=== PATIENT | female | born 1940 | race Caucasian/White ===

== ENCOUNTER → 2018-12-30 13:47 | Outpatient (CLI) | payer MEDICARE, OTHER, SELFPAY ==
--- NOTE | 2018-12-30 | DI.RAD.S_ITS ---
PROCEDURE: XR CHEST 2V INDICATIONS: COUGH TECHNIQUE: 2 views of the chest were acquired. COMPARISON: None. FINDINGS: Surgical changes and devices: None. Lungs and pleura: No acute consolidation. Scattered subsegmental atelectasis and/or scarring ill-defined subcentimeter nodule projecting in the right upper lobe. No pleural effusions or pneumothorax. Mediastinum: Mediastinal contours are normal. Heart size is normal. Bones and chest wall: No suspicious bony abnormalities. Soft tissues appear unremarkable. IMPRESSION: No acute consolidation. Scattered scarring/atelectasis. Ill-defined right upper lobe pulmonary nodule, indeterminate in the absence of prior studies. Cannot exclude metastatic or malignant possibilities at this time. Recommend further assessment with noncontrast chest CT, or alternatively at clinical discretion followup PA and lateral chest radiographs in 3 months could be performed. Findings and recommendations were personally telephoned and discussed with Dr. Chang (covering for Dr. Jolly) on 12/31/18 Dictated by: Juan Carlos Clement M.D. on 12/31/2018 at 9:14 Approved by: Juan Carlos Clement M.D. on 12/31/2018 at 9:39
== END ==
PROVIDERS: PCP Internal Medicine; Visit Provider Internal Medicine
DX: R05 Cough (principal); R91.1 Solitary pulmonary nodule
CPT/HCPCS: 71046

== ENCOUNTER → 2019-01-23 16:55 | Outpatient (CLI) | payer MEDICARE, OTHER, SELFPAY ==
--- NOTE | 2019-01-30 17:15 | PM.PFT.1 ---
Pulmonary Function Test Referral & Results Date Patient Seen: 01/23/19 Requesting provider: Frances Jolly Results: The spirometry demonstrates an FVC of 2.60 L which is 88% of predicted. The FEV1 was measured at 1.72 L which is 70% of predicted. The FEV1/FVC ratio was 66 which is 89% of predicted. Following the administration of bronchodilator there was a 47% improvement in FEF 25-75%. Lung volumes show an SVC of 2.58 L which is 88% of predicted. The diffusing capacity was measured at 16.51 which is 59% of predicted. No hemoglobin value was provided, so no correction for potential anemia could be made, if appropriate. The maximum voluntary ventilation was reduced Interpretation: This study demonstrates mild obstructive lung disease with limited evidence of benefit following bronchodilator particularly small airway flows based on improvement in FEF 25-75% There is more significant reduction in diffusing capacity suggesting more significant disease of the capillary alveolar level
== END ==
PROVIDERS: PCP Internal Medicine; Visit Provider Internal Medicine
DX: R05 Cough (principal)
CPT/HCPCS: 94060; 94726; 94729

== ENCOUNTER → 2019-02-16 11:21 | Outpatient (CLI) | payer MEDICARE, OTHER, SELFPAY ==
[2019-02-16 12:01] LABS: Add Manual Diff / Slide Review NO; Basophils Absolute Auto 0 /uL (0-100); Basophils Percent Auto 0.4 % (0-2); Eosinophils Absolute Auto 400 /uL (0-450); Eosinophils Percent Auto 6.2 % (2-4); Hematocrit 42.3 % (36-46); Hemoglobin 14.4 g/dL (12.0-16.0); Lymphocytes Absolute Auto 2100 /uL (1100-4500); Lymphocytes Percent Auto 30.4 % (25-40); Mean Corpuscular HGB Conc 33.9 % (30-36); Mean Corpuscular Hemoglobin 31.6 PG (26-34); Mean Corpuscular Volume 93.2 fL (80-100); Monocytes Absolute Auto 700 /uL (0-900); Monocytes Percent Auto 9.5 % (3-14); Neutrophils Absolute Auto 3700 /uL (1500-7000); Neutrophils Percent Auto 53.5 % (50-75); Platelet Count 277 X10^3/uL (150-400); Red Blood Cell Count 4.54 X10^6/uL (4.0-5.2); Red Cell Distribution Width 12.6 % (11.6-14.8); White Blood Cell Count 6.9 X10^3/uL (4.5-11.0)
[2019-02-16 12:31] LABS: Alanine Aminotransferase 27 IU/L (9-52); Albumin 4.4 g/dL (3.5-5.0); Albumin Globulin Ratio 1.4 (1.0-2.8); Alkaline Phosphatase 87 U/L (38-126); Aspartate Aminotransferase 42 IU/L (14-36); BUN Creatinine Ratio 23.3 (6-22); Bilirubin Total 0.5 mg/dL (0.2-1.3); Blood Urea Nitrogen 14 mg/dL (7-17); Calcium 10.2 mg/dL (8.4-10.2); Carbon Dioxide 30 mmol/L (22-32); Chloride 99 mmol/L (98-107); Estimated Glomerular Filt Rate > 60.0 mL/min (>60); Globulin 3.1 g/dL (1.7-4.1); Glucose 70 mg/dL (80-110); HEMOLYSIS < 15 (0-50); Potassium 4.7 mmol/L (3.4-5.1); Sodium 137 mmol/L (137-145); Total Protein 7.5 g/dL (6.3-8.2)
[2019-02-16 12:38] LABS: B Type Natriuretic Peptide < 100 (<100)
== END ==
PROVIDERS: PCP Internal Medicine; Visit Provider Internal Medicine
DX: R06.00 Dyspnea, unspecified (principal)
CPT/HCPCS: 36415; 80053; 83880; 85025

== ENCOUNTER → 2019-02-20 11:46 | Outpatient (CLI) | payer MEDICARE, OTHER, SELFPAY ==
--- NOTE | 2019-02-20 | DI.CT.S_ITS ---
PROCEDURE: CT CHEST WO CON INDICATIONS: LUNG NODULE TECHNIQUE: Noncontrast 2.0-2.5 mm thick sections acquired from the pulmonary apices to the posterior costophrenic angles. 7 mm thick coronal and sagittal MIP reformats were then acquired. A low radiation dose technique was utilized. COMPARISON: [facility], CR, XR CHEST 2V, 12/30/2018, 14:15. FINDINGS: Image quality: Diagnostic, given the low radiation dose technique. Lungs and pleura: At the apex of the superior segment right lower lobe seen on series 3 image 94 there is a 1.6 x 0.8 cm mildly spiculated radiodensity that extends into the major fissure superiorly, which on the lateral reformatt and projection has an appearance of tracking slightly into the major fissure and abutting the posterior pleural surface. This has a craniocaudad dimension of 1.3 cm at the pleural surface. Incidental nose made of a small calcified granuloma posterior costophrenic sulcus at the left lower lobe. Mediastinum: Heart size is normal. No pericardial effusion. No mediastinal adenopathy by size criteria. Thoracic aorta and central pulmonary arteries are normal in size. Esophagus is normal in caliber. No hiatal hernia. Bones and chest wall: No suspicious bony lesions. No vertebral body compression fractures. No axillary or supraclavicular adenopathy by size criteria. Thyroid gland appears normal where well visualized. Abdomen: Visualized upper abdomen solid organs and bowel loops appear normal in the absence of contrast. IMPRESSION: 1.6 x 0.8 x 1.3 cm mildly spiculated radiodensity centered within the apex of the superior segment of the right lower lobe, extending into the major fissure pleural surface and tracking slightly along the adjacent posterior pleural surface. Given this position and its apposition to the posterior pleural surface if this represents a pulmonary malignancy chest wall invasion at an early stage of progression would be of concern at this time. Therefore it is recommended that the patient proceeded to nuclear medicine PET CT scanning for solitary pulmonary nodule workup now to assist in differentiating between inflammatory versus malignant etiology of this finding. Old small calcified granuloma the costophrenic sulcus left lower lobe region. Dictated by: Luis Meza M.D. on 02/20/2019 at 13:53 Approved by: Luis Meza M.D. on 02/20/2019 at 14:00
== END ==
PROVIDERS: PCP Internal Medicine; Visit Provider Internal Medicine
DX: R91.1 Solitary pulmonary nodule (principal)
CPT/HCPCS: 71250

== ENCOUNTER 2019-06-16 11:00 | Day surgery (SDC) | payer MEDICARE, OTHER, SELFPAY ==
[2019-06-16 11:48] VITALS: BP 161/75; PULSE 64; RESP 16; TEMP 36.6; O2SAT 99; BMI 20.9
[2019-06-16] MEDS: CATARACT EYE COMPOUND (10 DROPS/SYRINGE) 3 DROPS EYE-OP (12:05)
[2019-06-16] MEDS: PROPARACAINE 0.5% OPHTH SOL 2 DROPS EYE-OP (12:05)
--- NOTE | 2019-06-16 12:36 | PM.PREOP ---
Pre-operative Note Interval Note History & Physical reviewed/Exam performed by Physician: No Changes to H&P: No
--- NOTE | 2019-06-16 12:36 | PM.OP.1 ---
Operative Date/Time/Diagnoses Pre-op diagnosis: Nuclear cataract right eye Procedure & Clinicians Procedure: Cataract Surgery Same procedure as scheduled: Yes Surgeon: Cornell Barrios Anesthesia Type: MAC +/- and Sedation Operative Notes Procedure in detail: Patient brought to the operating suite. Tetracaine drops placed in the right eye. Patient was prepped and draped in sterile manner. Wire lid speculum was placed in the eye. Betadine drops were placed on the eye. This was irrigated. Lidocaine jelly was placed on the eye. A paracentesis port was created with a side-port blade. 0.1 mL 1% preservative free lidocaine was injected into the anterior chamber. The anterior chamber was deepened with viscoelastic. 2.6 mm keratome was used to create a temporal clear corneal incision. Cystotome and Utrata forceps were used to create continuous tear capsulorrhexis. Balanced salt solution was used to hydro dissect the nucleus. The phacoemulsification handpiece was inserted and the nucleus was removed using the stop and chop technique. The irrigation aspiration handpiece was inserted and the remaining cortex was removed. Anterior chamber was deepened with viscoelastic. An Hinton ZCB00 intraocular lens with a power of 19.0 was injected into the capsular bag. Irrigation aspiration handpiece was inserted and the remaining viscoelastic was removed. Incision was hydrated with balanced salt solution and found to be leak free with pressure with Weck-Jenny sponges. 0.1 mL Vigamox injected anterior chamber. 0.3 mL Kenalog 10 mg was injected subconjunctivally. Lid speculum was removed. The patient left the operating room in excellent condition. Complications: none Post-operative Condition: stable Disposition: same day surgery
[2019-06-16] MEDS: CHONDROIDTIN/SOD HYALURONATE 1.05 ML SYRINGE INTRAOCULA (13:01)
[2019-06-16] MEDS: PHENYLEPHRINE/LIDOCAINE VIAL (OR) 0.2 ML EYE-OP (13:01)
[2019-06-16] MEDS: TRIAMCINOLONE 50 MG/5 ML VIAL INJ (13:01)
[2019-06-16] MEDS: LIDOCAINE JELLY 2% 5 ML 1 APPLIC TOP (13:02)
[2019-06-16] MEDS: BALANCED SALT IRRIG SOLN NO.2 500 ML, EPINEPHrine 1 MG IRR (13:02)
[2019-06-16] MEDS: MOXIFLOXACIN 0.5% OPHTH 60 DROPS/BOTTLE DROPS EYE-BOTH (13:02)
[2019-06-16] MEDS: TETRACAINE 0.5% OPHTH DROPS 4 ML 2 DROPS EYE-OP (13:02)
[2019-06-16 13:15] VITALS: BP 132/82; PULSE 63; RESP 16; TEMP 36.4; O2SAT 96
== END 2019-06-16 13:41 | disposition home or self-care (01) ==
PROVIDERS: Family Provider Internal Medicine; PCP Internal Medicine; Visit Provider Ophthalmology
PROC: (CPT 66984; principal; 2019-06-16 12:45)
DX: H25.11 Age-related nuclear cataract, right eye (principal); J44.9 Chronic obstructive pulmonary disease, unspecified
CPT/HCPCS: 66984; J0171; J2250; J3301

== ENCOUNTER 2019-07-14 08:02 | Day surgery (SDC) | payer MEDICARE, OTHER, SELFPAY ==
[2019-07-14 09:02] VITALS: BP 136/76; PULSE 74; RESP 16; TEMP 36.2; O2SAT 99; BMI 20.9
--- NOTE | 2019-07-14 09:27 | PM.PREOP ---
Pre-operative Note Interval Note History & Physical reviewed/Exam performed by Physician: No Changes to H&P: No
--- NOTE | 2019-07-14 09:27 | PM.OP.1 ---
Operative Date/Time/Diagnoses Pre-op diagnosis: Nuclear Cataract Left eye Post-op diagnosis: same Procedure & Clinicians Surgeon: Cornell Barrios Anesthesia Type: MAC +/- and Sedation Operative Notes Procedure in detail: Patient brought to the operating suite. Tetracaine drops placed in the left eye. Patient was prepped and draped in sterile manner. Wire lid speculum was placed in the eye. Betadine drops were placed on the eye. This was irrigated. Lidocaine jelly was placed on the eye. A paracentesis port was created with a side-port blade. 0.1 mL 1% preservative free lidocaine was injected into the anterior chamber. The anterior chamber was deepened with viscoelastic. 2.6 mm keratome was used to create a temporal clear corneal incision. Cystotome and Utrata forceps were used to create continuous tear capsulorrhexis. Balanced salt solution was used to hydro dissect the nucleus. The phacoemulsification handpiece was inserted and the nucleus was removed using the stop and chop technique. The irrigation aspiration handpiece was inserted and the remaining cortex was removed. Anterior chamber was deepened with viscoelastic. An Hinton ZCB00 intraocular lens with a power of 18.5 was injected into the capsular bag. Irrigation aspiration handpiece was inserted and the remaining viscoelastic was removed. Incision was hydrated with balanced salt solution and found to be leak free with pressure with Weck-Jenny sponges. 0.1 mL Vigamox injected anterior chamber. 0.3 mL Kenalog 10 mg was injected subconjunctivally. Lid speculum was removed. The patient left the operating room in excellent condition. Complications: none Post-operative Condition: stable Disposition: same day surgery
[2019-07-14] MEDS: PROPARACAINE 0.5% OPHTH SOL 2 DROPS EYE-OP (09:33)
[2019-07-14] MEDS: CATARACT EYE COMPOUND (10 DROPS/SYRINGE) 3 DROPS EYE-OP (09:34)
[2019-07-14] MEDS: LIDOCAINE JELLY 2% 5 ML 1 APPLIC TOP (09:42)
[2019-07-14] MEDS: MOXIFLOXACIN INJ 5 MG/ML VIAL EYE-OP (09:42)
[2019-07-14] MEDS: CHONDROIDTIN/SOD HYALURONATE 1.05 ML SYRINGE INTRAOCULA (09:42)
[2019-07-14] MEDS: PHENYLEPHRINE/LIDOCAINE VIAL (OR) 0.2 ML EYE-OP (09:42)
[2019-07-14] MEDS: TETRACAINE 0.5% OPHTH DROPS 4 ML 2 DROPS EYE-OP (09:42)
[2019-07-14] MEDS: TRIAMCINOLONE 50 MG/5 ML VIAL INJ (09:43)
[2019-07-14] MEDS: BALANCED SALT IRRIG SOLN NO.2 500 ML, EPINEPHrine 1 MG IRR (09:43)
[2019-07-14 10:05] VITALS: BP 126/70; PULSE 66; RESP 16; TEMP 36.9; O2SAT 99
== END 2019-07-14 10:24 | disposition home or self-care (01) ==
PROVIDERS: Family Provider Internal Medicine; PCP Internal Medicine; Visit Provider Ophthalmology
PROC: (CPT 66984; principal; 2019-07-14 09:45)
DX: H25.12 Age-related nuclear cataract, left eye (principal); J44.9 Chronic obstructive pulmonary disease, unspecified
CPT/HCPCS: 66984; J0171; J2250; J3301

== ENCOUNTER → 2020-02-03 18:40 | Outpatient (CLI) | payer MEDICARE, OTHER, SELFPAY ==
--- NOTE | 2020-02-03 | DI.MRI.S_ITS ---
PROCEDURE: MR LUMBAR SPINE WO CON INDICATIONS: Low back pain TECHNIQUE: Noncontrast sagittal T1 spin echo and T2 fast echo, sagittal STIR, axial T1 and T2 fast spin echo through the lumbar spine. In cases with scoliosis, additional coronal T2 fast spin echo may be performed. COMPARISON: None. FINDINGS: Image quality: Excellent. Alignment and Curvature: Partially visualized scoliosis. Trace retrolisthesis of L3 on L4. Bone Marrow: Multilevel degenerative endplate sclerosis and spurring. Diffuse facet arthropathy. No fracture. Spinal Cord: Conus medullaris terminates at the L1 level. Visualized cord demonstrates normal signal and size. Paraspinous Soft Tissues: No paravertebral masses. L1-L2: Normal appearance. L2-L3: No canal stenosis. Partial effacement of both lateral recesses with bilaterally symmetric appearance. Mild left foraminal stenosis. No right foraminal narrowing. L3-L4: Central disc protrusion with mild canal narrowing. Partial effacement of both lateral recesses with bilaterally symmetric appearance. Mild left foraminal narrowing. Mild/moderate right foraminal stenosis with borderline nerve root compression. L4-L5: Mild canal narrowing. Partial effacement of both lateral recesses with bilaterally symmetric appearance. Mild left foraminal narrowing with slight nerve root compression. Severe right foraminal stenosis with nerve root compression L5-S1: Mild central canal narrowing. Near complete effacement of both lateral recesses with bilaterally symmetric appearance. Severe bilateral foraminal stenoses, right greater left with nerve root compression on both sides IMPRESSION: Multilevel spondylosis and facet arthropathy. Diffuse bilateral foraminal stenoses as detailed above by spinal level Trace retrolisthesis of L3 on L4 Scoliosis Dictated by: Juan Carlos Clement M.D. on 02/04/2020 at 9:12 Approved by: Juan Carlos Clement M.D. on 02/04/2020 at 9:22
== END ==
PROVIDERS: Family Provider Internal Medicine; PCP Internal Medicine; Referring Provider Orthopaedic Surgery; Visit Provider Orthopaedic Surgery
DX: M54.5 Low back pain (principal); M47.816 Spondylosis without myelopathy or radiculopathy, lumbar region; M48.061 Spinal stenosis, lumbar region without neurogenic claudication; M48.07 Spinal stenosis, lumbosacral region; M41.9 Scoliosis, unspecified
CPT/HCPCS: 72148

== ENCOUNTER 2020-03-03 10:45 | Observation (INO) | payer MEDICARE, OTHER, SELFPAY ==
[2020-03-03 10:40] VITALS: BP 127/63; PULSE 67; RESP 14; TEMP 36.4; O2SAT 99; BMI 21.4
--- NOTE | 2020-03-03 10:45 | DI.RAD.S_ITS ---
PROCEDURE: XR HIP W PEL IF DONE LT 2V INDICATIONS: fall with left hip pain TECHNIQUE: AP pelvis with lateral view(s) of the left hip(s). COMPARISON: None. FINDINGS: Bones: No definite fractures or dislocations but there is left greater than right degenerative hip joint osteoarthritis that is moderate in overall severity. Additionally, a diagonal lucency may represent a fracture margin there is involving the upper and middle thirds of the medial border of the left symphysis pubis. Pelvic ring appears intact. No suspicious bony lesions. Soft tissues: The visualized bowel gas pattern is normal. No suspicious soft tissue calcifications. IMPRESSION: Left greater than right hip joint osteoarthritis, no definite fracture found. Incidental note is made of a possible diagonal fracture through the medial border of the upper left symphysis pubis. CT scanning is scheduled. Dictated by: Luis Meza M.D. on 03/03/2020 at 11:48 Approved by: Luis Meza M.D. on 03/03/2020 at 11:51
[2020-03-03 11:18] VITALS: BP 127/63; PULSE 66; O2SAT 93
[2020-03-03] MEDS: SODIUM CHLORIDE 0.9% 1,000 ML 150 ML IV (11:19)
[2020-03-03] MEDS: ONDANSETRON 4 MG/2 ML INJ IV (11:20)
--- NOTE | 2020-03-03 11:30 | DI.CT.S_ITS ---
PROCEDURE: CT PEL WO CON INDICATIONS: fall with severe hip and pelvis pain TECHNIQUE: Noncontrast 3 mm axial sections acquired through the bony pelvis, with coronal and sagittal reformatting. COMPARISON: [facility], CR, XR HIP W PEL IF DONE LT 2V, 03/03/2020, 10:40. FINDINGS: Image quality: Excellent. Bones: Acute fracture involving lateral portion of the left sacral ala is seen near left sacroiliac joint with up to 2.6 mm diastases at fracture site. There is also acute fracture of the medial portion of left superior pubic ramus extending to involve anteromedial aspect of left acetabulum. No significant displacement is noted. Slightly displaced fracture is noted involving medial portion of left superior pubic ramus near symphysis pubis with up to 2.7 mm displacement at fracture site. Minimally displaced fracture is also noted involving the proximal to midportion of left inferior pubic ramus. No fracture is noted in right hemipelvis. Moderate bilateral hip joint osteoarthritic changes are seen worse on the left side. Degenerative disc disease in visualized lower lumbar spine is seen. No evidence of avascular necrosis of femoral head. No suspicious intraosseous lesion. Soft tissues: There is mild soft tissue swelling adjacent to left pubic rami fracture sites. Asymmetrically enlarged left abductor muscles are seen with suggestion of ill-defined intramuscular hematoma. No significant joint effusion. No pelvic free fluid or free air. Bladder wall thickness is normal. No bowel wall thickening. IMPRESSION: 1. Acute minimally displaced fracture involving lateral portion of left sacral ala near sacroiliac joint. 2. Acute minimally displaced fractures involving medial aspect of left superior pubic ramus near symphysis pubis. Nondisplaced fracture involving lateral portion of left superior pubic ramus extending to involve anterior medial aspect of left acetabulum. Minimally displaced proximal to midshaft of left inferior pubic ramus fracture. 3. Left worse than right bilateral hip joint osteoarthritis. No evidence of avascular necrosis. 4. Asymmetrically enlarged left pelvic floor muscles with suggestion of intramuscular hematoma. No significant joint effusion. No pelvic free fluid or free air. Dictated by: Jalen Ruano M.D. on 03/03/2020 at 12:01 Approved by: Jalen Ruano M.D. on 03/03/2020 at 12:07
[2020-03-03 12:05] LABS: Add Manual Diff / Slide Review NO; Basophils Absolute Auto 0 /uL (0-100); Basophils Percent Auto 0.1 % (0-2); Eosinophils Absolute Auto 100 /uL (0-450); Hematocrit 37.7 % (36-46); Hemoglobin 12.6 g/dL (12.0-16.0); Lymphocytes Absolute Auto 700 /uL (1100-4500); Lymphocytes Percent Auto 6.7 % (25-40); Mean Corpuscular HGB Conc 33.4 % (30-36); Mean Corpuscular Hemoglobin 31.4 PG (26-34); Monocytes Absolute Auto 600 /uL (0-900); Monocytes Percent Auto 5.3 % (3-14); Neutrophils Absolute Auto 9500 /uL (1500-7000); Neutrophils Percent Auto 86.9 % (50-75); Platelet Count 191 X10^3/uL (150-400); Red Blood Cell Count 4.01 X10^6/uL (4.0-5.2); Red Cell Distribution Width 12.9 % (11.6-14.8); White Blood Cell Count 10.9 X10^3/uL (4.5-11.0)
[2020-03-03 12:19] LABS: BUN Creatinine Ratio 27.3 (6-22); Blood Urea Nitrogen 15 mg/dL (7-17); Calcium 8.9 mg/dL (8.4-10.2); Carbon Dioxide 23 mmol/L (22-32); Chloride 103 mmol/L (98-107); Estimated Glomerular Filt Rate > 60.0 mL/min (>60); Glucose 120 mg/dL (80-110); HEMOLYSIS < 15 (0-50); Potassium 4.1 mmol/L (3.4-5.1); Sodium 132 mmol/L (137-145)
--- NOTE | 2020-03-03 12:25 | ED_ITS ---
HPI - Fall General Chief Complaint: Fall Stated Complaint: GLF - L hip pain Time Seen by Provider: 03/03/20 10:45 Source: patient and EMS Mode of arrival: EMS Limitations: no limitations History of Present Illness HPI Narrative: 79-year-old female nonsmoker with history of asthma and a prior episode of lumbar radiculopathy presents with a chief complaint of severe left hip pain after an accidental fall just prior to arrival. She was walking her dog which changed another animal in pulled her onto her left side. She has significant pain with any ambulation or weight-bearing. She contacted EMS and they transported her here. In an effort to help control her pain she was given 1st a small dose of ketamine and then some fentanyl which has helped tremendously. She denies any head neck or back pain. She denies any chest pain or shortness of breath. She denies any numbness, tingling or weakness. She is otherwise well and free of complaint MD complaint: fall Onset (ago): minute(s) Fall from: standing Fall witnessed: no Place fall occurred: home Loss of consciousness: none Prolonged down time: no Symptoms prior to fall: none Context: tripped/slipped Location of injury: pelvis Quality: aching Associated symptoms (after fall): denies Related Data Home Medications Medication Instructions Recorded Confirmed Spiriva with HandiHaler 1 puff INH QDAY #0 01/21/17 ascorbic acid (vitamin C) 500 mg PO QDAY #0 01/21/17 calcium acetate(phosphat bind) 667 mg PO QDAY #0 01/21/17 cholecalciferol (vitamin D3) 1 tab PO QDAY #0 01/21/17 [Vitamin D3] glucosamine sulfate-msm 1 ea PO #0 01/21/17 olopatadine [Patanol] 1 drp OPHTH #0 01/21/17 propranolol 10 mg PO QDAY #0 01/21/17 albuterol sulfate 1 inh INHALATION QID 06/16/19 06/16/19 Previous Rx's Medication Instructions Recorded cyclobenzaprine 10 mg PO QHS #10 tab 01/21/17 Allergies Allergy/AdvReac Type Severity Reaction Status Date / Time No Known Drug Allergies Allergy Verified 03/03/20 11:24 Review of Systems Constitutional Constitutional: Denies chills, Denies fatigue, Denies fever(s), Denies frequent falls, Denies lethargy and Denies weakness Eyes Eyes: Denies change in vision, Denies eye discharge, Denies irritation and Denies loss of vision ENT Ears, Nose, Mouth, and Throat: Denies change in voice, Denies dizziness, Denies neck pain, Denies sore throat and Denies throat swelling Cardiovascular Cardiovascular: Denies chest pain, Denies irregular heart rhythm, Denies lightheadedness, Denies palpitations, Denies dyspnea, Denies dyspnea on exertion and Denies orthopnea Respiratory Respiratory: Denies cough, Denies dyspnea, Denies dyspnea on exertion and Denies wheezing Gastrointestinal Gastrointestinal: Denies abdominal pain, Denies change in bowel habits, Denies diarrhea, Denies nausea and Denies vomiting Musculoskeletal Musculoskeletal: Reports arthralgias, Denies neck pain and Denies numbness Integumentary/Breasts Skin/Breast: Denies pruritus, Denies erythema, Denies rash and Denies wounds Neurologic Neurologic: Denies behavioral changes, Denies confusion, Denies dizziness, Denies frequent falls, Denies loss of vision, Denies numbness and Denies weakness Psychiatric Psychiatric: Denies anxiety, Denies behavioral changes, Denies confusion, Denies depression, Denies homicidal ideation and Denies suicidal ideation Endocrine Endocrine: Denies fatigue, Denies flushing and Denies palpitations Hematologic/Lymphatic Hematologic/Lymphatic: Denies easy bruising Allergic/Immunologic Allergic/Immunologic: Denies urticaria, Denies throat swelling and Denies wheezing Patient History Social History household members: none Smoking Status: Unknown if ever smoked Smoking Status: Unknown if ever smoked alcohol intake frequency: 0-2 drinks per day Substance Use Type: does not use Exam Narrative Exam Narrative: GENERAL: [79] year old patient appears stated age. Well- nourished, well-developed patient, in mild distress. HEAD: Atraumatic. Normocephalic. EYES: Pupils equal round and reactive. Extraocular motions intact. No scleral icterus. No injection or drainage. ENT: Nose without bleeding, purulent drainage. Throat without erythema, tonsillar hypertrophy or exudate. Airway patent. NECK: Trachea midline. Non tender CARDIOVASCULAR: Regular rate and rhythm without murmurs, gallops, or rubs. RESPIRATORY: Clear to auscultation. Breath sounds equal bilaterally. No wheezes, rales, or rhonchi. GASTROINTESTINAL: Abdomen soft, non-tender, nondistended. EXTREMITIES: Tenderness to palpation of pubic symphysis, palpation of left lateral hip and sacrum. Closed, isolated neurovascularly intact No edema or joint tenderness. BACK: Nontender without deformity or crepitance. No flank tenderness. NEURO: AOx3. SKIN: No rash or erythema of visible areas Initial Vital Signs Initial Vital Signs: Vital Signs Temperature 97.6 F 03/03/20 10:40 Pulse Rate 67 03/03/20 10:40 Respiratory Rate 14 03/03/20 10:40 Blood Pressure 127/63 03/03/20 10:40 Pulse Oximetry 99 03/03/20 10:40 Course Orders Ordered: ED Orders 03/03/20 10:45 XR hip w pel if done LT 2V Stat 03/03/20 11:30 CT pelvis wo con Stat 03/03/20 11:55 Basic Metabolic Panel Stat Complete Blood Count AUTO DIFF Stat Prothrombin Time INR Stat Sodium Chloride (Normal Saline 0.9%) 1,000 mls @ 150 mls/hr IV CONT MOSHE Last Infusion: 03/03/20 17:26 Dose: 0 mls/hr Documented by: Admin: 03/03/20 11:19 Dose: 150 mls/hr Documented by: TINA Discontinued Medications Morphine Sulfate (Morphine) 2 mg IV NOW ONE Stop: 03/03/20 15:48 Last Admin: 03/03/20 15:53 Dose: 2 mg Documented by: TINA Ondansetron HCl (Zofran) 4 mg IV NOW ONE Stop: 03/03/20 10:46 Last Admin: 03/03/20 11:20 Dose: 4 mg Documented by: TINA Consultations Consultation #1: initial call to on site orthopedics, after reviewing CT feels that there is no acetabular involvement but suggests that images be pushed to [facility] for consultation with their pelvic specialists given the involvement of the left SI joint Consultation #2[place] [facility] [place]. Patient does not need immediate surgical intervention. He recommends up to 3 days of pain control and work with PT. If no progression at that time then re-contact. They will keep chart open and Dr. Darby will remain telecommunications line mechanic. He does recommend a Pelvic AP [place] set of plain films in the event that he is recontacted Vital Signs Vital signs: Vital Signs - 8 hr 03/03/20 10:40 03/03/20 11:18 Temperature 97.6 F Pulse Rate 67 66 Respiratory Rate 14 Blood Pressure 127/63 127/63 Pulse Oximetry 99 93 - Fall Lab Data Result diagrams: 03/03/20 11:55 03/03/20 11:55 Labs: Lab Results 03/03/20 03/03/20 03/03/20 Range/Units 11:55 11:55 11:55 WBC 10.9 (4.5-11.0) X10^3/uL RBC 4.01 (4.0-5.2) X10^6/uL Hgb 12.6 (12.0-16.0) g/dL Hct 37.7 (36-46) % MCV 94.0 (80-100) fL MCH 31.4 (26-34) PG MCHC 33.4 (30-36) % RDW 12.9 (11.6-14.8) % Plt Count 191 (150-400) X10^3/uL Neut % (Auto) 86.9 H (50-75) % Lymph % (Auto) 6.7 L (25-40) % [place] % (Auto) 5.3 (3-14) % Eos % (Auto) 1.0 L (2-4) % Baso % (Auto) 0.1 (0-2) % Neut # (Auto) 9500 H (0888-0717) /uL Lymph # (Auto) 700 L (0244-5687) /uL [place] # (Auto) 600 (0-900) /uL Eos # (Auto) 100 (0-450) /uL Baso # (Auto) 0 (0-100) /uL PT 12.0 (10.1-12.7) SECONDS INR 1.0 (0.9-1.3) Sodium 132 L (137-145) mmol/L Potassium 4.1 (3.4-5.1) mmol/L Chloride 103 (98-107) mmol/L Carbon Dioxide 23 (22-32) mmol/L BUN 15 (7-17) mg/dL Creatinine 0.55 (0.52-1.04) mg/dL Estimated GFR > 60.0 (>60) mL/min BUN/Creatinine Ratio 27.3 H (6-22) Glucose 120 H (80-110) mg/dL Calcium 8.9 (8.4-10.2) mg/dL Imaging Data CT scan - abdomen/pelvis: Radiologist's Impression: Yudith Chowdhury 79 F [address] [address] [address] Scan Report Signed Patient: Yudith Chowdhury CMR#: [id number] : [id number]:[id number] Age/Sex: 79 / FDate of Service: 03/03/20 Loc: ED Accession Number: [id number] Procedure: CT pelvis wo con Ordering Provider: Jesus Collier D.O. PROCEDURE: CT PEL WO CON INDICATIONS: fall with severe hip and pelvis pain TECHNIQUE: Noncontrast 3 mm axial sections acquired through the bony pelvis, with coronal and sagittal reformatting. COMPARISON: [facility], CR, XR HIP W PEL IF DONE LT 2V, 03/03/2020, 10:40. FINDINGS: Image quality: Excellent. Bones: Acute fracture involving lateral portion of the left sacral ala is seen near left sacroiliac joint with up to 2.6 mm diastases at fracture site. There is also acute fracture of the medial portion of left superior pubic ramus extending to involve anteromedial aspect of left acetabulum. No significant displacement is noted. Slightly displaced fracture is noted involving medial portion of left superior pubic ramus near symphysis pubis with up to 2.7 mm displacement at fracture site. Minimally displaced fracture is also noted involving the proximal to midportion of left inferior p ubic ramus. No fracture is noted in right hemipelvis. Moderate bilateral hip joint osteoarthritic changes are seen worse on the left side. Degenerative disc disease in visualized lower lumbar spine is seen. No evidence of avascular necrosis of femoral head. No suspicious intraosseous lesion. Soft tissues: There is mild soft tissue swelling adjacent to left pubic rami fracture sites. Asymmetrically enlarged left abductor muscles are seen with suggestion of ill-defined intramuscular hematoma. No significant joint effusion. No pelvic free fluid or free air. Bladder wall thickness is normal. No bowel wall thickening. IMPRESSION: 1. Acute minimally displaced fracture involving lateral portion of left sacral ala near sacroiliac joint. 2. Acute minimally displaced fractures involving medial aspect of left superior pubic ramus near symphysis pubis. Nondisplaced fracture involving lateral portion of left superior pubic ramus extending to involve anterior medial aspect of left acetabulum. Minimally displaced proximal to midshaft of left inferior pubic ramus fracture. 3. Left worse than right bilateral hip joint osteoarthritis. No evidence of avascular necrosis. 4. Asymmetrically enlarged left pelvic floor muscles with suggestion of intramuscular hematoma. No significant joint effusion. No pelvic free fluid or free air. Dictated by: Jalen Ruano M.D. on 03/03/2020 at 12:01 Approved by: Jalen Ruano M.D. on 03/03/2020 at 12:07 Discharge Plan Departure Patient Disposition: Admitted As Inpatient Clinical Impression: Closed pelvic fracture Qualifiers: Encounter type: initial encounter Pelvic bone location: unspecified part of pelvis Fracture alignment: nondisplaced Qualified Code(s): S32.9XXA - Fracture of unspecified parts of lumbosacral spine and pelvis, initial encounter for closed fracture Discharge Date/Time: 03/03/20 17:40 Admit Date/Time: 03/03/20 17:19 Admit Provider: Cheryl Merino
[2020-03-03] MEDS: MORPHINE 2 MG/ML INJ IV ×2 (15:53→19:54)
[2020-03-03 17:35] VITALS: BP 137/67; RESP 16
[2020-03-03 17:55] VITALS: BP 150/72; PULSE 76; RESP 17; TEMP 37; O2SAT 99
[2020-03-03] MEDS: SODIUM CHLORIDE 0.9% 1,000 ML 125 ML IV (18:12)
[2020-03-03 18:15] VITALS: BMI 21.3
[2020-03-03 21:25] VITALS: BP 136/69; PULSE 77; RESP 17; TEMP 36.9; O2SAT 98
[2020-03-04] VITALS (8 sets, daily range): BP systolic 107–132; BP diastolic 59–79; PULSE 67–666; RESP 14–18; TEMP 36.3–36.9; O2SAT 96–97
[2020-03-04] MEDS: ACETAMINOPHEN 325 MG TABLET PO ×5 (00:12→23:57)
[2020-03-04] MEDS: MORPHINE 2 MG/ML INJ IV ×2 (00:13→04:38)
--- NOTE | 2020-03-04 00:29 | PC.NURSE ---
Patient is alert and oriented. Breath sounds CTA with RA sat of 96%. HRR. Denies nausea. BT present and abdomen is soft. Indwelling catheter is patent; urine is clear yellow. Not willing to turn in bed due to pain although states she is shifting self slightly. Did turn onto right side using Nina tilt function to change pressure. Complains of 5/10 pain in pelvis, back and ribs; medicated with Morphine. Wearing bilateral calf SCD's. Fall risk score is high and bed alarm is activated.
[2020-03-04] MEDS: SODIUM CHLORIDE 0.9% 1,000 ML 125 ML IV ×2 (02:21→14:00)
--- NOTE | 2020-03-04 02:43 | P.HP_ITS ---
History of Present Illness History of Present Illness Date Patient Seen: 03/03/20 Time Patient Seen: 22:00 Chief complaint: GLF - L hip pain Narrative: Yudith Chowdhury is a very delightful 79-year-old female who was in her usual state of health which includes COPD, when she was walking her Greyhound dog outside. Apparently the dog saw another animal and started to take off and pulled her off her feet. She fell and was then able to move after having fallen. In the emergency department she was found to have had a nondisplaced pelvic fracture extending to the sacral ala. She has a very limited medical history only having had COPD and takes supplements for medications. She is taking any prescription oral medications. She denies hitting her head, ?black ing out?, having shortness of breath, chest pain, nausea or vomiting, dysuria, diarrhea or constipation, upper or lower extremity neuropathy. In the emergency department they did an x-ray of her hip as well as a pelvis CT and noted the closed fractures. They consulted with Dr. Darby at [facility] and he recommended conservative management and mobilization/pain control for 3 days. If she is unable to improve for the next 3 days they may be able to do a surgical pinning and would want to have her transferred at that point. CT report indicated the following findings: ?1. Acute minimally displaced fracture involving lateral portion of left sacral ala near sacroiliac joint. 2. Acute minimally displaced fractures involving medial aspect of left superior pubic ramus near symphysis pubis. Nondisplaced fracture involving lateral portion of left superior pubic ramus extending to involve anterior medial aspect of left acetabulum. Minimally displaced proximal to midshaft of left inferior pubic ramus fracture. Temperature 97.6?, blood pressure 130/65, heart rate 80, respiratory rate 16, o xygen saturation 96% on room air, weight 60 kilos, BMI 21.3. WBC was 10.9, RBC 4.01, hemoglobin 12.6, hematocrit 37.7, platelet count 191, sodium 132, potassium 4.1, chloride 103, CO2 23, creatinine 0.55, BUN 15, GFR greater than 60, glucose 120, calcium 8.9. Patient History Family & Social History Family History Father COPD (chronic obstructive pulmonary disease) Congestive heart failure Old age Mother Breast cancer Social History: household members spouse,none Prior Living Arrangements House Safety & Behavioral: Feels Safe in Current Yes Environment Been Physically Hurt or No Threatened By a Person Suicidal Ideation Description None Suicide Plan Description No Plan Tobacco & Substance use: Smoking Status quit smoking 35 years ago alcohol intake frequency 4-5 drinks per week Substance Use Type does not use Meds Home Medications and Allergies Home Medications Medication Instructions Recorded Confirmed Type Spiriva with HandiHaler 1 puff INH QDAY #0 01/21/17 03/03/20 History ascorbic acid (vitamin C) 500 mg PO BID #0 01/21/17 03/03/20 History calcium acetate(phosphat bind) 1,200 mg PO QDAY #0 01/21/17 03/03/20 History cholecalciferol (vitamin D3) 1 tab PO QDAY #0 01/21/17 03/03/20 History [Vitamin D3] glucosamine sulfate-msm 1 ea PO BID #0 01/21/17 03/03/20 History olopatadine [Patanol] 1 drp OPHTH DAILY #0 01/21/17 03/03/20 History propranolol 10 mg PO QDAY PRN #0 01/21/17 03/03/20 History albuterol sulfate 1 inh INHALATION DAILY 06/16/19 03/03/20 History Allergies Allergy/AdvReac Type Severity Reaction Status Date / Time No Known Drug Allergies Allergy Verified 03/03/20 11:24 Review of Systems Review of Systems ROS: Yes All systems reviewed with the patient and are negative except as otherwise documented Exam Vital Signs (past 8 hours): - 03/03/20 21:25 03/04/20 00:10 Temperature 98.4 F 97.6 F Pulse Rate 77 80 Respiratory Rate 17 16 Blood Pressure 136/69 130/65 Pulse Oximetry 98 96 Oxygen Delivery Method Room Air Oxygen Flow Rate 0 Narrative Exam Narrative: Gen: Alert, oriented, thin 79 y.o. female, mildly flushed HEENT: normocephalic, atraumatic, conjunctiva clear, sclera non-icteric, oral mucosa pink and moist Neck: supple, full ROM, no JVD, trachea is midline Resp: Lungs CTA, non-labored breathing CV: RRR, no murmur or rubs Abd: soft, non-tender, normoactive BTs Skin: no lesions or rashes, dry and intact Neuro: Alert and oriented X 4 w/no focal deficits. Speech clear and coherent. Extremities: Upper extremities, normally is ambulatory, negative Allen?s sign Psyche: normal mood and affect. Objective Labs Result Diagrams: 03/03/20 11:55 03/03/20 11:55 Labs: Laboratory Results - last 24 hr 03/03/20 03/03/20 03/03/20 11:55 11:55 11:55 WBC 10.9 RBC 4.01 Hgb 12.6 Hct 37.7 MCV 94.0 MCH 31.4 MCHC 33.4 RDW 12.9 Plt Count 191 Neut % (Auto) 86.9 H Lymph % (Auto) 6.7 L [place] % (Auto) 5.3 Eos % (Auto) 1.0 L Baso % (Auto) 0.1 Neut # (Auto) 9500 H Lymph # (Auto) 700 L [place] # (Auto) 600 Eos # (Auto) 100 Baso # (Auto) 0 PT 12.0 INR 1.0 Sodium 132 L Potassium 4.1 Chloride 103 Carbon Dioxide 23 BUN 15 Creatinine 0.55 Estimated GFR > 60.0 BUN/Creatinine Ratio 27.3 H Glucose 120 H Calcium 8.9 Assessment & Plan Assessment & Plan narrative: Yudith Chowdhury will be admitted for conservative management of a pelvic fracture. Pelvic fracture, acute, present on admission -she will have scheduled Tylenol 650 mg p.o. q.6 hours, ibuprofen 600 mg q.6 hours as needed for moderate pain and morphine 2 mg Q 4 hours as needed for acute pain -physical therapy to start in the morning -contact Dr. Darby at [facility] if patient does not show signs of improving. Mild hyponatremia with a sodium of 132 likely secondary to dehydration, present on admission -patient will receive normal saline at 125 mL/hour overnight recheck in the morning COPD, chronic and stable -Incentive spirometry to prevent pneumonia due to immobility -continue home doses of Spiriva 18 mcg 1 puff daily and albuterol MDI 1 puff daily Consults: Dr. Haque Orthopedic Surgery consult and involvement is appreciated. Patient is inpatient status as her stay is likely to exceed 2 midnights. FEN: NS at 125 ml/hour, general diet, BMP in the am. VTE prophylaxis: Bilateral SCDs Dispo: Unknown at this time Code Status: DNR/DNI as discussed with patient COVID-19 COVID-19 status: Not tested Quality VTE Deep Vein Thrombosis/Pulmonary Embolism Present on Admission: No
[2020-03-04] MEDS: PANTOPRAZOLE 40 MG TABLET PO (05:39)
[2020-03-04] MEDS: CODEINE/ACETAMINOPHEN 30/300 TABLET 1 TAB PO ×2 (08:54→21:31)
[2020-03-04] MEDS: IBUPROFEN 600 MG TABLET PO ×2 (08:54→21:27)
[2020-03-04] MEDS: ALBUTEROL HFA 60 PUFF/8 GM INH INH (09:43)
[2020-03-04] MEDS: TIOTROPIUM BROMIDE 18 MCG INHALER INH (09:44)
--- NOTE | 2020-03-04 10:47 | PT.IIE ---
Physical Therapy Inpatient Evaluation/Re-Eval M1 PT/OT-IP Prior Functional Status Start: 03/04/20 12:08 Freq: NEEDED Status: Active Protocol: Document 03/04/20 10:47 AB (Rec: 03/04/20 12:43 AB [id number]) Medical Review Prior Functional Status Medical History Reviewed Yes Communication able to make needs known Mobility and Gait stated that she is independent with all mobilities and ambulation without AD Social History Household Members none Living Arrangements House Number of Floors (Floors) Two Floors Number of Stairs To Enter/Railing? 6 steps with R rail to enter from the back 6 steps with bilateral wide rails (can only hold on to one rail at a time) from the front pt stated that she can stay on the main level of the house and use her guest room 10+7 steps with L rail to get to bedroom level Home Environment Standard Height Toilet,Tub/ Shower Home Equipment Quad Cane Additional Social History Comment stated that her sister from [place] might be able to come and assist her M2 PT-IP Current Condition Start: 03/04/20 12:08 Freq: NEEDED Status: Active Protocol: Document 03/04/20 10:47 AB (Rec: 03/04/20 12:43 AB [id number]) Physical Therapy Current Condition Current Condition Evaluation Date 03/04/20 Treatment Diagnosis L pelvic fracture; difficulty in walking Onset Date 03/03/20 M3 PT-IP Subjective Start: 03/04/20 12:08 Freq: NEEDED Status: Active Protocol: Document 03/04/20 10:47 AB (Rec: 03/04/20 12:43 AB [id number]) Subjective Physical Therapy Visit Type Type Initial Evaluation Visit Start Time 10:47 Visit Stop Time 11:27 Total Visit Minutes 40 Number of PLEAT TAPER Visits 0 Physical Therapy Visit Comments Patient Comments pt hesistant to do PT; stated that she does not want to but knows that she has to Therapy Pain Assessment Pain When Pain Assessed During Mobility Pain Present Pain Present Pain Reported Location left pelvis Scale Used pain scale not stated Pain Management Techniques Apply Cold,Distraction, Modification of Treatment, Timing of Activity with Medications M4 PT-IP Mobility and Gait Start: 03/04/20 12:08 Freq: NEEDED Status: Active Protocol: Document 03/04/20 10:47 AB (Rec: 03/04/20 12:43 AB [id number]) PT-Bed Mobility Assessment Supine to Sit Supine to Sit Maximum Assistance,1 Person Assistance,2 Person Assistance ,Head of Bed Elevated Scooting Scooting to Edge of Bed Maximum Assistance PT-Transfer Assessment Sit to and From Stand Sit to and from Stand Moderate Assistance,1 Person Assistance,Use of Upper Extremities Equipment Transfer Assistive Device Gait Belt,Front Wheeled Walker Orthotic/Prosthetic Devices or Brace: No Transfers Transfer Destination Chair Transfer Technique Stand Step Pivot Transfer Ability Level of Assist Moderate Assistance,1 Person Assistance,Use of Upper Extremities Comments Mobility Comments pt completed supine to sit max A and max cues with HOB elevated. required max A for scooting and min to mod A with intial sitting with increase posterior trunk lean and guarding. instructed pt to correct position. assist to scoot to EOB max A x 1-2 and max cues and was able to maintain sitting CGA after repositioning. completed sit to stand mod A and cues and completed ~ 5 ft of ambulation and rested on chair. required max A for controlled descent on chair. pt agreed to do more ambulation. completed sit to stand from chair mod A and cues an ambulated ~ 30 ft using FWW mod A and cues. pt agreed to sit up on chair. positioned on chair. call light and table placed within reach. informed nurse regarding pt's mobility. Gait Assessment Gait Gait Assistance Required: Moderate Assistance,1 Person Assist Distance (Feet) 30 Able to Maintain Weight Bearing Status Yes During Gait Assistive Devices Assistive Device Gait Belt,Front Wheeled Walker Orthotic/Prosthetic Devices or Brace: No Gait Deviations General Gait Pattern Antalgic,Decreased Stride Length,Decreased Feet Clearance,Step-to Gait Factors Limiting Gait Function Factors Limiting Gait Function Decreased Activity Tolerance, Decreased Strength,Limited Range of Motion,Pain,Poor Balance,Poor Safety Awareness Comments Gait Comments pt ambulated 5 ft +30 ft using FWW mod A and cues. presents with heavy use of UE on FWW for support. PT-Balance Assessment Sitting Balance and Reactions Static Sitting Balance Ability Good Dynamic Sitting Balance Ability Good Standing Balance and Reactions Static Standing Balance Ability Fair Dynamic Standing Balance Ability Fair Device Used FWW M5 PT-IP Objective Assessments Start: 03/04/20 12:08 Freq: NEEDED Status: Active Protocol: Document 03/04/20 10:47 AB (Rec: 03/04/20 12:43 AB [id number]) Orientation Orientation/Cognition Level of Alertness Alert Orientation Name,Age,Birthday,Month,Date, Year,Day of Week,Place, Situation Language Function Ability No Deficits Noted Safety Awareness Understands Safety Issues Memory Description No Deficits Noted Gross Range of Motion Lower Extremity ROM Assessment Within Functional Limits Impairments guarded on LLE with hip flexion Strength Lower Extremity Strength Assessment Left Impaired Comments Strength Comments LLE pain limiting ROM and strength Coordination Assessment Gross Coordination Gross Coordination WNL Sensation Assessment Sensation Gross Sensation WNL Muscle Tone Muscle Tone WNL Yes M6 PT-IP Treatment Start: 03/04/20 12:08 Freq: NEEDED Status: Active Protocol: Document 03/04/20 10:47 AB (Rec: 03/04/20 12:43 AB [id number]) Physical Therapy Treatment Education Education Provided Safety M7 PT-IP Assessment and Plan Start: 03/04/20 12:08 Freq: NEEDED Status: Active Protocol: Document 03/04/20 10:47 AB (Rec: 03/04/20 12:43 AB [id number]) PT Summary Assessment and Plan Potential Rehabilitation Potential Good Status of Condition at Evaluation Evolving Summary Impairments Pain,ROM,Strength,Balance, Coordination,Sensation,Tone, Cognition,Bed Mobility, Transfers,Gait,Activity Tolerance Assessment Summary pt requiring max A with bed mobility and mod A for transfers and ambulation. pt very guarded and c/o pain on L pelvis/hip area affecting mobility. pt lives alone and does not have anybody to assist her at this time. d/c plan depending on progress but at this time, may require SNF rehab. will continue to assess progress. Goals Bed Mobility Goal Standby Assistance Transfer Goal Standby Assistance,Front Wheeled Walker Gait Goal Standby Assistance,Front Wheel Walker Gait Distance 100 Other Goals up/down 6 steps R rail SBA Days to Meet Goals 10 Frequency of Treatment Frequency Of Treatment Once a Day Treatment Plan Physical Therapy Treatment Plan Bed Mobility Training,Transfer Training,Gait Training, Therapeutic Exercise,Balance Retraining,Discharge Planning, Hot or Cold Pack,Neuromuscular Re-ed,Coordination Retraining Other Recommendations and Next Treatment ambulation Focus Recommendations To Nursing Amount of Assist Needed 1 Person Assist Discharge Recommendations PT Discharge Recommendations SNF Rehab Equipment Needed for Home Before FWW Discharge Transportation Needs at Discharge Private Vehicle,Wheelchair/ Cabulance
--- NOTE | 2020-03-04 12:20 | PM.CN ---
History of Present Illness Consult details Date Patient Seen: 03/04/20 Time Patient Seen: 12:20 Chief complaint: GLF - L hip pain Reason for consult: LC1 pelvic ring injury Narrative: Patient is a 79-year-old female who was walking her dog when the dog saw another animal and started to take off and pulled her off her feet. She fell and was then able to move after having fallen. She denies striking her head. Denies any other injuries. In the emergency department she was found to have had a nondisplaced pelvic fracture extending to the sacral ala. PMhx includes COPD and takes supplements for medications. Meds Home Medications and Allergies Home Medications Medication Instructions Recorded Confirmed Type Spiriva with HandiHaler 1 puff INH QDAY #0 01/21/17 03/03/20 History ascorbic acid (vitamin C) 500 mg PO BID #0 01/21/17 03/03/20 History calcium acetate(phosphat bind) 1,200 mg PO QDAY #0 01/21/17 03/03/20 History cholecalciferol (vitamin D3) 1 tab PO QDAY #0 01/21/17 03/03/20 History [Vitamin D3] glucosamine sulfate-msm 1 ea PO BID #0 01/21/17 03/03/20 History olopatadine [Patanol] 1 drp OPHTH DAILY #0 01/21/17 03/03/20 History propranolol 10 mg PO QDAY PRN #0 01/21/17 03/03/20 History albuterol sulfate 1 inh INHALATION DAILY 06/16/19 03/03/20 History Allergies Allergy/AdvReac Type Severity Reaction Status Date / Time No Known Drug Allergies Allergy Verified 03/03/20 11:24 Exam Vital Signs (past 8 hours): - 03/04/20 08:00 03/04/20 10:03 03/04/20 11:52 Temperature 98.1 F 98.3 F Pulse Rate 70 76 73 Respiratory Rate 14 18 16 Blood Pressure 121/66 112/71 Pulse Oximetry 96 97 Oxygen Delivery Method Room Air Oxygen Flow Rate 0 Narrative Exam Narrative: NV intact in BLE. TTP over the pubic symphysis and the left posterior sacrum. Pain with active ROM of bilateral hips. No skin breaks. Objective Imaging CT scan - pelvis: My impression: Multiple pelvic ring fracture involving the left sacral ala as well as the superior and inferior rami on the left. Pubic root fracture of the left superior rami. Radiologist's impression: 1. Acute minimally displaced fracture involving lateral portion of left sacral ala near sacroiliac joint. 2. Acute minimally displaced fractures involving medial aspect of left superior pubic ramus near symphysis pubis. Nondisplaced fracture involving lateral portion of left superior pubic ramus extending to involve anterior medial aspect of left acetabulum. Minimally displaced proximal to midshaft of left inferior pubic ramus fracture. 3. Left worse than right bilateral hip joint osteoarthritis. No evidence of avascular necrosis. 4. Asymmetrically enlarged left pelvic floor muscles with suggestion of intramuscular hematoma. No significant joint effusion. No pelvic free fluid or free air. Labs Result Diagrams: 03/03/20 11:55 03/03/20 11:55 Labs: Laboratory Results - last 24 hr 03/03/20 11:55 Sodium 132 L Potassium 4.1 Chloride 103 Carbon Dioxide 23 BUN 15 Creatinine 0.55 Estimated GFR > 60.0 BUN/Creatinine Ratio 27.3 H Glucose 120 H Calcium 8.9 Assessment & Plan Assessment & Plan narrative: Patient is a 79 yo F with a LC1 pelvic ring injury including pubic root fracture on the left side. These can often times be treated conservatively with protected weight bearing and mobilization. However, if patient is not able to mobilize due to pain it is reasonable to place SI screws for posterior ring stabilization to help with mobilization, this would require transfer to [facility]. ER spoke to Dr. Darby prior to patient admission. If she cannot mobilize within 3 days consider trasnfer. - partial weight bearing LLE - attempt to mobilize - if unable to mobilize by day 3 consider transfer for SI screw placement Time Spent With Patient Time with patient: 15-24 minutes
--- NOTE | 2020-03-04 12:48 | PC.NURSE ---
Patient is sitting up in the chair after getting up with PT... She is a 1person assist with walker and slow movement. Given 1 tylenol #3 and effective for patients pain control. She is going to go for a walk with TAX COMPLIANCE MANAGER now.
--- NOTE | 2020-03-04 14:51 | CM.DANOTE ---
Discharge Planning/Care Management Case received, EMR reviewed and met with pt this morning during Team Bedside Rounds. Introduced self and role. PT is an 79 year old male female who admitted yesterday evening to care of hospitalist team. PCP: Frances Jolly. Consulting: Dr. Haque/[facility] Payer: Medicare and [employer] Admission status: Per UR RN Facundo: INPT order that was then changed to OBS today. A referral was sent in to EHR to review: Facundo reports decision: Agreeing with OBS. PT has worked with pt today/OT order is now obtained. Dr. Appiah explained to all, in Rounds that Dr. Haque had conferred with [facility] the severity of the pelvic fracture. The plan at this time is to see if pt is able to improve after an continued work with PT in the hospital for 3 days. If improvement is not good, surgery will be needed and transfer to [facility] would be put in place. Dr. Appiah stated she was keeping pt here until Saturday. Have checked back in this afternoon with pt after seeing the PT eval notes. SNF is one of the recommendations. At this time if snf needed pt would need to pay privately. Pt says she is heartened that she was actually able to walk a bit with PT and then with the MH TEACHER. She does live alone. Her resides at the [facility] in [place]. She is planning to accept her sister Juliette's offer to come from [place] for supportive help. Discussed pvt snf stay, possible LONG-TERM with HH stay. HH and prn private caregivers with sister's support. Pt says she is very aware of the costs of different types of care as she has gone through all of this with the progressive needs her has had. At this point pt may well do much better tomorrow. Will plan to check in with her again with intent to narrow down the d/c dispo options. CM Discharge Assessment Start: 03/04/20 14:46 Freq: Status: Active Protocol: Document 03/04/20 14:46 ITV (Rec: 03/04/20 14:47 ITV [id number]) Discharge Planning Assessment Advance Directives? Yes History Provided By Patient,Medical Record Prior Living Arrangements House Household Members none Independent with ADL's Yes Is patient alert and oriented? Yes Review Status In Process Document 03/04/20 14:50 ITV (Rec: 03/04/20 14:51 ITV [id number]) Discharge Planning Assessment Advance Directives? Yes History Provided By Patient,Medical Record Prior Living Arrangements House Household Members none Independent with ADL's Yes Is patient alert and oriented? Yes Review Status In Process
--- NOTE | 2020-03-04 17:27 | P.PN_ITS ---
Subjective Subjective Date Patient Seen: 03/04/20 Interval history: The patient is an 79-year-old female who was admitted to the hospital following a fall resulting in a pubic ramus fracture. Patient was very hesitant earlier this morning to ambulate. However she has tolerated Tylenol, i buprofen, Tylenol No. 3 very well. She was able to sit up to a chair and ambulate with a walker earlier today. She reports her pain is much improved. Her mood seems to be improved as well. Exam Vital Signs (past 8 hours): - 03/04/20 10:03 03/04/20 11:52 03/04/20 15:40 Temperature 98.3 F 97.7 F Pulse Rate 76 73 666 H Respiratory Rate 18 16 17 Blood Pressure 112/71 121/66 Pulse Oximetry 97 96 Oxygen Delivery Method Room Air Oxygen Flow Rate 0 Narrative Exam Narrative: Elderly female sitting in bed in no obvious distress Lungs: Clear to auscultation Cardiac exam: Regular rate and rhythm normal S1-S2 Abdomen: Soft nontender nondistended Extremities: No edema Objective Labs Result Diagrams: 03/03/20 11:55 03/03/20 11:55 Assessment & Plan Assessment & Plan narrative: 1. Pelvic fracture - Multiple pelvic ring fracture involving the left sacral ala as well as the superior and inferior rami on the left. Pubic root fracture of the left superior rami. -continue physical therapy and pain control -continue to mobilize patient as tolerated -if the patient plateaus or is unable to mobilize further consider transfer to [facility] for definitive surgical treatment -however that does not appear to be indicated at this point -suspect low velocity fall resulting in pelvic fracture likely related to underlying osteoporosis -will need to start treatment for osteoporosis to include a bisphosphonate as an outpatient 2. COPD -not currently active -continue albuterol as -continue Spiriva 3. Hyperlipidemia -will defer to PCP to initiate nutritional therapy and or drug treatment as indicated Will discuss with case management tomorrow whether home with home health versus skilled rehab will be indicated at discharge. Quality VTE Deep Vein Thrombosis/Pulmonary Embolism Present on Admission: No
--- NOTE | 2020-03-04 23:16 | PC.NURSE ---
Pt is A and O x 4, VSS. MELODY Clement oked DC fluids as pt is eating and drinking well. Pt has worked with PT/OT but is hesitant to move in a significant manner yetl.. S1, S2, LS clear. +BTs.
[2020-03-05] VITALS (7 sets, daily range): BP systolic 119–140; BP diastolic 66–75; PULSE 59–81; RESP 14–17; TEMP 36.1–37; O2SAT 95–98
[2020-03-05] MEDS: ACETAMINOPHEN 325 MG TABLET PO ×2 (05:53→23:51)
[2020-03-05] MEDS: PANTOPRAZOLE 40 MG TABLET PO (05:53)
[2020-03-05] MEDS: ALBUTEROL HFA 60 PUFF/8 GM INH INH (08:10)
[2020-03-05] MEDS: TIOTROPIUM BROMIDE 18 MCG INHALER INH (08:10)
--- NOTE | 2020-03-05 09:41 | PM.PN.1 ---
Subjective Subjective Date Patient Seen: 03/05/20 Time Patient Seen: 09:41 Interval history: Patient states her pain is manageable. Denies fever chills. No nausea vomiting. Patient has been up with physical therapy. Otherwise without complaints. Exam Vital Signs (past 8 hours): - 03/05/20 01:54 03/05/20 06:00 03/05/20 08:19 Temperature 97.0 F L 96.9 F L Pulse Rate 59 L 70 74 Respiratory Rate 16 16 14 Blood Pressure 127/71 125/72 Pulse Oximetry 96 95 96 Oxygen Delivery Method Room Air Oxygen Flow Rate 0 Narrative Exam Narrative: 79-year-old female resting comfortably in bed in no apparent distress. Motor function is intact bilateral lower extremities. Both legs are warm and dry. Sensation grossly intact to light touch bilateral lower extremities. Objective Labs Result Diagrams: 03/03/20 11:55 03/03/20 11:55 Assessment & Plan Assessment & Plan narrative: Per Dr. Haque 03/04/2020: Patient is a 79 yo F with a LC1 pelvic ring injury including pubic root fracture on the left side. These can often times be treated conservatively with protected weight bearing and mobilization. However, if patient is not able to mobilize due to pain it is reasonable to place SI screws for posterior ring stabilization to help with mobilization, this would require transfer to [facility]. ER spoke to Dr. Darby prior to patient admission. If she cannot mobilize within 3 days consider trasnfer. - partial weight bearing LLE - attempt to mobilize - if unable to mobilize by day 3 consider transfer for SI screw placement 03/05/2020 Continue to mobilize with PT. Patient lives alone. Dr. Appiah working on plan for DC to home or SNF. Quality VTE Deep Vein Thrombosis/Pulmonary Embolism Present on Admission: No
--- NOTE | 2020-03-05 09:52 | PC.NURSE ---
Addendum entered by Manuelito Marks R.N. 03/05/20 11:27: Pt working with PT/OT presently. Addendum entered by Manuelito Marks R.N. 03/05/20 10:30: Pt c/o no BM over at least 3 days. MOM , Senna and Colace given as ordered. PT to see Pt soon regarding mobility and planning for home needs. Original Note: Pt alert and oriented offers no overt complaint although does comment on hips hurting if she coughs or tries to shift in bed. PT to see and assess to day. Pt responsive and conversant. Romeo patent. Take po fluids well.
[2020-03-05] MEDS: CODEINE/ACETAMINOPHEN 30/300 TABLET 1 TAB PO ×2 (10:13→20:58)
[2020-03-05] MEDS: MAGNESIUM HYDROXIDE 30 ML UDC PO (10:13)
[2020-03-05] MEDS: SENNOSIDES 8.6 MG TABLET 17.2 MG PO ×2 (10:14→20:58)
[2020-03-05] MEDS: DOCUSATE 250 MG CAPSULE PO ×2 (10:14→20:58)
--- NOTE | 2020-03-05 10:57 | CM.DPC ---
DCP: continued: met again with pt during Team Bedside Rounds and afterwards with followup updates on the POC and d/c plan going forward. P: Dr. Appiah states she will keep pt again today but it is clear that she is progressing in her recovery and she will be ready for a d/c to home setting or snf (at private pay) by tomorrow. Pt has been talking with family: her daughter who lives in [place] is here, is physically able to help her and will be staying with her for awhile as she recovers at home. Pt's sister is also still coming from [place] and will stay on for a few months for supportive care. Pt plans to hire [facility] for some care and is provided that brochure as she will be setting this up herself. PT and OT are working with pt. Caregiver training is planned for today with her daughter. HH RN/PT/OT/SENIOR BUSINESS INTELLIGENCE ANALYST will be set up: pt's home address is confirmed: [address] [place] [id number] Agency choice list: discussed: choice: [facility]: referral given via phone conversation and fax: accepted: the liaison will follow up with a call to pt on her cell before d/c to discuss their process and answer any questions. Face/Face document will be completed. Order will be obtained from Dr. Appiah. Transport: discussed: Ambulance is preferred: pt at this time is unable to sit up for period of time without lots of pain. She is unable to safely do stairs: has 6 to entry of home. PT Ashley warns that pt's WB status is such that stairs is likely not doable. Pt wished to get an approximate idea of cost if she did have to pay for ambulance (which would first be billed to her Medicare and [facility]. [facility]: Haris stated that IF a pt has to pay privately the base rate for ambulance is $600 and $12.00 a mile (IH to her home in [place]). Pt states this would be doable for her if need be. More will be known re this after some training with caregiver and focus on the stairs. Admission status: remains OBS at this time. DC is planned for tomorrow.
--- NOTE | 2020-03-05 11:20 | PT.IPTN ---
Physical Therapy Treatment Note M2 PT-IP Current Condition Start: 03/04/20 12:08 Freq: NEEDED Status: Active Protocol: Document 03/04/20 10:47 AB (Rec: 03/04/20 12:43 AB [id number]) Physical Therapy Current Condition Current Condition Evaluation Date 03/04/20 Treatment Diagnosis L pelvic fracture; difficulty in walking Onset Date 03/03/20 M3 PT-IP Subjective Start: 03/04/20 12:08 Freq: NEEDED Status: Active Protocol: Document 03/05/20 11:20 AB (Rec: 03/05/20 12:50 AB [id number]) Subjective Physical Therapy Visit Type Type Treatment Note Visit Start Time 11:20 Visit Stop Time 12:06 Total Visit Minutes 46 Number of SEM MANAGER Visits 0 Therapy Pain Assessment Pain When Pain Assessed At Rest Pain Present Pain Present Pain Reported Location left pelvis Intensity 3 Scale Used Numeric (0 - 10) Pain Management Techniques Apply Cold,Re-positioning, Timing of Activity with Medications M4 PT-IP Mobility and Gait Start: 03/04/20 12:08 Freq: NEEDED Status: Active Protocol: Document 03/05/20 11:20 AB (Rec: 03/05/20 12:50 AB [id number]) PT-Bed Mobility Assessment Supine to Sit Supine to Sit Maximum Assistance,1 Person Assistance Sit to Supine Sit to Supine Moderate Assistance,1 Person Assistance PT-Transfer Assessment Sit to and From Stand Sit to and from Stand Contact Guard Assistance,1 Person Assistance,Use of Upper Extremities Equipment Transfer Assistive Device Gait Belt,Front Wheeled Walker Orthotic/Prosthetic Devices or Brace: No Transfers Transfer Destination Bed,Chair Transfer Technique ambulated using FWW Transfer Ability Level of Assist Contact Guard Assistance, Minimal Assistance,1 Person Assistance,Use of Upper Extremities Comments Mobility Comments checked on pt 1015 am: talked to pt regarding mobility assistance and stated that her daughter from [facility] will be staying with her to assist. informed pt regarding doctor 's new order for 50% PWB on LLE and how it is going to affect stair climbing. pt stated that she will have the ambulance to to her in to the house. arranged for caregiver training and pt agreed. pt called her daughters and will come 1115 to do training. checked in with pt again and daughters in room for training . educated pt and family regarding weight bearing restriction. educated daughter on how to use safety belt and how to assist pt. daughter was able to put the safety belt on and assist pt with ambulation in room. pt ambulated to the bed. educated daughter on how to assist pt with supine<>sit . daughter was able to provide assistance. pt ambulated back to chair using FWW with daughter assisting. pt was able to maintain weight bearing precaution. positioned pt in bed. call light and table placed within reach. Gait Assessment Gait Gait Assistance Required: Contact Guard Assist Distance (Feet) 40 Able to Maintain Weight Bearing Status Yes During Gait Assistive Devices Assistive Device Gait Belt,Front Wheeled Walker Gait Deviations General Gait Pattern Antalgic,Decreased Stride Length,Decreased Feet Clearance Factors Limiting Gait Function Factors Limiting Gait Function Decreased Activity Tolerance, Decreased Strength,Pain,Poor Balance,Poor Safety Awareness M5 PT-IP Objective Assessments Start: 03/04/20 12:08 Freq: NEEDED Status: Active Protocol: Document 03/04/20 10:47 AB (Rec: 03/04/20 12:43 AB [id number]) Orientation Orientation/Cognition Level of Alertness Alert Orientation Name,Age,Birthday,Month,Date, Year,Day of Week,Place, Situation Language Function Ability No Deficits Noted Safety Awareness Understands Safety Issues Memory Description No Deficits Noted Gross Range of Motion Lower Extremity ROM Assessment Within Functional Limits Impairments guarded on LLE with hip flexion Strength Lower Extremity Strength Assessment Left Impaired Comments Strength Comments LLE pain limiting ROM and strength Coordination Assessment Gross Coordination Gross Coordination WNL Sensation Assessment Sensation Gross Sensation WNL Muscle Tone Muscle Tone WNL Yes M6 PT-IP Treatment Start: 03/04/20 12:08 Freq: NEEDED Status: Active Protocol: Document 03/05/20 11:20 AB (Rec: 03/05/20 12:50 AB [id number]) Physical Therapy Treatment Education Education Provided Weight Bearing Status,Safety M7 PT-IP Assessment and Plan Start: 03/04/20 12:08 Freq: NEEDED Status: Active Protocol: Document 03/05/20 11:20 AB (Rec: 03/05/20 12:50 AB [id number]) PT Summary Assessment and Plan Potential Rehabilitation Potential Good Summary Impairments Pain,ROM,Strength,Balance, Coordination,Sensation,Tone, Cognition,Bed Mobility, Transfers,Gait,Activity Tolerance Assessment Summary caregiver training conducted and pt's daughter was able to assist pt safely. pt stated that she will go into the house by an ambulance service. inform pt regarding home health PT and agreed. Goals Bed Mobility Goal Standby Assistance Transfer Goal Standby Assistance,Front Wheeled Walker Gait Goal Standby Assistance,Front Wheel Walker Gait Distance 100 Other Goals up/down 6 steps R rail SBA Days to Meet Goals 10 Frequency of Treatment Frequency Of Treatment Once a Day Treatment Plan Physical Therapy Treatment Plan Bed Mobility Training,Transfer Training,Gait Training, Therapeutic Exercise,Balance Retraining,Discharge Planning, Hot or Cold Pack,Neuromuscular Re-ed,Coordination Retraining Other Recommendations and Next Treatment ambulation Focus Recommendations To Nursing Amount of Assist Needed 1 Person Assist Discharge Recommendations PT Discharge Recommendations Home with 18/03 Assist,Home Health Transportation Needs at Discharge Stretcher/Ambulance
--- NOTE | 2020-03-05 11:20 | PT.IPTN ---
Physical Therapy Treatment Note M2 PT-IP Current Condition Start: 03/04/20 12:08 Freq: NEEDED Status: Active Protocol: Document 03/04/20 10:47 AB (Rec: 03/04/20 12:43 AB [id number]) Physical Therapy Current Condition Current Condition Evaluation Date 03/04/20 Treatment Diagnosis L pelvic fracture; difficulty in walking Onset Date 03/03/20 M3 PT-IP Subjective Start: 03/04/20 12:08 Freq: NEEDED Status: Active Protocol: Document 03/05/20 11:20 AB (Rec: 03/05/20 12:50 AB [id number]) Subjective Physical Therapy Visit Type Type Treatment Note Visit Start Time 11:20 Visit Stop Time 12:06 Total Visit Minutes 46 Notes received MD order for PWB on LLE. Clarified order with CAMRYN Amador and stated that pt can do 50% PWB on LLE if pt can but if pt can't can do up to 70%. Number of FRONT OFFICE SPEC Visits 0 Therapy Pain Assessment Pain When Pain Assessed At Rest Pain Present Pain Present Pain Reported Location left pelvis Intensity 3 Scale Used Numeric (0 - 10) Pain Management Techniques Apply Cold,Re-positioning, Timing of Activity with Medications M4 PT-IP Mobility and Gait Start: 03/04/20 12:08 Freq: NEEDED Status: Active Protocol: Document 03/05/20 11:20 AB (Rec: 03/05/20 12:50 AB [id number]) PT-Bed Mobility Assessment Supine to Sit Supine to Sit Maximum Assistance,1 Person Assistance Sit to Supine Sit to Supine Moderate Assistance,1 Person Assistance PT-Transfer Assessment Sit to and From Stand Sit to and from Stand Contact Guard Assistance,1 Person Assistance,Use of Upper Extremities Equipment Transfer Assistive Device Gait Belt,Front Wheeled Walker Orthotic/Prosthetic Devices or Brace: No Transfers Transfer Destination Bed,Chair Transfer Technique ambulated using FWW Transfer Ability Level of Assist Contact Guard Assistance, Minimal Assistance,1 Person Assistance,Use of Upper Extremities Comments Mobility Comments checked on pt 1015 am: talked to pt regarding mobility assistance and stated that her daughter from [facility] will be staying with her to assist. informed pt regarding doctor 's new order for 50% PWB on LLE and how it is going to affect stair climbing. pt stated that she will have the ambulance to to her in to the house. arranged for caregiver training and pt agreed. pt called her daughters and will come 1115 to do training. checked in with pt again and daughters in room for training . educated pt and family regarding weight bearing restriction. educated daughter on how to use safety belt and how to assist pt. daughter was able to put the safety belt on and assist pt with ambulation in room. pt ambulated to the bed. educated daughter on how to assist pt with supine<>sit . daughter was able to provide assistance. pt ambulated back to chair using FWW with daughter assisting. pt was able to maintain weight bearing precaution. positioned pt in bed. call light and table placed within reach. Gait Assessment Gait Gait Assistance Required: Contact Guard Assist Distance (Feet) 40 Able to Maintain Weight Bearing Status Yes During Gait Assistive Devices Assistive Device Gait Belt,Front Wheeled Walker Gait Deviations General Gait Pattern Antalgic,Decreased Stride Length,Decreased Feet Clearance Factors Limiting Gait Function Factors Limiting Gait Function Decreased Activity Tolerance, Decreased Strength,Pain,Poor Balance,Poor Safety Awareness M5 PT-IP Objective Assessments Start: 03/04/20 12:08 Freq: NEEDED Status: Active Protocol: Document 03/04/20 10:47 AB (Rec: 03/04/20 12:43 AB [id number]) Orientation Orientation/Cognition Level of Alertness Alert Orientation Name,Age,Birthday,Month,Date, Year,Day of Week,Place, Situation Language Function Ability No Deficits Noted Safety Awareness Understands Safety Issues Memory Description No Deficits Noted Gross Range of Motion Lower Extremity ROM Assessment Within Functional Limits Impairments guarded on LLE with hip flexion Strength Lower Extremity Strength Assessment Left Impaired Comments Strength Comments LLE pain limiting ROM and strength Coordination Assessment Gross Coordination Gross Coordination WNL Sensation Assessment Sensation Gross Sensation WNL Muscle Tone Muscle Tone WNL Yes M6 PT-IP Treatment Start: 03/04/20 12:08 Freq: NEEDED Status: Active Protocol: Document 03/05/20 11:20 AB (Rec: 03/05/20 12:50 AB [id number]) Physical Therapy Treatment Education Education Provided Weight Bearing Status,Safety M7 PT-IP Assessment and Plan Start: 03/04/20 12:08 Freq: NEEDED Status: Active Protocol: Document 03/05/20 11:20 AB (Rec: 03/05/20 12:50 AB [id number]) PT Summary Assessment and Plan Potential Rehabilitation Potential Good Summary Impairments Pain,ROM,Strength,Balance, Coordination,Sensation,Tone, Cognition,Bed Mobility, Transfers,Gait,Activity Tolerance Assessment Summary caregiver training conducted and pt's daughter was able to assist pt safely. pt stated that she will go into the house by an ambulance service. inform pt regarding home health PT and agreed. Goals Bed Mobility Goal Standby Assistance Transfer Goal Standby Assistance,Front Wheeled Walker Gait Goal Standby Assistance,Front Wheel Walker Gait Distance 100 Other Goals up/down 6 steps R rail SBA Days to Meet Goals 10 Frequency of Treatment Frequency Of Treatment Once a Day Treatment Plan Physical Therapy Treatment Plan Bed Mobility Training,Transfer Training,Gait Training, Therapeutic Exercise,Balance Retraining,Discharge Planning, Hot or Cold Pack,Neuromuscular Re-ed,Coordination Retraining Other Recommendations and Next Treatment ambulation Focus Recommendations To Nursing Amount of Assist Needed 1 Person Assist Discharge Recommendations PT Discharge Recommendations Home with 24/ Assist,Home Health Transportation Needs at Discharge Stretcher/Ambulance
--- NOTE | 2020-03-05 12:45 | PM.PN.1 ---
Subjective Subjective Date Patient Seen: 03/05/20 Interval history: Patient continues to make significant progress with activity and mobility. However she is concerned about returning home independently without help. She requires getting up 6 stairs before she gets into her home. She has made arrangements for her sister and [id number] from [place] to come and visit. Her daughter who lives in [place] will be here temporarily to help her at home. [facility]. She is amenable to home health PT and OT as well. Patient is requested to transport home via ambulance as she is concerned that she will be unable to manage in a cabulance to transport home. She is making excellent progress. Patient reports constipation and request stool softeners to help with this. Exam Vital Signs (past 8 hours): - 03/05/20 06:00 03/05/20 08:19 03/05/20 09:00 Temperature 96.9 F L 97.4 F L Pulse Rate 70 74 81 Respiratory Rate 16 14 16 Blood Pressure 125/72 119/66 Pulse Oximetry 95 96 98 Oxygen Delivery Method Room Air Oxygen Flow Rate 0 Narrative Exam Narrative: Pleasant female in no obvious distress Lungs: Clear to auscultation Cardiac exam: Regular rate and rhythm normal S1-S2 Abdomen soft and nontender Extremities: No edema Objective Labs Result Diagrams: 03/03/20 11:55 03/03/20 11:55 Assessment & Plan Assessment & Plan narrative: Impression 1. Pelvic fracture following a ground level fall likely related to underlying osteoporosis -will continue physical therapy and occupational therapy -patient continues to make excellent progress daily -will continue current regimen including Tylenol, ibuprofen, Tylenol 3 -anticipate discharge home tomorrow 2. COPD -continue usual home medication -no shortness of breath or complaints here 3. Hyponatremia -will continue to monitor 4. Constipation -stools softners Will continue to work with physical therapy occupational therapy and PT why she is here. Will arrange for transportation at home and in-home care at discharge. Quality VTE Deep Vein Thrombosis/Pulmonary Embolism Present on Admission: No
[2020-03-05] MEDS: IBUPROFEN 600 MG TABLET PO ×2 (13:05→19:02)
[2020-03-06] MEDS: IBUPROFEN 600 MG TABLET PO ×2 (01:17→08:38)
[2020-03-06 04:33] VITALS: BP 133/77; PULSE 74; RESP 18; TEMP 36.6; O2SAT 95
[2020-03-06] MEDS: ACETAMINOPHEN 325 MG TABLET PO ×2 (06:18→12:31)
[2020-03-06] MEDS: PANTOPRAZOLE 40 MG TABLET PO (06:18)
[2020-03-06 07:40] VITALS: BP 128/70; PULSE 78; RESP 18; O2SAT 97
[2020-03-06] MEDS: MAGNESIUM HYDROXIDE 30 ML UDC PO (07:48)
[2020-03-06] MEDS: ALBUTEROL HFA 60 PUFF/8 GM INH INH (08:37)
[2020-03-06] MEDS: TIOTROPIUM BROMIDE 18 MCG INHALER INH (08:37)
[2020-03-06] MEDS: SENNOSIDES 8.6 MG TABLET 17.2 MG PO (08:38)
[2020-03-06] MEDS: DOCUSATE 250 MG CAPSULE PO (08:39)
[2020-03-06] MEDS: BISACODYL 5 MG TABLET 10 MG PO (08:43)
[2020-03-06 08:47] VITALS: PULSE 72; RESP 16; O2SAT 98
[2020-03-06 09:00] VITALS: TEMP 36.8
--- NOTE | 2020-03-06 09:01 | PM.DS.1 ---
History of Present Illness History of Present Illness Date Patient Seen: 03/06/20 Chief complaint: GLF - L hip pain Narrative: Yudith Chowdhury is a very delightful 79-year-old female who was in her usual state of health which includes COPD, when she was walking her Greyhound dog outside. Apparently the dog saw another animal and started to take off and pulled her off her feet. She fell and was then able to move after having fallen. In the emergency department she was found to have had a nondisplaced pelvic fracture extending to the sacral ala. She has a very limited medical history only having had COPD and takes supplements for medications. She is taking any prescription oral medications. She denies hitting her head, ?blacking out?, having shortness of breath, chest pain, nausea or vomiting, dysuria, diarrhea or constipation, upper or lower extremity neuropathy. In the emergency department they did an x-ray of her hip as well as a pelvis CT and noted the closed fractures. They consulted with Dr. Darby at [facility] and he recommended conservative management and mobilization/pain control for 3 days. If she is unable to improve for the next 3 days they may be able to do a surgical pinning and would want to have her transferred at that point. CT report indicated the following findings: ?1. Acute minimally displaced fracture involving lateral portion of left sacral ala near sacroiliac joint. 2. Acute minimally displaced fractures involving medial aspect of left superior pubic ramus near symphysis pubis. Nondisplaced fracture involving lateral portion of left superior pubic ramus extending to involve anterior medial aspect of left acetabulum. Minimally displaced proximal to midshaft of left inferior pubic ramus fracture. Temperature 97.6?, blood pressure 130/65, heart rate 80, respiratory rate 16, oxygen saturation 96% on room air, weight 60 kilos, BMI 21.3. WBC was 10.9, RBC 4.01, hemoglobin 12.6, hematocrit 37.7, platelet count 191, sodium 132, potassium 4.1, chloride 103, CO2 23, creatinine 0.55, BUN 15, GFR greater than 60, glucose 120, calcium 8.9. Discharge Providers Provider Date of admission: 03/03/20 17:19 Discharge Date: 03/06/20 Primary care physician: Frances Jolly MD Consults: 03/03/20 18:03 Consult to Orthopedic Surgery Urgent Comment: Consulting Provider: Morgan Haque Reason for consultation: pelvic fracture Has provider been notified: Yes Consult to Physical Therapy Evaluate & Treat Comment: per ortho / [facility] Physician Instructions: Evaluate and Treat 03/04/20 14:28 Consult to Occupational Therapy Evaluate & Treat Comment: Physician Instructions: Evaluate and treat 03/05/20 11:46 Consult to Home Health Routine Comment: Jillian has accepted the referral Reason For Exam: ZULEYKA RN/OT/PT/REVOLVING INVENTORY CLERK [place] Discharge provider: Herminia Appiah MD Summary Hospital Course Discharge Diagnosis: 1. Pelvic fracture following a ground level fall 2. Pelvic ring fracture involving the left sacral ala near the SI joint 3. Probable osteoporosis 4. COPD 5. Hyponatremia Hospital Course: Patient was admitted to the hospital following a fall and suffering a pelvic fracture. She had significant pain initially. But was able to ambulate with physical therapy and pain relief. She did have some constipation. The patient was started on bowel regimen. She continued to make significant improvement. However her mobility was somewhat limited. She had concerns regarding her ability for self-care at home. She was able to successfully arrange for in-home care from family. She is also arranging for home help with [facility]. The patient has no specific complaints at this time. She denies any shortness of breath or nausea. She is deemed appropriate for discharge and arrangements will be made for her to discharge home. Status at Discharge Cognitive/behavioral status at discharge: oriented Functional status at discharge: uses cane/walker Overall status at discharge: patient is not back to baseline Time Spent with Patient Time spent: Less than 30 minutes Exam Vital Signs (past 8 hours): - 03/06/20 04:33 03/06/20 07:40 03/06/20 08:47 Temperature 97.9 F Pulse Rate 74 78 72 Respiratory Rate 18 18 16 Blood Pressure 133/77 128/70 Pulse Oximetry 95 97 98 Oxygen Delivery Method Room Air Oxygen Flow Rate 0 Narrative Exam Narrative: Pleasant female in no obvious distress Lungs: Clear to auscultation Cardiac exam regular rate and rhythm normal S1-S2 Abdomen: Soft nontender Extremities: No edema Objective Labs Result Diagrams: 03/03/20 11:55 03/03/20 11:55 Discharge Plan Discharge Plan Discharge Problem: Closed pelvic fracture Patient Disposition: Home Health Service Transfer to: [facility] Discharge orders & Medications Prescriptions: New acetaminophen-codeine 300-30 mg Tablet 1 tab PO Q6H PRN (Reason: Pain, Moderate (4-6)) Qty: 15 RF: 0 docusate sodium 250 mg Capsule 250 mg PO BID Qty: 10 RF: 0 Continued propranolol 10 MG tablet 10 mg PO QDAY PRN (Reason: Anxiety) Qty: 0 RF: 0 olopatadine [Patanol] 5 ML drops 1 drp OPHTH DAILY Qty: 0 RF: 0 Spiriva with HandiHaler 18 MCG capsule, w/inhalation device 1 puff INH QDAY Qty: 0 RF: 0 ascorbic acid (vitamin C) 500 MG tablet 500 mg PO BID Qty: 0 RF: 0 calcium acetate(phosphat bind) 667 MG capsule 1,200 mg PO QDAY Qty: 0 RF: 0 cholecalciferol (vitamin D3) [Vitamin D3] 2,000 UNIT tablet 1 tab PO QDAY Qty: 0 RF: 0 glucosamine sulfate-msm 1 EACH capsule 1 ea PO BID Qty: 0 RF: 0 albuterol sulfate 90 mcg/actuation Hfa Aerosol Inhaler 1 inh INHALATION DAILY RF: 0 Follow up/Referrals: Frances Jolly MD [Primary Care Provider] - Diet/Activity/Treatments Diet: Low-fat and Low-sodium Activity: Per ORtho Discharge Data Primary Care Provider: Frances Jolly Attending Provider: Cheryl Merino Admit Date/Time: 03/03/20 17:19 Quality VTE Deep Vein Thrombosis/Pulmonary Embolism Present on Admission: No
--- NOTE | 2020-03-06 09:36 | PC.NURSE ---
Addendum entered by Marilu You R.N. 03/06/20 13:32: At 1300, pt OOB to BR using gait belt and walker to void X1 and had moderate soft loose BM. Discharge summary packet reviewed with pt at 1300. Pt aware to call Saturday morning to make follow up appointment with PCP. No further voiced concerns. Pt's daughter Radha brought in clothes for pt for discharge. Report given to Ambulance personnel Debbie. Pt left unit at 1330 via ambulance stretcher in no distress with all belongings. Addendum entered by Marilu You R.N. 03/06/20 11:38: Pt up to BSC, had very large formed soft BM, voided approx 100mls urine mixed with BM. Original Note: Day Shift- Pt A&OX4, able to make her needs known using call light, sitting up in recliner chair this AM at shift change. Rates 4/10 pain to lower back, buttocks, and left hip area. Already had waffle cushion under buttocks while in chair. Pt appears constant shifting slightly in chair to get more comfortable, pillows added behind her back and helped temporarily. BLE CMS+, Pt did not want any pain medications until after breakfast, agreeable to Milk of Magnesia prn at 0745. Pt states passing lots of flatus, no BM since 03/02. At 0845, scheduled Docusate, Senna, and Bisacodyl po X1 given. Will monitor, plan for prn Suppository prior to lunch time if no BM. Pt agreeable. Denies abd pain, bloating. Urinary catheter removed at 0850 without difficulty. Post removal expectations explained, pt expressed concern for movement having to void/move OOB. Explained BSC is available, and risk or infections of urinary catheters. Pt states her daughter bought a BSC for pt's home for discharge.
--- NOTE | 2020-03-06 10:33 | PT.IPTN ---
Physical Therapy Treatment Note M2 PT-IP Current Condition Start: 03/04/20 12:08 Freq: NEEDED Status: Active Protocol: Document 03/04/20 10:47 AB (Rec: 03/04/20 12:43 AB [id number]) Physical Therapy Current Condition Current Condition Evaluation Date 03/04/20 Treatment Diagnosis L pelvic fracture; difficulty in walking Onset Date 03/03/20 M3 PT-IP Subjective Start: 03/04/20 12:08 Freq: NEEDED Status: Active Protocol: Document 03/06/20 10:19 AW (Rec: 03/06/20 10:32 AW [id number]) Subjective Physical Therapy Visit Type Type Treatment Note Visit Start Time 09:48 Visit Stop Time 10:05 Total Visit Minutes 17 Number of CLINICAL TRIAL DATA MANAGER Visits 0 Physical Therapy Visit Comments Patient Comments Pt has not been resting well. She is tired but willing to participate with PT. Therapy Pain Assessment Pain When Pain Assessed During Mobility Pain Present Pain Present Pain Reported Location left pelvis Intensity 3 Scale Used Numeric (0 - 10) Pain Management Techniques Apply Cold,Re-positioning, Timing of Activity with Medications M4 PT-IP Mobility and Gait Start: 03/04/20 12:08 Freq: NEEDED Status: Active Protocol: Document 03/06/20 10:19 AW (Rec: 03/06/20 10:32 AW [id number]) PT-Bed Mobility Assessment Supine to Sit Supine to Sit Standby Assistance Sit to Supine Sit to Supine Minimal Assistance,1 Person Assistance Scooting Scooting to Edge of Bed Standby Assistance PT-Transfer Assessment Sit to and From Stand Sit to and from Stand Contact Guard Assistance,1 Person Assistance,Use of Upper Extremities Equipment Transfer Assistive Device Gait Belt,Front Wheeled Walker Orthotic/Prosthetic Devices or Brace: No Transfers Transfer Destination Bed Transfer Technique ambulated with FWW Transfer Ability Level of Assist Contact Guard Assistance,1 Person Assistance,Use of Upper Extremities Comments Mobility Comments Pt resting in bed upon PT arrival. She expressed concern about going home today but has her daughter (who participated in caregiver training yesterday) available to assist at home. Pt's daughter has secured a BSC for comfort and safety. Pt's sister is also expected to arrive from [place] to provide respite for pt's daughter as needed. Pt completed supine to sit SBA slowly and was able to sit EOB SBA. Sit to stand with bed raised 2 inches from lowest position (in order to simulate home conditions) required min A x 1. Pt was able to stand with FWW SBA and to demonstrate weight shifting with 50% WB LLE. Pt then ambulated out into the augustin and back using FWW CGA and essentially toe-touch weightbearing. Pt requested return to bed and was able to complete sit to supine with min A x 1 to lift and guide her left leg into the bed. Pt was positioned on the bed with call light and all needs in reach, bed alarm on for safety . Gait Assessment Gait Gait Assistance Required: Standby Assistance,Contact Guard Assist Distance (Feet) 50 Able to Maintain Weight Bearing Status Yes During Gait Assistive Devices Assistive Device Gait Belt,Front Wheeled Walker Gait Deviations General Gait Pattern Antalgic,Decreased Stride Length,Decreased Feet Clearance,Step-to Gait Factors Limiting Gait Function Factors Limiting Gait Function Decreased Activity Tolerance, Decreased Strength,Pain,Poor Balance Comments Gait Comments See mobility comments. Pt able to maintain 50% WB LLE. Stair Climbing Assessment Comments Stair Climbing Comments Pt will have BLS transport and will not need to navigate stairs upon arrival to home. M5 PT-IP Objective Assessments Start: 03/04/20 12:08 Freq: NEEDED Status: Active Protocol: Document 03/04/20 10:47 AB (Rec: 03/04/20 12:43 AB [id number]) Orientation Orientation/Cognition Level of Alertness Alert Orientation Name,Age,Birthday,Month,Date, Year,Day of Week,Place, Situation Language Function Ability No Deficits Noted Safety Awareness Understands Safety Issues Memory Description No Deficits Noted Gross Range of Motion Lower Extremity ROM Assessment Within Functional Limits Impairments guarded on LLE with hip flexion Strength Lower Extremity Strength Assessment Left Impaired Comments Strength Comments LLE pain limiting ROM and strength Coordination Assessment Gross Coordination Gross Coordination WNL Sensation Assessment Sensation Gross Sensation WNL Muscle Tone Muscle Tone WNL Yes M6 PT-IP Treatment Start: 03/04/20 12:08 Freq: NEEDED Status: Active Protocol: Document 03/06/20 10:19 AW (Rec: 03/06/20 10:32 AW [id number]) Physical Therapy Treatment Education Education Provided Weight Bearing Status,Safety M7 PT-IP Assessment and Plan Start: 03/04/20 12:08 Freq: NEEDED Status: Active Protocol: Document 03/06/20 10:19 AW (Rec: 03/06/20 10:32 AW [id number]) PT Summary Assessment and Plan Potential Rehabilitation Potential Good Status of Condition at Evaluation Stable Summary Impairments Pain,ROM,Strength,Balance, Coordination,Sensation,Tone, Cognition,Bed Mobility, Transfers,Gait,Activity Tolerance Progress Towards Goals Slow Progress due to Pain,Slow Progress due to Activity Tolerance Assessment Summary Pt has progressed and requires decreased level of assist this date. She plans to have BLS transport at discharge and will have her daughter providing assist at home. Daughter has been trained and is able to provide appropriate level of assist and cues. Goals Bed Mobility Goal Standby Assistance Transfer Goal Standby Assistance,Front Wheeled Walker Gait Goal Standby Assistance,Front Wheel Walker Gait Distance 100 Other Goals up/down 6 steps R rail SBA Days to Meet Goals 10 Frequency of Treatment Frequency Of Treatment Once a Day Treatment Plan Physical Therapy Treatment Plan Bed Mobility Training,Transfer Training,Gait Training, Therapeutic Exercise,Balance Retraining,Discharge Planning, Hot or Cold Pack,Neuromuscular Re-ed,Coordination Retraining Recommendations To Nursing Amount of Assist Needed 1 Person Assist Discharge Recommendations PT Discharge Recommendations Home with 18/03 Assist,Home Health Transportation Needs at Discharge Stretcher/Ambulance
[2020-03-06] MEDS: CODEINE/ACETAMINOPHEN 30/300 TABLET 1 TAB PO (12:25)
--- NOTE | 2020-03-06 13:09 | CM.DPC ---
DCP: met with pt to finalize the d/c details for her home plan. DC order is in place as per exected for today. Pt confirms she feels ready for home today with the multiple support systems that are now in place for her: Assist from daughter and sister. Visiting Judy brunson help Jillian GARDINER RN/PT/OT (d/c summary is faxed now to the agency and vm left re the d/c today) Ambulance: set up now for 1330 (financial issues re this were discussed yesterday with pt, see those notes fro details) (PT confirms pt making some slow progress each day but pt chose not to even attempt stairs as she does not want to injure herself further trying that at home) Pt expressed thankfulness for the whole team involved in her care at the hospital.
== END 2020-03-06 13:30 | disposition home health service (06) ==
LOC: ED 17:17 → AC 03-04 06:47
PROVIDERS: Admitting Provider Internal Medicine; Emergency Provider Emergency Medicine; Family Provider Internal Medicine; PCP Internal Medicine; Referring Provider Emergency Medicine; Visit Provider Internal Medicine
DX: S32.9XXA Fracture of unspecified parts of lumbosacral spine and pelvis, initial encounter for closed fracture (principal); W01.0XXA Fall on same level from slipping, tripping and stumbling without subsequent striking against object, initial encounter; Y93.K1 Activity, walking an animal; M54.16 Radiculopathy, lumbar region; E78.5 Hyperlipidemia, unspecified; J44.9 Chronic obstructive pulmonary disease, unspecified; E87.1 Hypo-osmolality and hyponatremia; Z11.59 Encounter for screening for other viral diseases
CPT/HCPCS: 36415; 72192; 73502; 80048; 85025; 85610; 94640; 96361; 96374; 96375; 96376; 97116; 97162; 97165; 97530; 97535; 99284; G0378; J2270; J2405

== ENCOUNTER → 2020-06-14 09:37 | Outpatient (CLI) | payer MEDICARE, OTHER, SELFPAY | PROVIDERS: Family Provider Internal Medicine; PCP Internal Medicine; Referring Provider Orthopaedic Surgery; Visit Provider Orthopaedic Surgery | DX: M81.0 Age-related osteoporosis without current pathological fracture (principal); Z78.0 Asymptomatic menopausal state; S32.810D Multiple fractures of pelvis with stable disruption of pelvic ring, subsequent encounter for fracture with routine healing; Z87.891 Personal history of nicotine dependence | CPT/HCPCS: 77080 ==

== ENCOUNTER 2021-09-18 10:30 | Outpatient (RCR) | payer MEDICARE, OTHER, SELFPAY ==
--- NOTE | 2021-07-26 16:43 | PT.OIE ---
Current Diagnoses Unspecified temporomandibular joint disorder, unspecified side (07/26/21) Cervicalgia (07/26/21) Myalgia of mastication muscle (07/26/21) Abnormal posture (07/26/21) Weakness (07/26/21) Visit Care Team Role Provider Type Tierney Nation PA-C Family Provider Non-Staff Primary Care Provider Specialty: Internal Medicine Address: [address] [place] [address] Email: [email or web address] [place] Mccray MD Attending Provider Physician Referring Provider Specialty: Ear, Nose, Throat Address: [address] [place] [address], [id number] Email: [email or web address] Physical Therapy Initial Evaluation PT-OP-A Visit Information Start: 07/25/21 18:05 Freq: Status: Active Protocol: Document 07/26/21 13:49 [facility] (Rec: 07/26/21 14:35 [facility] [id number]) Out-Patient Physical Therapy Visit Information Visit Information Visit Type Initial Evaluation Visit Note 09/04 Visit Start Time 13:49 Visit Stop Time 14:35 Total Visit Minutes 46 Visit Number 1 Number of WELDING PROCESS SPECIALIST Visits 0 PT-OP-B Current Condition Start: 07/25/21 18:05 Freq: Status: Active Protocol: Document 07/26/21 13:49 [facility] (Rec: 07/26/21 14:35 [facility] [id number]) Current Condition History of Current Condition Onset Date >1 year ago Current Complaints L TMJ History of Current Condition Pt reports for over a year the jaw started giving her some issues and she got to the point where she couldn't open her mouth all the way and couldn't eat crunchy foods. It got worse over time. Dentist told her to use warm moist heat and stretch by opening her mouth and moving it side ot side. She is now reporting that she is much better. Pt reports she has gotten back to eating breads w/tough crust but does it carefully. She can no longer take a bite of an apple or carrots so has to cut apples or cook carrots. Pt reports L jaw still sore but can open her mouth a lot wider than she could a month ago. Pt reports sam has a stiff neck but no typical pain. She has osteopenia and takes calcium and does yoga and tries to walk daily. Denies ringing in her ears or any hearing changes. She gets HAs and reports she has sinus issues. She gets NAVARRETE infrequently now (once a month or less). NAVARRETE at forehead when she gets them. Reports she tends to have back problems and has seen a chiropractor for that but not her neck. Pt was a little under the weather over the weekend and was yawning a lot and sam thinks that may be why her jaw feels better. Pt reports she is a very light sleeper and she doesn't clench. Notes she can' t sleep on her back d/t coughing. She takes tylenol w/ codine which helps the cough. She does feel rested when sam wakes up. Denies any lightheadness or dizziness Treatment Goals Patient/Caregiver Goals L jaw soreness to go away, be able to not have to worry about eating crusty bread at least. PT-OP-C Subjective Start: 07/25/21 18:05 Freq: Status: Active Protocol: Document 07/26/21 13:49 [facility] (Rec: 07/26/21 14:35 [facility] [id number]) OP-PT Pain Assessment Location jaw Pain Location Details L TMJ Intensity 4 Scale Used Numeric (0 - 10) Description Aching Description- Other like a toothache; constant knowledge that it's there Frequency Constant Pain Duration a few sec after quit eating Pain Aggravating Factors Chewing Other Pain Aggravating Factors yawing Pain Alleviating Factors Heat PT-OP-F Manual Assessment Start: 07/25/21 18:05 Freq: Status: Active Protocol: Document 07/26/21 13:49 [facility] (Rec: 07/26/21 16:19 [facility] [id number]) Manual Assessments Soft Tissue Assessment Soft Tissue Mobility Assessment tightness L>R masseter, temporalis, med ptyerygoid, along inf and post jaw, R >L tightness lat ptyergoid Joint Mobility Assessment Joint Mobility Assessment post shear of R side w/closing , ant shear B w/opening and deviation to L PT-OP-J Posture/Palpation/Skin Start: 07/25/21 18:05 Freq: Status: Active Protocol: Document 07/26/21 13:49 [facility] (Rec: 07/26/21 16:20 [facility] [id number]) Posture Evaluation Comments Posture Comments significant kyphosis w/fwd head and upper cervical ext w/ slight R lat SB. PT-OP-K Range of Motion Start: 07/25/21 18:05 Freq: Status: Active Protocol: Document 07/26/21 13:49 [facility] (Rec: 07/26/21 14:35 [facility] [id number]) Cervical Spine Range of Motion Cervical Spine Active Degrees Flexion 24 Extension 33 Rotation Left 32 Rotation Right 35 Lateral Flexion Left 5 Lateral Flexion Right 3 Comments can feel it in her jaw when turning L TMJ Range of Motion Jaw Openning Jaw Openning (mm) 32 PT-OP-Q Treatments Start: 07/25/21 18:05 Freq: Status: Active Protocol: Document 07/26/21 13:49 [facility] (Rec: 07/26/21 16:19 [facility] [id number]) Therapeutic Exercises Sitting Exercises jaw opening Sitting Exercise Name w/tongue on rougi Reps/Minutes 10 Comments cues for slow movement & comfortable range Self-Care/Home Management Treatment Education Other Education edu of importance of posture for jaw movement and pain and edu re: cervical and jaw alignment connection and anatomy and why cervical mobility is important for jaw mobility PT-OP-T Assessment and Plan Start: 07/25/21 18:05 Freq: Status: Active Protocol: Document 07/26/21 13:49 [facility] (Rec: 07/26/21 14:35 [facility] [id number]) Physical Therapy Assessment Rehab Potential Rehabilitation Potential Good Evaluation Complexity Number of Personal Factors/Comorbidities 3 or More Number of Body Systems Impaired 4 or More Clinical Presentation at Evaluation Stable Impairments Impairments Activity Tolerance,Functional Activities,Pain,Posture,ROM, Soft Tissue Mobility,Strength Goals eating Truck Cleaner Goal (LTG) Pt will be able to eat all breads w/o issue and will be able to eat foods without feeling concerned re: inc pain . LTG Duration 09/26/21 jaw Short Term Goal (STG) Pt will impove jaw opening to at least 38 mm to show improved ROM. STG Duration 08/26/21 Fpc Goal (LTG) Pt will improve jaw opening to 45 mm without lat deviation in order to allow pt to eat as she would like. LTG Duration 09/26/21 cervical Short Term Goal (STG) Pt will improve cervical rotation 10 deg B to improve ability to look when driving. STG Duration 08/26/21 Truck Cleaner Goal (LTG) Pt will improve cervical rotation 2 deg B to improve ability to look when driving and have no pain in jaw w/ rotation LTG Duration 09/26/21 Assessment Summary Assessment Pt presents w/L TMJ pain that started over a year ago with no resolution until some improvement recently, after pt was sick and couldn't sleep and yawned a lot. She believes all the yawning stretched her jaw and possibly made it her range better. She still has L jaw pain and is limited in ability to open fully and has to be careful when eating crunchy foods or cut them to smaller pieces. She would benefit from PT to work on jaw motion and cervical ROM and posture in order to dec jaw pain and improve functional ability including ability to eat and to turn head w/driving . There is a clear cervical involvement as when pt turns L , she had inc in jaw pain in L TMJ. Physical Therapy Plan Frequency and Duration Frequency of Treatment 1-2x/week Duration of Treatment 2 months Plan of Care Start Date 07/26/21 Plan of Care End Date 09/26/21 Therapeutic Interventions Therapeutic Interventions Home Exercise Program,Joint Mobilizations,Manual Therapy, Neuromuscular Re-education, Patient/Caregiver Education, Self-Care/Home Management,Soft Tissue Mobilization,Taping, Therapeutic Activities, Therapeutic Exercises Modalities Cold Pack/Ice Massage,Electric Stimulation,Hot Packs, Ultrasound Next Visit Focus/Plan Next Note Type Treatment Note Next Visit Plan rocabado 6x6, wall posture, STM to external jaw mm & work on cervical mm soft tissue for improved mobility
--- NOTE | 2021-07-26 17:15 | PT.OPPOC ---
Physical, Occupational & Speech Therapy At [facility] Current Diagnoses Unspecified temporomandibular joint disorder, unspecified side (07/26/21) Cervicalgia (07/26/21) Myalgia of mastication muscle (07/26/21) Abnormal posture (07/26/21) Weakness (07/26/21) Visit Care Team Role Provider Type Tierney Nation PA-C Family Provider Non-Staff Primary Care Provider Specialty: Internal Medicine Address: [address] [place] [address] Email: [email or web address] [place] Mccray MD Attending Provider Physician Referring Provider Specialty: Ear, Nose, Throat Address: [address] [place] [address] Email: [email or web address] Plan Of Care PT-OP-T Assessment and Plan Start: 07/25/21 18:05 Freq: Status: Active Protocol: Document 07/26/21 13:49 [facility] (Rec: 07/26/21 14:35 [facility] [id number]) Physical Therapy Assessment Rehab Potential Rehabilitation Potential Good Evaluation Complexity Number of Personal Factors/Comorbidities 3 or More Number of Body Systems Impaired 4 or More Clinical Presentation at Evaluation Stable Impairments Impairments Activity Tolerance,Functional Activities,Pain,Posture,ROM, Soft Tissue Mobility,Strength Goals eating Half-Way Goal (LTG) Pt will be able to eat all breads w/o issue and will be able to eat foods without feeling concerned re: inc pain . LTG Duration 09/26/21 jaw Short Term Goal (STG) Pt will impove jaw opening to at least 38 mm to show improved ROM. STG Duration 08/26/21 Half-Way Goal (LTG) Pt will improve jaw opening to 45 mm without lat deviation in order to allow pt to eat as she would like. LTG Duration 09/26/21 cervical Short Term Goal (STG) Pt will improve cervical rotation 10 deg B to improve ability to look when driving. STG Duration 08/26/21 Aging Department Supervisor Goal (LTG) Pt will improve cervical rotation 2 deg B to improve ability to look when driving and have no pain in jaw w/ rotation LTG Duration 09/26/21 Assessment Summary Assessment Pt presents w/L TMJ pain that started over a year ago with no resolution until some improvement recently, after pt was sick and couldn't sleep and yawned a lot. She believes all the yawning stretched her jaw and possibly made it her range better. She still has L jaw pain and is limited in ability to open fully and has to be careful when eating crunchy foods or cut them to smaller pieces. She would benefit from PT to work on jaw motion and cervical ROM and posture in order to dec jaw pain and improve functional ability including ability to eat and to turn head w/driving . There is a clear cervical involvement as when pt turns L , she had inc in jaw pain in L TMJ. Physical Therapy Plan Frequency and Duration Frequency of Treatment 1-2x/week Duration of Treatment 2 months Plan of Care Start Date 07/26/21 Plan of Care End Date 09/26/21 Therapeutic Interventions Therapeutic Interventions Home Exercise Program,Joint Mobilizations,Manual Therapy, Neuromuscular Re-education, Patient/Caregiver Education, Self-Care/Home Management,Soft Tissue Mobilization,Taping, Therapeutic Activities, Therapeutic Exercises Modalities Cold Pack/Ice Massage,Electric Stimulation,Hot Packs, Ultrasound Next Visit Focus/Plan Next Note Type Treatment Note Next Visit Plan rocabado 6x6, wall posture, STM to external jaw mm & work on cervical mm soft tissue for improved mobility Plan of Care Dates Plan of Care Start Date 07/26/21 Plan of Care End Date 09/26/21 Electronically Signed by: Erendira Mccray, PT 07/26/21 1965 Please Sign and Return: I have reviewed this Plan of Care and certify that the skilled therapy services above are required to meet the patient?s needs. Physician Signature Date Printed Name and Credentials Clinical Instructor Signature Printed Name and Credentials
--- NOTE | 2021-07-31 18:28 | PT.OTN ---
Current Diagnoses Unspecified temporomandibular joint disorder, unspecified side (07/31/21) Cervicalgia (07/31/21) Myalgia of mastication muscle (07/31/21) Abnormal posture (07/31/21) Weakness (07/31/21) Physical Therapy Treatment Note PT-OP-A Visit Information Start: 07/25/21 18:05 Freq: Status: Active Protocol: Document 07/31/21 18:05 [facility] (Rec: 07/31/21 18:28 [facility] [id number]) Out-Patient Physical Therapy Visit Information Visit Information Visit Type Treatment Note Visit Note 10/05 Visit Start Time 16:52 Visit Stop Time 17:33 Total Visit Minutes 41 Visit Number 2 Number of SERVOMECHANISM DESIGNER Visits 0 PT-OP-B Current Condition Start: 07/25/21 18:05 Freq: Status: Active Protocol: Document 07/26/21 13:49 [facility] (Rec: 07/26/21 14:35 [facility] [id number]) Current Condition History of Current Condition Onset Date >1 year ago Current Complaints L TMJ History of Current Condition Pt reports for over a year the jaw started giving her some issues and she got to the point where she couldn't open her mouth all the way and couldn't eat crunchy foods. It got worse over time. Dentist told her to use warm moist heat and stretch by opening her mouth and moving it side ot side. She is now reporting that she is much better. Pt reports she has gotten back to eating breads w/tough crust but does it carefully. She can no longer take a bite of an apple or carrots so has to cut apples or cook carrots. Pt reports L jaw still sore but can open her mouth a lot wider than she could a month ago. Pt reports sam has a stiff neck but no typical pain. She has osteopenia and takes calcium and does yoga and tries to walk daily. Denies ringing in her ears or any hearing changes. She gets HAs and reports she has sinus issues. She gets NAVARRETE infrequently now (once a month or less). NAVARRETE at forehead when she gets them. Reports she tends to have back problems and has seen a chiropractor for that but not her neck. Pt was a little under the weather over the weekend and was yawning a lot and sam thinks that may be why her jaw feels better. Pt reports she is a very light sleeper and she doesn't clench. Notes she can' t sleep on her back d/t coughing. She takes tylenol w/ codine which helps the cough. She does feel rested when seh wakes up. Denies any lightheadness or dizziness Treatment Goals Patient/Caregiver Goals L jaw soreness to go away, be able to not have to worry about eating crusty bread at least. PT-OP-C Subjective Start: 07/25/21 18:05 Freq: Status: Active Protocol: Document 07/31/21 18:05 [facility] (Rec: 07/31/21 18:28 [facility] [id number]) OP-PT Subjective Patient Comments Patient Comments Pt reports doing exercise PT-OP-F Manual Assessment Start: 07/25/21 18:05 Freq: Status: Active Protocol: Document 07/26/21 13:49 [facility] (Rec: 07/26/21 16:19 [facility] [id number]) Manual Assessments Soft Tissue Assessment Soft Tissue Mobility Assessment tightness L>R masseter, temporalis, med ptyerygoid, along inf and post jaw, R >L tightness lat ptyergoid Joint Mobility Assessment Joint Mobility Assessment post shear of R side w/closing , ant shear B w/opening and deviation to L PT-OP-J Posture/Palpation/Skin Start: 07/25/21 18:05 Freq: Status: Active Protocol: Document 07/26/21 13:49 [facility] (Rec: 07/26/21 16:20 [facility] [id number]) Posture Evaluation Comments Posture Comments significant kyphosis w/fwd head and upper cervical ext w/ slight R lat SB. PT-OP-K Range of Motion Start: 07/25/21 18:05 Freq: Status: Active Protocol: Document 07/26/21 13:49 [facility] (Rec: 07/26/21 14:35 [facility] [id number]) Cervical Spine Range of Motion Cervical Spine Active Degrees Flexion 24 Extension 33 Rotation Left 32 Rotation Right 35 Lateral Flexion Left 5 Lateral Flexion Right 3 Comments can feel it in her jaw when turning L TMJ Range of Motion Jaw Openning Jaw Openning (mm) 32 PT-OP-Q Treatments Start: 07/25/21 18:05 Freq: Status: Active Protocol: Document 07/31/21 18:05 [facility] (Rec: 07/31/21 18:28 [facility] [id number]) Therapeutic Exercises Supine Exercises diaphragmatic breathing Reps/Minutes 6 Sitting Exercises rocabado Sitting Exercise Name 6x6 Comments as per handout Manual Therapy Treatment Soft Tissue Mobilization cervical Body Location SOR, SCM Mobilization Type Rolling,Sustained Pressure Intensity/Depth Moderate Body Position Hooklying jaw Body Location external L>R Mobilization Type Rolling,Strumming,Sustained Pressure Intensity/Depth Moderate Body Position Hooklying Comments masseter, temporalis, med ptyergoid, along inf angle of jaw border Self-Care/Home Management Treatment Education Other Education further edu re: need for breathing training and necka nd posture training PT-OP-T Assessment and Plan Start: 07/25/21 18:05 Freq: Status: Active Protocol: Document 07/31/21 18:05 [facility] (Rec: 07/31/21 18:28 [facility] [id number]) Physical Therapy Assessment Goals eating [facility] Goal (LTG) Pt will be able to eat all breads w/o issue and will be able to eat foods without feeling concerned re: inc pain . LTG Duration 09/26/21 jaw Short Term Goal (STG) Pt will impove jaw opening to at least 38 mm to show improved ROM. STG Duration 08/26/21 Tubing Tester Goal (LTG) Pt will improve jaw opening to 45 mm without lat deviation in order to allow pt to eat as she would like. LTG Duration 09/26/21 cervical Short Term Goal (STG) Pt will improve cervical rotation 10 deg B to improve ability to look when driving. STG Duration 08/26/21 Tubing Tester Goal (LTG) Pt will improve cervical rotation 2 deg B to improve ability to look when driving and have no pain in jaw w/ rotation LTG Duration 09/26/21 Assessment Summary Assessment Pt tolerated all exercises w/o c/o inc pain. She had difficulty w/diaphramatic breathing in sitting so did in laying down and pt did well and was able to perform easily . Encouraged to do that at least 3x/day since she will be doing laying down instead. She had significant tightness around jaw w/some improvement in soft tissue mobility w/ manual treatment. Pt did note temporalis STM was right where she gets her HAs Physical Therapy Plan Frequency and Duration Frequency of Treatment 1-2x/week Duration of Treatment 2 months Plan of Care Start Date 07/26/21 Plan of Care End Date 09/26/21 Next Visit Focus/Plan Next Note Type Treatment Note Next Visit Plan review exercises, add wall posture, try to facilitate diaphragmatic breating in sitting, cont tow ork on cervical & jaw mm and soft tissue and joints (gentle joint mobs as pt has osteopenia)
--- NOTE | 2021-08-02 16:35 | PT.OTN ---
Current Diagnoses Unspecified temporomandibular joint disorder, unspecified side (08/02/21) Cervicalgia (08/02/21) Myalgia of mastication muscle (08/02/21) Abnormal posture (08/02/21) Weakness (08/02/21) Physical Therapy Treatment Note PT-OP-A Visit Information Start: 07/25/21 18:05 Freq: Status: Active Protocol: Document 08/02/21 13:01 [facility] (Rec: 08/02/21 16:34 [facility] [id number]) Out-Patient Physical Therapy Visit Information Visit Information Visit Type Treatment Note Visit Note 11/02 Visit Start Time 13:00 Visit Stop Time 13:42 Total Visit Minutes 42 Visit Number 3 Number of NURSING SCHEDULER Visits 0 PT-OP-B Current Condition Start: 07/25/21 18:05 Freq: Status: Active Protocol: Document 07/26/21 13:49 [facility] (Rec: 07/26/21 14:35 [facility] [id number]) Current Condition History of Current Condition Onset Date >1 year ago Current Complaints L TMJ History of Current Condition Pt reports for over a year the jaw started giving her some issues and she got to the point where she couldn't open her mouth all the way and couldn't eat crunchy foods. It got worse over time. Dentist told her to use warm moist heat and stretch by opening her mouth and moving it side ot side. She is now reporting that she is much better. Pt reports she has gotten back to eating breads w/tough crust but does it carefully. She can no longer take a bite of an apple or carrots so has to cut apples or cook carrots. Pt reports L jaw still sore but can open her mouth a lot wider than she could a month ago. Pt reports sam has a stiff neck but no typical pain. She has osteopenia and takes calcium and does yoga and tries to walk daily. Denies ringing in her ears or any hearing changes. She gets HAs and reports she has sinus issues. She gets NAVARRETE infrequently now (once a month or less). NAVARRETE at forehead when she gets them. Reports she tends to have back problems and has seen a chiropractor for that but not her neck. Pt was a little under the weather over the weekend and was yawning a lot and sam thinks that may be why her jaw feels better. Pt reports she is a very light sleeper and she doesn't clench. Notes she can' t sleep on her back d/t coughing. She takes tylenol w/ codine which helps the cough. She does feel rested when seh wakes up. Denies any lightheadness or dizziness Treatment Goals Patient/Caregiver Goals L jaw soreness to go away, be able to not have to worry about eating crusty bread at least. PT-OP-C Subjective Start: 07/25/21 18:05 Freq: Status: Active Protocol: Document 08/02/21 13:01 [facility] (Rec: 08/02/21 16:34 [facility] [id number]) OP-PT Subjective Patient Comments Patient Comments Pt reports compliance w/HEP. Notes was sore the evening after her last session. PT-OP-F Manual Assessment Start: 07/25/21 18:05 Freq: Status: Active Protocol: Document 07/26/21 13:49 [facility] (Rec: 07/26/21 16:19 [facility] [id number]) Manual Assessments Soft Tissue Assessment Soft Tissue Mobility Assessment tightness L>R masseter, temporalis, med ptyerygoid, along inf and post jaw, R >L tightness lat ptyergoid Joint Mobility Assessment Joint Mobility Assessment post shear of R side w/closing , ant shear B w/opening and deviation to L PT-OP-J Posture/Palpation/Skin Start: 07/25/21 18:05 Freq: Status: Active Protocol: Document 07/26/21 13:49 [facility] (Rec: 07/26/21 16:20 [facility] [id number]) Posture Evaluation Comments Posture Comments significant kyphosis w/fwd head and upper cervical ext w/ slight R lat SB. PT-OP-K Range of Motion Start: 07/25/21 18:05 Freq: Status: Active Protocol: Document 07/26/21 13:49 [facility] (Rec: 07/26/21 14:35 [facility] [id number]) Cervical Spine Range of Motion Cervical Spine Active Degrees Flexion 24 Extension 33 Rotation Left 32 Rotation Right 35 Lateral Flexion Left 5 Lateral Flexion Right 3 Comments can feel it in her jaw when turning L TMJ Range of Motion Jaw Openning Jaw Openning (mm) 32 PT-OP-Q Treatments Start: 07/25/21 18:05 Freq: Status: Active Protocol: Document 08/02/21 13:01 [facility] (Rec: 08/02/21 16:34 [facility] [id number]) Therapeutic Exercises Sitting Exercises rocabado Sitting Exercise Name 6x6 Reps/Minutes 6 reps Comments as per handout Standing Exercises wall roll up Standing Exercise Name w/B shoulder ext (head off wall) Side bilateral Reps/Minutes 1 min x2 Comments a couple reps to work on getting LB on wall also Manual Therapy Treatment Soft Tissue Mobilization intraoral Body Location R lat ptyergoid Mobilization Type Sustained Pressure Intensity/Depth Moderate cervical Body Location SOR, SCM & scalnes Mobilization Type Rolling,Sustained Pressure Intensity/Depth Moderate Body Position Hooklying Comments w/PROM cervical rotation jaw Body Location external L>R Mobilization Type Rolling,Strumming,Sustained Pressure Intensity/Depth Moderate Body Position Hooklying Comments masseter, temporalis, med ptyergoid, along inf angle of jaw border Joint Mobilizations jaw Joint distraction Grade II Comments very gentle w/mobs PT-OP-T Assessment and Plan Start: 07/25/21 18:05 Freq: Status: Active Protocol: Document 08/02/21 13:01 [facility] (Rec: 08/02/21 16:34 [facility] [id number]) Physical Therapy Assessment Goals eating Senior Living Goal (LTG) Pt will be able to eat all breads w/o issue and will be able to eat foods without feeling concerned re: inc pain . LTG Duration 09/26/21 jaw Short Term Goal (STG) Pt will impove jaw opening to at least 38 mm to show improved ROM. STG Duration 08/26/21 Registered Safety Engineer Goal (LTG) Pt will improve jaw opening to 45 mm without lat deviation in order to allow pt to eat as she would like. LTG Duration 09/26/21 cervical Short Term Goal (STG) Pt will improve cervical rotation 10 deg B to improve ability to look when driving. STG Duration 08/26/21 Registered Safety Engineer Goal (LTG) Pt will improve cervical rotation 2 deg B to improve ability to look when driving and have no pain in jaw w/ rotation LTG Duration 09/26/21 Assessment Summary Assessment Pt did well with exercises and did not require cuieng w/ rocabado exercises today except a cue for use of hand to give pressure to encourage diaphragmatic breath. She had improved cervical rotation L after manual treatment. Physical Therapy Plan Frequency and Duration Frequency of Treatment 1-2x/week Duration of Treatment 2 months Plan of Care Start Date 07/26/21 Plan of Care End Date 09/26/21 Next Visit Focus/Plan Next Note Type Treatment Note Next Visit Plan review wall posture & seated diaphragmatic breathing, cont to work on cervical and jaw mobility
--- NOTE | 2021-08-08 15:06 | PT.OTN ---
Current Diagnoses Unspecified temporomandibular joint disorder, unspecified side (08/14/21) Cervicalgia (08/14/21) Myalgia of mastication muscle (08/14/21) Abnormal posture (08/14/21) Weakness (08/14/21) Physical Therapy Treatment Note PT-OP-A Visit Information Start: 07/25/21 18:05 Freq: Status: Active Protocol: Document 08/14/21 14:55 [facility] (Rec: 08/14/21 15:06 [facility] [id number]) Out-Patient Physical Therapy Visit Information Visit Information Visit Type Treatment Note Visit Note 02/02 Visit Start Time 10:35 Visit Stop Time 11:15 Total Visit Minutes 40 Visit Number 6 Number of HOT STRIP FINISHER Visits 0 PT-OP-B Current Condition Start: 07/25/21 18:05 Freq: Status: Active Protocol: Document 07/26/21 13:49 [facility] (Rec: 07/26/21 14:35 [facility] [id number]) Current Condition History of Current Condition Onset Date >1 year ago Current Complaints L TMJ History of Current Condition Pt reports for over a year the jaw started giving her some issues and she got to the point where she couldn't open her mouth all the way and couldn't eat crunchy foods. It got worse over time. Dentist told her to use warm moist heat and stretch by opening her mouth and moving it side ot side. She is now reporting that she is much better. Pt reports she has gotten back to eating breads w/tough crust but does it carefully. She can no longer take a bite of an apple or carrots so has to cut apples or cook carrots. Pt reports L jaw still sore but can open her mouth a lot wider than she could a month ago. Pt reports sam has a stiff neck but no typical pain. She has osteopenia and takes calcium and does yoga and tries to walk daily. Denies ringing in her ears or any hearing changes. She gets HAs and reports she has sinus issues. She gets NAVARRETE infrequently now (once a month or less). NAVARRETE at forehead when she gets them. Reports she tends to have back problems and has seen a chiropractor for that but not her neck. Pt was a little under the weather over the weekend and was yawning a lot and sam thinks that may be why her jaw feels better. Pt reports she is a very light sleeper and she doesn't clench. Notes she can' t sleep on her back d/t coughing. She takes tylenol w/ codine which helps the cough. She does feel rested when seh wakes up. Denies any lightheadness or dizziness Treatment Goals Patient/Caregiver Goals L jaw soreness to go away, be able to not have to worry about eating crusty bread at least. PT-OP-C Subjective Start: 07/25/21 18:05 Freq: Status: Active Protocol: Document 08/14/21 14:55 [facility] (Rec: 08/14/21 15:06 [facility] [id number]) OP-PT Subjective Patient Comments Patient Comments Pt reports compliance w/ exercises PT-OP-F Manual Assessment Start: 07/25/21 18:05 Freq: Status: Active Protocol: Document 07/26/21 13:49 [facility] (Rec: 07/26/21 16:19 [facility] [id number]) Manual Assessments Soft Tissue Assessment Soft Tissue Mobility Assessment tightness L>R masseter, temporalis, med ptyerygoid, along inf and post jaw, R >L tightness lat ptyergoid Joint Mobility Assessment Joint Mobility Assessment post shear of R side w/closing , ant shear B w/opening and deviation to L PT-OP-J Posture/Palpation/Skin Start: 07/25/21 18:05 Freq: Status: Active Protocol: Document 07/26/21 13:49 [facility] (Rec: 07/26/21 16:20 [facility] [id number]) Posture Evaluation Comments Posture Comments significant kyphosis w/fwd head and upper cervical ext w/ slight R lat SB. PT-OP-K Range of Motion Start: 07/25/21 18:05 Freq: Status: Active Protocol: Document 07/26/21 13:49 [facility] (Rec: 07/26/21 14:35 [facility] [id number]) Cervical Spine Range of Motion Cervical Spine Active Degrees Flexion 24 Extension 33 Rotation Left 32 Rotation Right 35 Lateral Flexion Left 5 Lateral Flexion Right 3 Comments can feel it in her jaw when turning L TMJ Range of Motion Jaw Openning Jaw Openning (mm) 32 PT-OP-Q Treatments Start: 07/25/21 18:05 Freq: Status: Active Protocol: Document 08/14/21 14:55 [facility] (Rec: 08/14/21 15:06 [facility] [id number]) Therapeutic Exercises Sitting Exercises rocabado Sitting Exercise Name 6x6 Reps/Minutes 6 reps Comments as per handout Standing Exercises wall roll up Standing Exercise Name w/B shoulder ext (head off wall) Side bilateral Reps/Minutes 1 min x2 Comments a couple reps to work on getting LB on wall also Manual Therapy Treatment Soft Tissue Mobilization intraoral Body Location R lat ptyergoid Mobilization Type Sustained Pressure Intensity/Depth Moderate cervical Body Location SOR, SCM & scalnes Mobilization Type Rolling,Sustained Pressure Intensity/Depth Moderate Body Position Hooklying Comments w/PROM cervical rotation jaw Body Location external L>R Mobilization Type Rolling,Strumming,Sustained Pressure Intensity/Depth Moderate Body Position Hooklying Comments masseter, temporalis, med ptyergoid, along inf angle of jaw border Joint Mobilizations jaw Joint distraction Grade II Comments very gentle w/mobs PT-OP-T Assessment and Plan Start: 07/25/21 18:05 Freq: Status: Active Protocol: Document 08/14/21 14:55 [facility] (Rec: 08/14/21 15:06 [facility] [id number]) Physical Therapy Assessment Goals eating Construction Coordinator Goal (LTG) Pt will be able to eat all breads w/o issue and will be able to eat foods without feeling concerned re: inc pain . 08/14/21: (progresing) not having pain with crusty breads . LTG Duration 09/26/21 jaw Short Term Goal (STG) Pt will impove jaw opening to at least 38 mm to show improved ROM. STG Duration 08/26/21 Construction Coordinator Goal (LTG) Pt will improve jaw opening to 45 mm without lat deviation in order to allow pt to eat as she would like. LTG Duration 09/26/21 cervical Short Term Goal (STG) Pt will improve cervical rotation 10 deg B to improve ability to look when driving. STG Duration 08/26/21 Nursing Home Goal (LTG) Pt will improve cervical rotation 2 deg B to improve ability to look when driving and have no pain in jaw w/ rotation LTG Duration 09/26/21 Assessment Summary Assessment Pt did well w/rocabado exercises and was able to demo w/o requiring any cues. She has signficant jaw tightness taht limits her ability to open. Physical Therapy Plan Frequency and Duration Frequency of Treatment 1-2x/week Duration of Treatment 2 months Plan of Care Start Date 07/26/21 Plan of Care End Date 09/26/21 Next Visit Focus/Plan Next Note Type Treatment Note Next Visit Plan cont to work on jaw mobility& progression of ability to do jaw opening w/o cspine ext
--- NOTE | 2021-08-11 11:20 | PT.OTN ---
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 It got worse over time. Dentist told her to use warm moist heat and stretch by opening her mouth and moving it side ot side. She is now reporting that she is much better. Pt reports she has gotten back to eating breads w/tough crust but does it carefully. She can no longer take a bite of an apple or carrots so has to cut apples or cook carrots. Pt reports L jaw still sore but can open her mouth a lot wider than she could a month ago. Pt reports selevar has a stiff neck but no typical pain. She has osteopenia and takes calcium and does yoga and tries to walk daily. Denies ringing in her ears or any hearing changes. She gets HAs and reports she has sinus issues. She gets NAVARRETE infrequently now (once a month or less). NAVARRETE at forehead when she gets them. Reports she tends to have back problems and has seen a chiropractor for that but not her neck. Pt was a little under the weather over the weekend and was yawning a lot and sam thinks that may be why her jaw feels better. Pt reports she is a very light sleeper and she doesn't clench. Notes she can' t sleep on her back d/t coughing. She takes tylenol w/ codine which helps the cough. She does feel rested when se wakes up. Denies any lightheadness or dizziness Treatment Goals Patient/Caregiver Goals L jaw soreness to go away, be able to not have to worry about eating crusty bread at least. PT-OP-C Subjective Start: 07/25/21 18:05 Freq: Status: Active Protocol: Document 08/11/21 10:36 SP (Rec: 08/11/21 12:48 SP [id number]) OP-PT Subjective Patient Comments Patient Comments Pt states stated her L jaw still hurting, being able to eat few more foods but not identifying specific items when asked more details. Pt inquires why working on posture when it's her jaw that hurts. PT-OP-F Manual Assessment Start: 07/25/21 18:05 Freq: Status: Active Protocol: Document 07/26/21 13:49 [facility] (Rec: 07/26/21 16:19 [facility] [id number]) Manual Assessments Soft Tissue Assessment Soft Tissue Mobility Assessment tightness L>R masseter, temporalis, med ptyerygoid, along inf and post jaw, R >L tightness lat ptyergoid Joint Mobility Assessment Joint Mobility Assessment post shear of R side w/closing , ant shear B w/opening and deviation to L PT-OP-J Posture/Palpation/Skin Start: 07/25/21 18:05 Freq: Status: Active Protocol: Document 07/26/21 13:49 [facility] (Rec: 07/26/21 16:20 [facility] [id number]) Posture Evaluation Comments Posture Comments significant kyphosis w/fwd head and upper cervical ext w/ slight R lat SB. PT-OP-K Range of Motion Start: 07/25/21 18:05 Freq: Status: Active Protocol: Document 07/26/21 13:49 [facility] (Rec: 07/26/21 14:35 [facility] [id number]) Cervical Spine Range of Motion Cervical Spine Active Degrees Flexion 24 Extension 33 Rotation Left 32 Rotation Right 35 Lateral Flexion Left 5 Lateral Flexion Right 3 Comments can feel it in her jaw when turning L TMJ Range of Motion Jaw Openning Jaw Openning (mm) 32 PT-OP-Q Treatments Start: 07/25/21 18:05 Freq: Status: Active Protocol: Document 08/11/21 10:36 SP (Rec: 08/11/21 12:48 SP [id number]) Therapeutic Exercises Supine Exercises CS ext neutral Supine Exercise Name neutral chin nod positioning supine>at wall carryover Equipment Used supine> toward wall towel behind head Reps/Minutes 5 sec hold x5 Comments improved alignment understanding diaphragmatic breathing Supine Exercise Name supine vs standing back to wall found better performance Reps/Minutes 6 Comments cued alignment, hands on ribcage, TA neutral pelvis awareness Sitting Exercises rocabado Sitting Exercise Name 6x6- challenged tongue behind upper teeth Equipment Used standing in mirror self feedback good self corrections Reps/Minutes 6 reps Comments found better understanding in mirror, challenged tongue contact roof mouth jaw opening Sitting Exercise Name w/tongue contact rough mouth Equipment 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, better self corrections alignment, challenged Reps/Minutes x10 Comments cues for slow movement & comfortable range Standing Exercises wall roll up Standing Exercise Name w/B shoulder ER> ext toward wall, attempt head near wall, TA/neutral LS Side bilateral Reps/Minutes 1 min x2 Comments a couple reps to work on getting LB & post head toward wall best can Manual Therapy Treatment Soft Tissue Mobilization intraoral Body Location L lat ptyergoid, masseter, med ptyergoid Mobilization Type Sustained Pressure,Other Intensity/Depth Superficial Body Position Hooklying Comments L TMJ today, sensitive to pressure, adjusted with feedback light pressure sustained vs pincer knead/ little circles as tolerated, discussed self performance for pain relief. cervical Body Location SOR, SCM & scalenes Mobilization Type Rolling,Sustained Pressure Intensity/Depth Moderate Body Position Hooklying Comments w/PROM cervical rotation jaw Body Location external L>R Mobilization Type Rolling,Strumming,Sustained Pressure Intensity/Depth Superficial Body Position Hooklying Comments masseter, temporalis, med ptyergoid, along inf angle of jaw border, hypoglossal, suprahyoids. Instruction on self application with understanding seems helpful. Self-Care/Home Management Treatment Education Patient Education Home Exercise Program,Pain Management,Posture Other Education Extra time spent education breath, alignment with neck, trunk posture and mandible in mirror trng with reasoning selection of HEP better understanding. Initiated Self STMs intraoral sustained pressure/ pincer kneading with relaxed jaw/ tongue. PT-OP-T Assessment and Plan Start: 07/25/21 18:05 Freq: Status: Active Protocol: Document 08/11/21 10:36 SP (Rec: 08/11/21 12:48 SP [id number]) Physical Therapy Assessment Goals eating [facility]ci Goal (LTG) Pt will be able to eat all breads w/o issue and will be able to eat foods without feeling concerned re: inc pain . LTG Duration 09/26/21 jaw Short Term Goal (STG) Pt will impove jaw opening to at least 38 mm to show improved ROM. STG Duration 08/26/21 [facility] Goal (LTG) Pt will improve jaw opening to 45 mm without lat deviation in order to allow pt to eat as she would like. LTG Duration 09/26/21 cervical Short Term Goal (STG) Pt will improve cervical rotation 10 deg B to improve ability to look when driving. STG Duration 08/26/21 Assembly Line Robot Operator Goal (LTG) Pt will improve cervical rotation 2 deg B to improve ability to look when driving and have no pain in jaw w/ rotation LTG Duration 09/26/21 Assessment Summary Assessment Pt improved self corrections racabado ex 6x6 in mirror self corrections, noted challenged with tongue maintain contact with roof mouth behind teeth as though muscle tiring. HEP review better understanding. Physical Therapy Plan Frequency and Duration Frequency of Treatment 1-2x/week Duration of Treatment 2 months Plan of Care Start Date 07/26/21 Plan of Care End Date 09/26/21 Therapeutic Interventions Therapeutic Interventions Home Exercise Program,Joint Mobilizations,Manual Therapy, Neuromuscular Re-education, Patient/Caregiver Education, Self-Care/Home Management,Soft Tissue Mobilization,Taping, Therapeutic Activities, Therapeutic Exercises Modalities Cold Pack/Ice Massage,Electric Stimulation,Hot Packs, Ultrasound Next Visit Focus/Plan Next Note Type Treatment Note Next Visit Plan recheck 6x6 in mirror. next add CS rotation head nods at wall POC: review wall posture w/ shld ext, seated diaphragmatic breathing, cont to work on cervical and jaw mobility
--- NOTE | 2021-08-14 10:30 | PT.OTN ---
Current Diagnoses Unspecified temporomandibular joint disorder, unspecified side (08/14/21) Cervicalgia (08/14/21) Myalgia of mastication muscle (08/14/21) Abnormal posture (08/14/21) Weakness (08/14/21) Physical Therapy Treatment Note PT-OP-A Visit Information Start: 07/25/21 18:05 Freq: Status: Active Protocol: Document 08/14/21 09:49 SP (Rec: 08/14/21 10:38 SP [id number]) Out-Patient Physical Therapy Visit Information Visit Information Visit Type Treatment Note Visit Note 01/02 Visit Start Time 09:49 Visit Stop Time 10:30 Total Visit Minutes 41 Visit Number 5 Number of SHIFT COMMANDER Visits 2 PT-OP-B Current Condition Start: 07/25/21 18:05 Freq: Status: Active Protocol: Document 07/26/21 13:49 [facility] (Rec: 07/26/21 14:35 [facility] [id number]) Current Condition History of Current Condition Onset Date >1 year ago Current Complaints L TMJ History of Current Condition Pt reports for over a year the jaw started giving her some issues and she got to the point where she couldn't open her mouth all the way and couldn't eat crunchy foods. It got worse over time. Dentist told her to use warm moist heat and stretch by opening her mouth and moving it side ot side. She is now reporting that she is much better. Pt reports she has gotten back to eating breads w/tough crust but does it carefully. She can no longer take a bite of an apple or carrots so has to cut apples or cook carrots. Pt reports L jaw still sore but can open her mouth a lot wider than she could a month ago. Pt reports selevar has a stiff neck but no typical pain. She has osteopenia and takes calcium and does yoga and tries to walk daily. Denies ringing in her ears or any hearing changes. She gets HAs and reports she has sinus issues. She gets NAVARRETE infrequently now (once a month or less). NAVARRETE at forehead when she gets them. Reports she tends to have back problems and has seen a chiropractor for that but not her neck. Pt was a little under the weather over the weekend and was yawning a lot and sam thinks that may be why her jaw feels better. Pt reports she is a very light sleeper and she doesn't clench. Notes she can' t sleep on her back d/t coughing. She takes tylenol w/ codine which helps the cough. She does feel rested when seh wakes up. Denies any lightheadness or dizziness Treatment Goals Patient/Caregiver Goals L jaw soreness to go away, be able to not have to worry about eating crusty bread at least. PT-OP-C Subjective Start: 07/25/21 18:05 Freq: Status: Active Protocol: Document 08/14/21 09:49 SP (Rec: 08/14/21 10:38 SP [id number]) OP-PT Subjective Patient Comments Patient Comments Pt reports found doing her jaw exercises in the mirror but can't open jaw all the way yet . Still has pain with eating crunchy foods: salad, raw carrots, not seeing significant gains in ROM. The jaw pain is better overall, was little more Fri to today. MIrror helps for self feedback . PT-OP-F Manual Assessment Start: 07/25/21 18:05 Freq: Status: Active Protocol: Document 07/26/21 13:49 [facility] (Rec: 07/26/21 16:19 [facility] [id number]) Manual Assessments Soft Tissue Assessment Soft Tissue Mobility Assessment tightness L>R masseter, temporalis, med ptyerygoid, along inf and post jaw, R >L tightness lat ptyergoid Joint Mobility Assessment Joint Mobility Assessment post shear of R side w/closing , ant shear B w/opening and deviation to L PT-OP-J Posture/Palpation/Skin Start: 07/25/21 18:05 Freq: Status: Active Protocol: Document 07/26/21 13:49 [facility] (Rec: 07/26/21 16:20 [facility] [id number]) Posture Evaluation Comments Posture Comments significant kyphosis w/fwd head and upper cervical ext w/ slight R lat SB. PT-OP-K Range of Motion Start: 07/25/21 18:05 Freq: Status: Active Protocol: Document 07/26/21 13:49 [facility] (Rec: 07/26/21 14:35 [facility] [id number]) Cervical Spine Range of Motion Cervical Spine Active Degrees Flexion 24 Extension 33 Rotation Left 32 Rotation Right 35 Lateral Flexion Left 5 Lateral Flexion Right 3 Comments can feel it in her jaw when turning L TMJ Range of Motion Jaw Openning Jaw Openning (mm) 32 PT-OP-Q Treatments Start: 07/25/21 18:05 Freq: Status: Active Protocol: Document 08/14/21 09:49 SP (Rec: 08/14/21 10:38 SP [id number]) Therapeutic Exercises Supine Exercises CS ext neutral Supine Exercise Name neutral chin nod positioning supine>at wall carryover Equipment Used supine> toward wall towel behind head Reps/Minutes 5 sec hold x5 Comments improved alignment understanding Sitting Exercises rocabado Sitting Exercise Name 6x6- challenged tongue behind upper teeth Resistance discussed not performed this txw Equipment Used standing in mirror self feedback good self corrections Reps/Minutes 6 reps Comments found better understanding in mirror, challenged tongue contact roof mouth jaw opening Sitting Exercise Name w/tongue contact rough mouth Equipment 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, better self corrections alignment, challenged Reps/Minutes x10 Comments cues for slow movement & comfortable range Standing Exercises shld ER TB Standing Exercise Name reviewed a past HEP for her for postural alignment form Resistance Tb #1 (progress TB #2 next tx) Reps/Minutes x10 Comments good form, elbows at side wall roll up Standing Exercise Name w/B shoulder ER> ext toward wall, attempt head near wall, TA/neutral LS Side bilateral Equipment Used reviewed Reps/Minutes 10s hold x5 Comments finds tiring but good work, painfree Other Exercises quadruped: Other Exercise Name cat cow, CS ext neutral Resistance added to HEP Reps/Minutes x5, 5s hold x5 Comments good feedback ROM and post CS tiring but found good work Manual Therapy Treatment Soft Tissue Mobilization intraoral Body Location L lat ptyergoid, masseter, med ptyergoid Mobilization Type Sustained Pressure,Other Intensity/Depth Superficial Body Position Hooklying Comments L TMJ today, able to tolerate more than light contact pressure today, adjusted with feedback light pressure and able tolerate pincer knead/ little circles as tolerated, instructed self performance for pain relief, able to perform for home application today. cervical Body Location SOR, SCM & scalenes Mobilization Type Rolling,Sustained Pressure Intensity/Depth Moderate Body Position Hooklying Comments w/PROM cervical rotation, instructed self SCM STMs with good feedback able to complete . jaw Body Location external L>R Mobilization Type Rolling,Strumming,Sustained Pressure Intensity/Depth Superficial Body Position Hooklying Comments masseter, temporalis, med ptyergoid, along inf angle of jaw border, hypoglossal, suprahyoids. Instruction on self application with understanding seems helpful. PT-OP-T Assessment and Plan Start: 07/25/21 18:05 Freq: Status: Active Protocol: Document 08/14/21 09:49 SP (Rec: 08/14/21 10:38 SP [id number]) Physical Therapy Assessment Goals eating Masonry Inspector Goal (LTG) Pt will be able to eat all breads w/o issue and will be able to eat foods without feeling concerned re: inc pain . 08/14/21: (progresing) not having pain with crusty breads . LTG Duration 09/26/21 jaw Short Term Goal (STG) Pt will impove jaw opening to at least 38 mm to show improved ROM. STG Duration 08/26/21 Half-Way Goal (LTG) Pt will improve jaw opening to 45 mm without lat deviation in order to allow pt to eat as she would like. LTG Duration 09/26/21 cervical Short Term Goal (STG) Pt will improve cervical rotation 10 deg B to improve ability to look when driving. STG Duration 08/26/21 Masonry Inspector Goal (LTG) Pt will improve cervical rotation 2 deg B to improve ability to look when driving and have no pain in jaw w/ rotation LTG Duration 09/26/21 Assessment Summary Assessment Pt improved tolerance to pressure STMs intraoral and ableto perform self for home carry over. Pt better understanding use of mirror and mechanics postural alignment education for carry over self corrections. Initiated quadruped has performed yoga inpast. Pt requested hand written HEP reminders for reacall, not needing pics, scanned PT copy. GOod feedback progression this tx. Physical Therapy Plan Frequency and Duration Frequency of Treatment 1-2x/week Duration of Treatment 2 months Plan of Care Start Date 07/26/21 Plan of Care End Date 09/26/21 Therapeutic Interventions Therapeutic Interventions Home Exercise Program,Joint Mobilizations,Manual Therapy, Neuromuscular Re-education, Patient/Caregiver Education, Self-Care/Home Management,Soft Tissue Mobilization,Taping, Therapeutic Activities, Therapeutic Exercises Modalities Cold Pack/Ice Massage,Electric Stimulation,Hot Packs, Ultrasound Next Visit Focus/Plan Next Note Type Treatment Note Next Visit Plan recheck 6x6 in mirror, postural shld ER, quadruped CS alignment against gravity. POC: seated diaphragmatic breathing, cont to work on cervical and jaw mobility
--- NOTE | 2021-08-17 16:54 | PT.OTN ---
Current Diagnoses Unspecified temporomandibular joint disorder, unspecified side (08/17/21) Cervicalgia (08/17/21) Myalgia of mastication muscle (08/17/21) Abnormal posture (08/17/21) Weakness (08/17/21) Physical Therapy Treatment Note PT-OP-A Visit Information Start: 07/25/21 18:05 Freq: Status: Active Protocol: Document 08/17/21 16:15 J (Rec: 08/17/21 16:29 J [id number]) Out-Patient Physical Therapy Visit Information Visit Information Visit Type Treatment Note Visit Note 02/02 SPT Maria Teresa was directly supervised by JENNIFER Krishna Visit Start Time 15:20 Visit Stop Time 16:10 Total Visit Minutes 50 Visit Number 6 Number of MANAGER SEARCH Visits 0 PT-OP-B Current Condition Start: 07/25/21 18:05 Freq: Status: Active Protocol: Document 07/26/21 13:49 LR (Rec: 07/26/21 14:35 [facility] [id number]) Current Condition History of Current Condition Onset Date >1 year ago Current Complaints L TMJ History of Current Condition Pt reports for over a year the jaw started giving her some issues and she got to the point where she couldn't open her mouth all the way and couldn't eat crunchy foods. It got worse over time. Dentist told her to use warm moist heat and stretch by opening her mouth and moving it side ot side. She is now reporting that she is much better. Pt reports she has gotten back to eating breads w/tough crust but does it carefully. She can no longer take a bite of an apple or carrots so has to cut apples or cook carrots. Pt reports L jaw still sore but can open her mouth a lot wider than she could a month ago. Pt reports selevar has a stiff neck but no typical pain. She has osteopenia and takes calcium and does yoga and tries to walk daily. Denies ringing in her ears or any hearing changes. She gets HAs and reports she has sinus issues. She gets NAVARRETE infrequently now (once a month or less). NAVARRETE at forehead when she gets them. Reports she tends to have back problems and has seen a chiropractor for that but not her neck. Pt was a little under the weather over the weekend and was yawning a lot and seh thinks that may be why her jaw feels better. Pt reports she is a very light sleeper and she doesn't clench. Notes she can' t sleep on her back d/t coughing. She takes tylenol w/ codine which helps the cough. She does feel rested when [facility] wakes up. Denies any lightheadness or dizziness Treatment Goals Patient/Caregiver Goals L jaw soreness to go away, be able to not have to worry about eating crusty bread at least. PT-OP-C Subjective Start: 07/25/21 18:05 Freq: Status: Active Protocol: Document 08/17/21 16:15 JG (Rec: 08/17/21 16:29 J [id number]) OP-PT Subjective Patient Comments Patient Comments Pt forgot about her appt earlier today because she was at a rehersal for [facility]. PT-OP-F Manual Assessment Start: 07/25/21 18:05 Freq: Status: Active Protocol: Document 07/26/21 13:49 [facility] (Rec: 07/26/21 16:19 [facility] [id number]) Manual Assessments Soft Tissue Assessment Soft Tissue Mobility Assessment tightness L>R masseter, temporalis, med ptyerygoid, along inf and post jaw, R >L tightness lat ptyergoid Joint Mobility Assessment Joint Mobility Assessment post shear of R side w/closing , ant shear B w/opening and deviation to L PT-OP-J Posture/Palpation/Skin Start: 07/25/21 18:05 Freq: Status: Active Protocol: Document 07/26/21 13:49 [facility] (Rec: 07/26/21 16:20 [facility] [id number]) Posture Evaluation Comments Posture Comments significant kyphosis w/fwd head and upper cervical ext w/ slight R lat SB. PT-OP-K Range of Motion Start: 07/25/21 18:05 Freq: Status: Active Protocol: Document 07/26/21 13:49 [facility] (Rec: 07/26/21 14:35 [facility] [id number]) Cervical Spine Range of Motion Cervical Spine Active Degrees Flexion 24 Extension 33 Rotation Left 32 Rotation Right 35 Lateral Flexion Left 5 Lateral Flexion Right 3 Comments can feel it in her jaw when turning L TMJ Range of Motion Jaw Openning Jaw Openning (mm) 32 PT-OP-Q Treatments Start: 07/25/21 18:05 Freq: Status: Active Protocol: Document 08/17/21 16:15 JG (Rec: 08/17/21 16:29 [id number]) Therapeutic Exercises Supine Exercises diaphragmatic breathing Supine Exercise Name sitting Reps/Minutes 5 breaths Comments cue hand placement, breathing pace Sitting Exercises rocabado Sitting Exercise Name 6x6- challenged tongue behind upper teeth Reps/Minutes 1 set of 6 exercises Comments min cue for chin tuck Standing Exercises wall roll up Standing Exercise Name w/bilat shld ER Side bilateral Reps/Minutes 2x90 sec Comments cue to flex knees, feet farther from wall, pelvic tilt , slow roll up Other Exercises quadruped: Other Exercise Name CS ext neutral Reps/Minutes 2x45 sec Comments mod cue for neutral spine, chin tuck Manual Therapy Treatment Soft Tissue Mobilization jaw Body Location external L>R Mobilization Type Myofascial Release, Oscillations,Rolling,Strumming ,Sustained Pressure Intensity/Depth Superficial Body Position Hooklying Comments masseter, temporalis, med ptyergoid, along inf angle of jaw border, hypoglossal, suprahyoids. w/some open/close of mouth PT-OP-T Assessment and Plan Start: 07/25/21 18:05 Freq: Status: Active Protocol: Document 08/17/21 16:15 JG (Rec: 08/17/21 16:29 [id number]) Physical Therapy Assessment Goals eating Industrial Relations Representative Goal (LTG) Pt will be able to eat all breads w/o issue and will be able to eat foods without feeling concerned re: inc pain . 08/14/21: (progresing) not having pain with crusty breads . LTG Duration 09/26/21 jaw Short Term Goal (STG) Pt will impove jaw opening to at least 38 mm to show improved ROM. STG Duration 08/26/21 Penitentiary Goal (LTG) Pt will improve jaw opening to 45 mm without lat deviation in order to allow pt to eat as she would like. LTG Duration 09/26/21 cervical Short Term Goal (STG) Pt will improve cervical rotation 10 deg B to improve ability to look when driving. STG Duration 08/26/21 Industrial Relations Representative Goal (LTG) Pt will improve cervical rotation 2 deg B to improve ability to look when driving and have no pain in jaw w/ rotation LTG Duration 09/26/21 Assessment Summary Assessment Pt presented to PT w/improved ability to open jaw and no increase in pain. Pt continues req mod cues to obtain neutral spine in standing and quad positons and while pt finds the positions tiring, she has improved ability to maintain posture. Pt felt decreased pain during jaw palpation and, after manual therapy, had decreased soft tissue knots in L jaw tissue. Physical Therapy Plan Frequency and Duration Frequency of Treatment 1-2x/week Duration of Treatment 2 months Plan of Care Start Date 07/26/21 Plan of Care End Date 09/26/21 Next Visit Focus/Plan Next Note Type Treatment Note Next Visit Plan progress standing, quad posture exercise. MT: intraoral, jaw, cervical for functional mobility and increase ability to open jaw.
--- NOTE | 2021-08-23 12:30 | PT.OTN ---
Current Diagnoses Unspecified temporomandibular joint disorder, unspecified side (08/23/21) Cervicalgia (08/23/21) Myalgia of mastication muscle (08/23/21) Abnormal posture (08/23/21) Weakness (08/23/21) Physical Therapy Treatment Note PT-OP-A Visit Information Start: 07/25/21 18:05 Freq: Status: Active Protocol: Document 08/23/21 08:07 [facility] (Rec: 08/23/21 12:30 [facility] [id number]) Out-Patient Physical Therapy Visit Information Visit Information Visit Type Treatment Note Visit Note 03/04 Visit Start Time 08:16 Visit Stop Time 09:00 Total Visit Minutes 44 Visit Number 7 Number of RING ROLLING MACHINE OPERATOR Visits 0 PT-OP-B Current Condition Start: 07/25/21 18:05 Freq: Status: Active Protocol: Document 07/26/21 13:49 [facility] (Rec: 07/26/21 14:35 [facility] [id number]) Current Condition History of Current Condition Onset Date >1 year ago Current Complaints L TMJ History of Current Condition Pt reports for over a year the jaw started giving her some issues and she got to the point where she couldn't open her mouth all the way and couldn't eat crunchy foods. It got worse over time. Dentist told her to use warm moist heat and stretch by opening her mouth and moving it side ot side. She is now reporting that she is much better. Pt reports she has gotten back to eating breads w/tough crust but does it carefully. She can no longer take a bite of an apple or carrots so has to cut apples or cook carrots. Pt reports L jaw still sore but can open her mouth a lot wider than she could a month ago. Pt reports sam has a stiff neck but no typical pain. She has osteopenia and takes calcium and does yoga and tries to walk daily. Denies ringing in her ears or any hearing changes. She gets HAs and reports she has sinus issues. She gets NAVARRETE infrequently now (once a month or less). NAVARRETE at forehead when she gets them. Reports she tends to have back problems and has seen a chiropractor for that but not her neck. Pt was a little under the weather over the weekend and was yawning a lot and sam thinks that may be why her jaw feels better. Pt reports she is a very light sleeper and she doesn't clench. Notes she can' t sleep on her back d/t coughing. She takes tylenol w/ codine which helps the cough. She does feel rested when seh wakes up. Denies any lightheadness or dizziness Treatment Goals Patient/Caregiver Goals L jaw soreness to go away, be able to not have to worry about eating crusty bread at least. PT-OP-C Subjective Start: 07/25/21 18:05 Freq: Status: Active Protocol: Document 08/23/21 08:07 [facility] (Rec: 08/23/21 12:30 [facility] [id number]) OP-PT Subjective Patient Comments Patient Comments Pt reports she has been able to eat more crunchy things and was able to eat steak the other day. still pain when opening wide. PT-OP-F Manual Assessment Start: 07/25/21 18:05 Freq: Status: Active Protocol: Document 07/26/21 13:49 [facility] (Rec: 07/26/21 16:19 [facility] [id number]) Manual Assessments Soft Tissue Assessment Soft Tissue Mobility Assessment tightness L>R masseter, temporalis, med ptyerygoid, along inf and post jaw, R >L tightness lat ptyergoid Joint Mobility Assessment Joint Mobility Assessment post shear of R side w/closing , ant shear B w/opening and deviation to L PT-OP-J Posture/Palpation/Skin Start: 07/25/21 18:05 Freq: Status: Active Protocol: Document 07/26/21 13:49 [facility] (Rec: 07/26/21 16:20 [facility] [id number]) Posture Evaluation Comments Posture Comments significant kyphosis w/fwd head and upper cervical ext w/ slight R lat SB. PT-OP-K Range of Motion Start: 07/25/21 18:05 Freq: Status: Active Protocol: Document 07/26/21 13:49 [facility] (Rec: 07/26/21 14:35 [facility] [id number]) Cervical Spine Range of Motion Cervical Spine Active Degrees Flexion 24 Extension 33 Rotation Left 32 Rotation Right 35 Lateral Flexion Left 5 Lateral Flexion Right 3 Comments can feel it in her jaw when turning L TMJ Range of Motion Jaw Openning Jaw Openning (mm) 32 PT-OP-Q Treatments Start: 07/25/21 18:05 Freq: Status: Active Protocol: Document 08/23/21 08:07 [facility] (Rec: 08/23/21 12:30 [facility] [id number]) Therapeutic Exercises Standing Exercises wall roll up Standing Exercise Name w/bilat shld ER, shoulder ext & abd Side bilateral Reps/Minutes 2 min Comments cue to flex knees, feet farther from wall, pelvic tilt , slow roll up Other Exercises plank Other Exercise Name hands and feet Side bilateral Reps/Minutes [id number] Comments cues for scap position quadruped: Other Exercise Name cat cow, CS ext neutral Resistance added to HEP Reps/Minutes x5, 10s hold x4 Comments good feedback ROM and post CS tiring but found good work Manual Therapy Treatment Soft Tissue Mobilization cervical Body Location paraspinals, SCM & scalenes Mobilization Type Rolling,Sustained Pressure Intensity/Depth Moderate Body Position Hooklying Comments L>R jaw Body Location external L>R Mobilization Type Myofascial Release, Oscillations,Rolling,Strumming ,Sustained Pressure Intensity/Depth Superficial Comments masseter, temporalis, med ptyergoid, along inf angle of jaw border, Joint Mobilizations cervical Joint C1 & C2 transverse R FM Grade II PT-OP-T Assessment and Plan Start: 07/25/21 18:05 Freq: Status: Active Protocol: Document 08/23/21 08:07 [facility] (Rec: 08/23/21 12:30 [facility] [id number]) Physical Therapy Assessment Goals eating Cryptologist Goal (LTG) Pt will be able to eat all breads w/o issue and will be able to eat foods without feeling concerned re: inc pain . 08/14/21: (progresing) not having pain with crusty breads . LTG Duration 09/26/21 jaw Short Term Goal (STG) Pt will impove jaw opening to at least 38 mm to show improved ROM. STG Duration 08/26/21 Correction Goal (LTG) Pt will improve jaw opening to 45 mm without lat deviation in order to allow pt to eat as she would like. LTG Duration 09/26/21 cervical Short Term Goal (STG) Pt will improve cervical rotation 10 deg B to improve ability to look when driving. STG Duration 08/26/21 Cryptologist Goal (LTG) Pt will improve cervical rotation 2 deg B to improve ability to look when driving and have no pain in jaw w/ rotation LTG Duration 09/26/21 Assessment Summary Assessment Pt did well with exercises but did require cuieng for neutral thoracic, lumbar and neck alignment during quaduped /plank exercises. She did well after the first couple reps with improved ability to get into the correct position. Physical Therapy Plan Frequency and Duration Frequency of Treatment 1-2x/week Duration of Treatment 2 months Plan of Care Start Date 07/26/21 Plan of Care End Date 09/26/21 Next Visit Focus/Plan Next Note Type Treatment Note Next Visit Plan progress standing, quad posture exercise. MT: intraoral, jaw, cervical for functional mobility and increase ability to open jaw.
--- NOTE | 2021-08-28 11:51 | PT.OTN ---
Current Diagnoses Unspecified temporomandibular joint disorder, unspecified side (08/28/21) Cervicalgia (08/28/21) Myalgia of mastication muscle (08/28/21) Abnormal posture (08/28/21) Weakness (08/28/21) Physical Therapy Treatment Note PT-OP-A Visit Information Start: 07/25/21 18:05 Freq: Status: Active Protocol: Document 08/28/21 10:32 [facility] (Rec: 08/28/21 11:48 [facility] [id number]) Out-Patient Physical Therapy Visit Information Visit Information Visit Type Treatment Note Visit Note 04/04 Visit Start Time 10:31 Visit Stop Time 11:14 Total Visit Minutes 43 Visit Number 8 Number of TOOL BUILDER Visits 0 PT-OP-B Current Condition Start: 07/25/21 18:05 Freq: Status: Active Protocol: Document 07/26/21 13:49 [facility] (Rec: 07/26/21 14:35 [facility] [id number]) Current Condition History of Current Condition Onset Date >1 year ago Current Complaints L TMJ History of Current Condition Pt reports for over a year the jaw started giving her some issues and she got to the point where she couldn't open her mouth all the way and couldn't eat crunchy foods. It got worse over time. Dentist told her to use warm moist heat and stretch by opening her mouth and moving it side ot side. She is now reporting that she is much better. Pt reports she has gotten back to eating breads w/tough crust but does it carefully. She can no longer take a bite of an apple or carrots so has to cut apples or cook carrots. Pt reports L jaw still sore but can open her mouth a lot wider than she could a month ago. Pt reports sam has a stiff neck but no typical pain. She has osteopenia and takes calcium and does yoga and tries to walk daily. Denies ringing in her ears or any hearing changes. She gets HAs and reports she has sinus issues. She gets NAVARRETE infrequently now (once a month or less). NAVARRETE at forehead when she gets them. Reports she tends to have back problems and has seen a chiropractor for that but not her neck. Pt was a little under the weather over the weekend and was yawning a lot and sam thinks that may be why her jaw feels better. Pt reports she is a very light sleeper and she doesn't clench. Notes she can' t sleep on her back d/t coughing. She takes tylenol w/ codine which helps the cough. She does feel rested when se wakes up. Denies any lightheadness or dizziness Treatment Goals Patient/Caregiver Goals L jaw soreness to go away, be able to not have to worry about eating crusty bread at least. PT-OP-C Subjective Start: 07/25/21 18:05 Freq: Status: Active Protocol: Document 08/28/21 10:32 [facility] (Rec: 08/28/21 11:48 [facility] [id number]) OP-PT Subjective Patient Comments Patient Comments Pt reports slowly improving w/ jaw mobility and comfort Patient Reported Progress Improving PT-OP-F Manual Assessment Start: 07/25/21 18:05 Freq: Status: Active Protocol: Document 07/26/21 13:49 [facility] (Rec: 07/26/21 16:19 [facility] [id number]) Manual Assessments Soft Tissue Assessment Soft Tissue Mobility Assessment tightness L>R masseter, temporalis, med ptyerygoid, along inf and post jaw, R >L tightness lat ptyergoid Joint Mobility Assessment Joint Mobility Assessment post shear of R side w/closing , ant shear B w/opening and deviation to L PT-OP-J Posture/Palpation/Skin Start: 07/25/21 18:05 Freq: Status: Active Protocol: Document 07/26/21 13:49 [facility] (Rec: 07/26/21 16:20 [facility] [id number]) Posture Evaluation Comments Posture Comments significant kyphosis w/fwd head and upper cervical ext w/ slight R lat SB. PT-OP-K Range of Motion Start: 07/25/21 18:05 Freq: Status: Active Protocol: Document 07/26/21 13:49 [facility] (Rec: 07/26/21 14:35 [facility] [id number]) Cervical Spine Range of Motion Cervical Spine Active Degrees Flexion 24 Extension 33 Rotation Left 32 Rotation Right 35 Lateral Flexion Left 5 Lateral Flexion Right 3 Comments can feel it in her jaw when turning L TMJ Range of Motion Jaw Openning Jaw Openning (mm) 32 PT-OP-Q Treatments Start: 07/25/21 18:05 Freq: Status: Active Protocol: Document 08/28/21 10:32 [facility] (Rec: 08/28/21 11:48 [facility] [id number]) Therapeutic Exercises Supine Exercises axial elongation Supine Exercise Name chin tuck w/very small lift working on DNF Side bilateral Reps/Minutes 5 sec x10 Other Exercises plank Other Exercise Name hands and feet w/wash cloth under hand Side bilateral Reps/Minutes 2 x25sec Comments cues for scap position & back position & head position quadruped: Other Exercise Name cat cow, CS ext neutral Resistance added to HEP Reps/Minutes x5, 60 sec hold Comments good feedback ROM and post CS tiring but found good work Manual Therapy Treatment Soft Tissue Mobilization cervical Body Location SCM L>R Mobilization Type Rolling,Sustained Pressure Intensity/Depth Moderate Body Position Hooklying jaw Body Location external L>R Mobilization Type Myofascial Release, Oscillations,Rolling,Strumming ,Sustained Pressure Intensity/Depth Superficial Comments masseter, temporalis, med ptyergoid, along inf angle of jaw border, Joint Mobilizations cervical Grade II Comments 1. C1 transverse glide 2. C5 AP L jaw Joint distraction Grade II Comments very gentle w/mobs PT-OP-T Assessment and Plan Start: 07/25/21 18:05 Freq: Status: Active Protocol: Document 08/28/21 10:32 [facility] (Rec: 08/28/21 11:48 [facility] [id number]) Physical Therapy Assessment Goals eating Assisted Goal (LTG) Pt will be able to eat all breads w/o issue and will be able to eat foods without feeling concerned re: inc pain . 08/14/21: (progresing) not having pain with crusty breads . LTG Duration 09/26/21 jaw Short Term Goal (STG) Pt will impove jaw opening to at least 38 mm to show improved ROM. STG Duration 08/26/21 Director Of Automation Goal (LTG) Pt will improve jaw opening to 45 mm without lat deviation in order to allow pt to eat as she would like. LTG Duration 09/26/21 cervical Short Term Goal (STG) Pt will improve cervical rotation 10 deg B to improve ability to look when driving. STG Duration 08/26/21 Director Of Automation Goal (LTG) Pt will improve cervical rotation 2 deg B to improve ability to look when driving and have no pain in jaw w/ rotation LTG Duration 09/26/21 Assessment Summary Assessment Pt improving with ability to find neutral in quadruped and in plank but requires cuieng to get full set up then occ cues during those exercises for loss of scap & cervical positioning. Improving jaw opening. Some ant cervical tightness makes it so pt needs to extend cspine to get full opening Physical Therapy Plan Frequency and Duration Frequency of Treatment 1-2x/week Duration of Treatment 2 months Plan of Care Start Date 07/26/21 Plan of Care End Date 09/26/21 Next Visit Focus/Plan Next Note Type Treatment Note Next Visit Plan progress standing, quad posture exercise. MT: intraoral, jaw, cervical for functional mobility and increase ability to open jaw. Focus on ant cervical structures to improve ability to open jaw w/o cervical ext
--- NOTE | 2021-08-31 13:06 | PT.OTN ---
Current Diagnoses Unspecified temporomandibular joint disorder, unspecified side (08/31/21) Cervicalgia (08/31/21) Myalgia of mastication muscle (08/31/21) Abnormal posture (08/31/21) Weakness (08/31/21) Physical Therapy Treatment Note PT-OP-A Visit Information Start: 07/25/21 18:05 Freq: Status: Active Protocol: Document 08/31/21 12:15 SP (Rec: 08/31/21 14:36 SP [id number]) Out-Patient Physical Therapy Visit Information Visit Information Visit Type Treatment Note Visit Note 05/05- PN next tx. Visit Start Time 12:15 Visit Stop Time 13:06 Total Visit Minutes 51 Visit Number 9 Number of PSYCHIATRIC SOCIAL WORKER Visits 1 PT-OP-B Current Condition Start: 07/25/21 18:05 Freq: Status: Active Protocol: Document 07/26/21 13:49 LR (Rec: 07/26/21 14:35 [facility] [id number]) Current Condition History of Current Condition Onset Date >1 year ago Current Complaints L TMJ History of Current Condition Pt reports for over a year the jaw started giving her some issues and she got to the point where she couldn't open her mouth all the way and couldn't eat crunchy foods. It got worse over time. Dentist told her to use warm moist heat and stretch by opening her mouth and moving it side ot side. She is now reporting that she is much better. Pt reports she has gotten back to eating breads w/tough crust but does it carefully. She can no longer take a bite of an apple or carrots so has to cut apples or cook carrots. Pt reports L jaw still sore but can open her mouth a lot wider than she could a month ago. Pt reports selevar has a stiff neck but no typical pain. She has osteopenia and takes calcium and does yoga and tries to walk daily. Denies ringing in her ears or any hearing changes. She gets HAs and reports she has sinus issues. She gets NAVARRETE infrequently now (once a month or less). NAVARRETE at forehead when she gets them. Reports she tends to have back problems and has seen a chiropractor for that but not her neck. Pt was a little under the weather over the weekend and was yawning a lot and seh thinks that may be why her jaw feels better. Pt reports she is a very light sleeper and she doesn't clench. Notes she can' t sleep on her back d/t coughing. She takes tylenol w/ codine which helps the cough. She does feel rested when seh wakes up. Denies any lightheadness or dizziness Treatment Goals Patient/Caregiver Goals L jaw soreness to go away, be able to not have to worry about eating crusty bread at least. PT-OP-C Subjective Start: 07/25/21 18:05 Freq: Status: Active Protocol: Document 08/31/21 12:15 SP (Rec: 08/31/21 14:36 SP [id number]) OP-PT Subjective Patient Comments Patient Comments Pt reports seems like I have platued about 2.5inches of ability to open my mouth. Pt states can eat everything wants to eat like kale and opening up mouth to brush her teeth with no pain. Still has point specific pain over L inferior angle of her mandible . Reported no significant improvement with manual and ther ex completed last tx to improve pain at end range opening. Pt stated can turn head better after last tx, not sure what can do on own to decrease neck tightness. PT-OP-F Manual Assessment Start: 07/25/21 18:05 Freq: Status: Active Protocol: Document 07/26/21 13:49 [facility] (Rec: 07/26/21 16:19 [facility] [id number]) Manual Assessments Soft Tissue Assessment Soft Tissue Mobility Assessment tightness L>R masseter, temporalis, med ptyerygoid, along inf and post jaw, R >L tightness lat ptyergoid Joint Mobility Assessment Joint Mobility Assessment post shear of R side w/closing , ant shear B w/opening and deviation to L PT-OP-J Posture/Palpation/Skin Start: 07/25/21 18:05 Freq: Status: Active Protocol: Document 07/26/21 13:49 [facility] (Rec: 07/26/21 16:20 [facility] [id number]) Posture Evaluation Comments Posture Comments significant kyphosis w/fwd head and upper cervical ext w/ slight R lat SB. PT-OP-K Range of Motion Start: 07/25/21 18:05 Freq: Status: Active Protocol: Document 07/26/21 13:49 [facility] (Rec: 07/26/21 14:35 [facility] [id number]) Cervical Spine Range of Motion Cervical Spine Active Degrees Flexion 24 Extension 33 Rotation Left 32 Rotation Right 35 Lateral Flexion Left 5 Lateral Flexion Right 3 Comments can feel it in her jaw when turning L TMJ Range of Motion Jaw Openning Jaw Openning (mm) 32 PT-OP-Q Treatments Start: 07/25/21 18:05 Freq: Status: Active Protocol: Document 08/31/21 12:15 SP (Rec: 08/31/21 14:36 SP [id number]) Therapeutic Exercises Sitting Exercises sitting posture Sitting Exercise Name ribcage elevation, elongate neck w/ chin nod Equipment Used mat table in room chair height 18 Reps/Minutes 5 sec hold x5 Comments extra time spent on postural alignment Standing Exercises resisted shld ext Side bilateral Resistance TB #1 Reps/Minutes 2x10 Comments cued posture, scap stab and CS neutral w/ chin nod alignment self STMs Standing Exercise Name racquetball on wall interscap/ UT, theracane UT, Lev Scap Reps/Minutes 6 min, provided HOs Comments MWM head nods/ turns, scap mobility- good decreased tightness feedback shld ER TB Standing Exercise Name discussion performs as HEP and confident wall roll up Standing Exercise Name w/bilat shld ER, shoulder ext & abd Side bilateral Reps/Minutes x2 Comments cue to flex knees, feet farther from wall, pelvic tilt , slow roll up Other Exercises quadruped: Other Exercise Name cat cow, CS ext neutral Resistance reviewed HEP Equipment Used used pt's phone to take pic of self for alignment corrections Reps/Minutes x5, 60 sec hold Comments good feedback ROM and post CS tiring but found good work Self-Care/Home Management Treatment Education Patient Education Body Mechanics,Pain Management ,Posture Other Education Extra time spent education alignment with neck, trunk posture and mandible in at wall, seated, discussed posture eating/ reading and side sleeping w/ use of pillows with feedback better understanding for self corrections when does any activities. Initiated resisted shld ext and self STMs MWM using theracane posterior neck and ball wall roll post scap, good feedback response. 15 min PT-OP-T Assessment and Plan Start: 07/25/21 18:05 Freq: Status: Active Protocol: Document 08/31/21 12:15 SP (Rec: 08/31/21 14:36 SP [id number]) Physical Therapy Assessment Goals eating Data Warehouse Specialist Goal (LTG) Pt will be able to eat all breads w/o issue and will be able to eat foods without feeling concerned re: inc pain . 08/14/21: (progresing) not having pain with crusty breads . 08/31/20: Pt states can eat everything wants to eat like kale and opening up mouth to brush her teeth with no pain but really tiring. LTG Duration 09/26/21 jaw Short Term Goal (STG) Pt will impove jaw opening to at least 38 mm to show improved ROM. STG Duration 08/26/21 Alf Goal (LTG) Pt will improve jaw opening to 45 mm without lat deviation in order to allow pt to eat as she would like. LTG Duration 09/26/21 cervical Short Term Goal (STG) Pt will improve cervical rotation 10 deg B to improve ability to look when driving. STG Duration 08/26/21 Alf Goal (LTG) Pt will improve cervical rotation 2 deg B to improve ability to look when driving and have no pain in jaw w/ rotation LTG Duration 09/26/21 Assessment Summary Assessment Pt improved with postural correction understanding and performance quadruped, seated and at wall. Initiated standing resisted shld ext with improve self corrections post cues for neck/trunk elongation. Decreased neck tightness post instruction in STMs using theracane and ball on wall in sock MWM to perform at home for self comfort. Physical Therapy Plan Frequency and Duration Frequency of Treatment 1-2x/week Duration of Treatment 2 months Plan of Care Start Date 07/26/21 Plan of Care End Date 09/26/21 Therapeutic Interventions Therapeutic Interventions Home Exercise Program,Joint Mobilizations,Manual Therapy, Neuromuscular Re-education, Patient/Caregiver Education, Self-Care/Home Management,Soft Tissue Mobilization,Taping, Therapeutic Activities, Therapeutic Exercises Modalities Cold Pack/Ice Massage,Electric Stimulation,Hot Packs, Ultrasound Next Visit Focus/Plan Next Note Type Treatment Note Next Visit Plan progress standing, quad posture exercise. MT: intraoral, jaw, cervical for functional mobility and increase ability to open jaw. Focus on ant cervical structures to improve ability to open jaw w/o cervical ext
--- NOTE | 2021-09-04 11:39 | PT.OTN ---
Current Diagnoses Unspecified temporomandibular joint disorder, unspecified side (09/04/21) Cervicalgia (09/04/21) Myalgia of mastication muscle (09/04/21) Abnormal posture (09/04/21) Weakness (09/04/21) Physical Therapy Treatment Note PT-OP-A Visit Information Start: 07/25/21 18:05 Freq: Status: Active Protocol: Document 09/04/21 10:40 [facility] (Rec: 09/04/21 11:39 [facility] [id number]) Out-Patient Physical Therapy Visit Information Visit Information Visit Type Progress Note Visit Note 09/04 Visit Start Time 10:38 Visit Stop Time 11:16 Total Visit Minutes 38 Visit Number 10 Number of REGULATORY AFFAIRS ASSOCIATE Visits 0 PT-OP-B Current Condition Start: 07/25/21 18:05 Freq: Status: Active Protocol: Document 07/26/21 13:49 [facility] (Rec: 07/26/21 14:35 [facility] [id number]) Current Condition History of Current Condition Onset Date >1 year ago Current Complaints L TMJ History of Current Condition Pt reports for over a year the jaw started giving her some issues and she got to the point where she couldn't open her mouth all the way and couldn't eat crunchy foods. It got worse over time. Dentist told her to use warm moist heat and stretch by opening her mouth and moving it side ot side. She is now reporting that she is much better. Pt reports she has gotten back to eating breads w/tough crust but does it carefully. She can no longer take a bite of an apple or carrots so has to cut apples or cook carrots. Pt reports L jaw still sore but can open her mouth a lot wider than she could a month ago. Pt reports sam has a stiff neck but no typical pain. She has osteopenia and takes calcium and does yoga and tries to walk daily. Denies ringing in her ears or any hearing changes. She gets HAs and reports she has sinus issues. She gets NAVARRETE infrequently now (once a month or less). NAVARRETE at forehead when she gets them. Reports she tends to have back problems and has seen a chiropractor for that but not her neck. Pt was a little under the weather over the weekend and was yawning a lot and sam thinks that may be why her jaw feels better. Pt reports she is a very light sleeper and she doesn't clench. Notes she can' t sleep on her back d/t coughing. She takes tylenol w/ codine which helps the cough. She does feel rested when seh wakes up. Denies any lightheadness or dizziness Treatment Goals Patient/Caregiver Goals L jaw soreness to go away, be able to not have to worry about eating crusty bread at least. PT-OP-C Subjective Start: 07/25/21 18:05 Freq: Status: Active Protocol: Document 09/04/21 10:40 [facility] (Rec: 09/04/21 11:39 [facility] [id number]) OP-PT Subjective Patient Comments Patient Comments Pt reports her shoulder is sore from moving snow. Notes she isn't sure if the exercises irritate it. Notes jaw has that ache at the widest point. Pt had a kale salad and taht was hard to chew. Pt has a really sore cold sore on her lip so wants to avoid intraoral stuff. PT-OP-F Manual Assessment Start: 07/25/21 18:05 Freq: Status: Active Protocol: Document 07/26/21 13:49 [facility] (Rec: 07/26/21 16:19 [facility] [id number]) Manual Assessments Soft Tissue Assessment Soft Tissue Mobility Assessment tightness L>R masseter, temporalis, med ptyerygoid, along inf and post jaw, R >L tightness lat ptyergoid Joint Mobility Assessment Joint Mobility Assessment post shear of R side w/closing , ant shear B w/opening and deviation to L PT-OP-J Posture/Palpation/Skin Start: 07/25/21 18:05 Freq: Status: Active Protocol: Document 07/26/21 13:49 [facility] (Rec: 07/26/21 16:20 [facility] [id number]) Posture Evaluation Comments Posture Comments significant kyphosis w/fwd head and upper cervical ext w/ slight R lat SB. PT-OP-K Range of Motion Start: 07/25/21 18:05 Freq: Status: Active Protocol: Document 07/26/21 13:49 [facility] (Rec: 07/26/21 14:35 [facility] [id number]) Cervical Spine Range of Motion Cervical Spine Active Degrees Flexion 24 Extension 33 Rotation Left 32 Rotation Right 35 Lateral Flexion Left 5 Lateral Flexion Right 3 Comments can feel it in her jaw when turning L TMJ Range of Motion Jaw Openning Jaw Openning (mm) 32 PT-OP-Q Treatments Start: 07/25/21 18:05 Freq: Status: Active Protocol: Document 09/04/21 10:40 [facility] (Rec: 09/04/21 11:39 [facility] [id number]) Manual Therapy Treatment Soft Tissue Mobilization cervical Body Location SCM & Scalenes L>R, SOR Mobilization Type Rolling,Sustained Pressure Intensity/Depth Moderate Body Position Hooklying Comments w/chin tucks Joint Mobilizations cervical Comments 1. C1 & C2 transverse glide R & UPA L 2. C3,4,5 AP L Self-Care/Home Management Treatment Education Other Education edu to work on ice/heat to R shoulder and rest from exercises until feels better. Discussed will re-assess return next visit, Shown anatomy of neck and jaw and importance of AP mobility of cervical spine to help w/jaw mobility, edu to try eating a softer fruit like peach/pear etc that requires same big opening of jaw along w/bite down to assess prior trying to bite apple unless she feels like she is really ready for it. 8 min total PT-OP-T Assessment and Plan Start: 07/25/21 18:05 Freq: Status: Active Protocol: Document 09/04/21 10:40 [facility] (Rec: 09/04/21 11:39 [facility] [id number]) Physical Therapy Assessment Goals eating Spare Parts Clerk Goal (LTG) Pt will be able to eat all breads w/o issue and will be able to eat foods without feeling concerned re: inc pain . 08/14/21: (progresing) not having pain with crusty breads . 08/31/20: Pt states can eat everything wants to eat like kale and opening up mouth to brush her teeth with no pain but really tiring. 09/04-kale tiring, no issues w/ other foods but has not tried apple LTG Duration 09/26/21 jaw Short Term Goal (STG) Pt will impove jaw opening to at least 38 mm to show improved ROM. 09/04-improving w/pt feeling like she has good opening but w/slight post L jaw pain STG Duration 08/26/21 Jail Goal (LTG) Pt will improve jaw opening to 45 mm without lat deviation in order to allow pt to eat as she would like. 09/04-no lat deviation today. Improving jaw opening but some discomfort at end range in post sup jaw LTG Duration 09/26/21 cervical Short Term Goal (STG) Pt will improve cervical rotation 10 deg B to improve ability to look when driving. 09/04-improved ROM w/less stiffness w/pt reporting greater ease of motion STG Duration 08/26/21 Spare Parts Clerk Goal (LTG) Pt will improve cervical rotation 20 deg B to improve ability to look when driving and have no pain in jaw w/ rotation LTG Duration 09/26/21 Assessment Summary Assessment Pt is improving with the ability to open her jaw more and doesn't feel limited by foods. Notes her jaw does tire out w/eating some foods like raw kale salad and has not tried and apple yet. When she opens it to its widest, she does get pain in L post sup jaw, but that improved w/ manual treatment today to no pain. Physical Therapy Plan Frequency and Duration Frequency of Treatment 1-2x/week Duration of Treatment 2 months Plan of Care Start Date 07/26/21 Plan of Care End Date 09/26/21 Next Visit Focus/Plan Next Note Type Treatment Note Next Visit Plan review shoulder exercsies and make sure not causing pain, work on C1 & C2 mobility along w/other upper cervical AP gentle & soft tissue to improve jaw opening w/o discomfort.
--- NOTE | 2021-09-07 11:15 | PT.OTN ---
Current Diagnoses Unspecified temporomandibular joint disorder, unspecified side (09/07/21) Cervicalgia (09/07/21) Myalgia of mastication muscle (09/07/21) Abnormal posture (09/07/21) Weakness (09/07/21) Physical Therapy Treatment Note PT-OP-A Visit Information Start: 07/25/21 18:05 Freq: Status: Active Protocol: Document 09/07/21 10:35 SP (Rec: 09/07/21 11:34 SP [id number]) Out-Patient Physical Therapy Visit Information Visit Information Visit Type Treatment Note Visit Note 10/05 Visit Start Time 10:35 Visit Stop Time 11:15 Total Visit Minutes 40 Visit Number 11 Number of CLOTH FINISHING RANGE OPERATOR CHIEF Visits 1 PT-OP-B Current Condition Start: 07/25/21 18:05 Freq: Status: Active Protocol: Document 07/26/21 13:49 LR (Rec: 07/26/21 14:35 [facility] [id number]) Current Condition History of Current Condition Onset Date >1 year ago Current Complaints L TMJ History of Current Condition Pt reports for over a year the jaw started giving her some issues and she got to the point where she couldn't open her mouth all the way and couldn't eat crunchy foods. It got worse over time. Dentist told her to use warm moist heat and stretch by opening her mouth and moving it side ot side. She is now reporting that she is much better. Pt reports she has gotten back to eating breads w/tough crust but does it carefully. She can no longer take a bite of an apple or carrots so has to cut apples or cook carrots. Pt reports L jaw still sore but can open her mouth a lot wider than she could a month ago. Pt reports selevar has a stiff neck but no typical pain. She has osteopenia and takes calcium and does yoga and tries to walk daily. Denies ringing in her ears or any hearing changes. She gets HAs and reports she has sinus issues. She gets NAVARRETE infrequently now (once a month or less). NAVARRETE at forehead when she gets them. Reports she tends to have back problems and has seen a chiropractor for that but not her neck. Pt was a little under the weather over the weekend and was yawning a lot and sam thinks that may be why her jaw feels better. Pt reports she is a very light sleeper and she doesn't clench. Notes she can' t sleep on her back d/t coughing. She takes tylenol w/ codine which helps the cough. She does feel rested when seh wakes up. Denies any lightheadness or dizziness Treatment Goals Patient/Caregiver Goals L jaw soreness to go away, be able to not have to worry about eating crusty bread at least. PT-OP-C Subjective Start: 07/25/21 18:05 Freq: Status: Active Protocol: Document 09/07/21 10:35 SP (Rec: 09/07/21 11:34 SP [id number]) OP-PT Subjective Patient Comments Patient Comments Pt reports is able to turn head better, able to open jaw wider but still pain inferior L mandible at end feel. Pt is mindful of what eats, challenged eating kale still tiring and jaw gets irritated causing pain. She stated will complete scheduled appts but doesn't see PT has fixed her pain and not sure if continuing more will make a difference. She also stated thinks unrelated, seeing her dentist soon for tooth pain, tooth is loose and root not anchored well in her mouth, L mid mandible maybe #22, knows it's not her molars due to doesn't have anymore. PT-OP-F Manual Assessment Start: 07/25/21 18:05 Freq: Status: Active Protocol: Document 07/26/21 13:49 [facility] (Rec: 07/26/21 16:19 [facility] [id number]) Manual Assessments Soft Tissue Assessment Soft Tissue Mobility Assessment tightness L>R masseter, temporalis, med ptyerygoid, along inf and post jaw, R >L tightness lat ptyergoid Joint Mobility Assessment Joint Mobility Assessment post shear of R side w/closing , ant shear B w/opening and deviation to L PT-OP-J Posture/Palpation/Skin Start: 07/25/21 18:05 Freq: Status: Active Protocol: Document 07/26/21 13:49 [facility] (Rec: 07/26/21 16:20 [facility] [id number]) Posture Evaluation Comments Posture Comments significant kyphosis w/fwd head and upper cervical ext w/ slight R lat SB. PT-OP-K Range of Motion Start: 07/25/21 18:05 Freq: Status: Active Protocol: Document 07/26/21 13:49 LR (Rec: 07/26/21 14:35 [facility] [id number]) Cervical Spine Range of Motion Cervical Spine Active Degrees Flexion 24 Extension 33 Rotation Left 32 Rotation Right 35 Lateral Flexion Left 5 Lateral Flexion Right 3 Comments can feel it in her jaw when turning L TMJ Range of Motion Jaw Openning Jaw Openning (mm) 32 PT-OP-Q Treatments Start: 07/25/21 18:05 Freq: Status: Active Protocol: Document 09/07/21 10:35 SP (Rec: 09/07/21 11:34 SP [id number]) Therapeutic Exercises Supine Exercises axial elongation Supine Exercise Name chin tuck w/very small lift working on DNF Side bilateral Reps/Minutes 5 sec x10 Sitting Exercises sitting posture Sitting Exercise Name ribcage elevation, elongate neck w/ chin nod Equipment Used mat table in room chair height 18 Reps/Minutes 5 sec hold x5 Comments extra time spent on postural alignment Standing Exercises pec stretch Equipment Used doorway Reps/Minutes 30 x2 Comments cued neutral head ext neutral alignment- good feeling stretch postural alignmet in mirror Comments reviewed off wall in mirror, CS ext and chin tuck L SB to neutral shld ER TB Standing Exercise Name Reviewed HEP Resistance Tb #1 (bilat shld ER, shoulder ext & abd) Equipment Used in mirror for self feedback Reps/Minutes 2 sec hold x8 Comments cued level shld, head SB to neutral Manual Therapy Treatment Soft Tissue Mobilization cervical Body Location SCM & Scalenes L>R, SOR Mobilization Type Rolling,Sustained Pressure Intensity/Depth Moderate Body Position Hooklying Comments manual and MWM chin tucks and head turns Self-Care/Home Management Treatment Education Other Education Reviewed anatomy of neck and jaw, alignment and importance of AP and turn mobility of cervical spine to help w/jaw mobility. Discussed will re-assess return next visit. PT-OP-T Assessment and Plan Start: 07/25/21 18:05 Freq: Status: Active Protocol: Document 09/07/21 10:35 SP (Rec: 09/07/21 11:34 SP [id number]) Physical Therapy Assessment Goals eating Jail Goal (LTG) Pt will be able to eat all breads w/o issue and will be able to eat foods without feeling concerned re: inc pain . 08/14/21: (progresing) not having pain with crusty breads . 08/31/20: Pt states can eat everything wants to eat like kale and opening up mouth to brush her teeth with no pain but really tiring. 09/04-kale tiring, no issues w/ other foods but has not tried apple LTG Duration 09/26/21 jaw Short Term Goal (STG) Pt will impove jaw opening to at least 38 mm to show improved ROM. 09/04-improving w/pt feeling like she has good opening but w/slight post L jaw pain STG Duration 08/26/21 Jail Goal (LTG) Pt will improve jaw opening to 45 mm without lat deviation in order to allow pt to eat as she would like. 09/04-no lat deviation today. Improving jaw opening but some discomfort at end range in post sup jaw LTG Duration 09/26/21 cervical Short Term Goal (STG) Pt will improve cervical rotation 10 deg B to improve ability to look when driving. 09/04-improved ROM w/less stiffness w/pt reporting greater ease of motion STG Duration 08/26/21 Jail Goal (LTG) Pt will improve cervical rotation 20 deg B to improve ability to look when driving and have no pain in jaw w/ rotation LTG Duration 09/26/21 Assessment Summary Assessment Pt improved postural corrections in mirror and able utilize TB for little more effort post manual, painfree. She stated is challenging maintaining neutral neck alignment due to scoliosis curvature and knows head positioning is a result the curvature compensations. CLOTH FINISHING RANGE OPERATOR CHIEF provided instruction self STMs SCM and suboccipital MWM head nod/ turns with noted improved decrease tension post neck and feels able elongate neck more. Pt reported not as much tension on neck end of tx . Physical Therapy Plan Frequency and Duration Frequency of Treatment 1-2x/week Duration of Treatment 2 months Plan of Care Start Date 07/26/21 Plan of Care End Date 09/26/21 Therapeutic Interventions Therapeutic Interventions Home Exercise Program,Joint Mobilizations,Manual Therapy, Neuromuscular Re-education, Patient/Caregiver Education, Self-Care/Home Management,Soft Tissue Mobilization,Taping, Therapeutic Activities, Therapeutic Exercises Modalities Cold Pack/Ice Massage,Electric Stimulation,Hot Packs, Ultrasound Next Visit Focus/Plan Next Note Type Treatment Note Next Visit Plan Recheck resisted shld ext and rows next tx and pec stretch in doorway added last tx, give hand out if ok still. POC: review shoulder exercsies and make sure not causing pain, work on C1 & C2 mobility along w/other upper cervical AP gentle & soft tissue to improve jaw opening w/o discomfort.
--- NOTE | 2021-09-11 10:58 | PT-OP ANOTE ---
Pt called re: no show and notes she was confused because she thought we would be closed for the holiday. She was informed this will count as no show. Pt informed of next appt.
--- NOTE | 2021-09-14 15:20 | PT.OTN ---
Current Diagnoses Unspecified temporomandibular joint disorder, unspecified side (09/14/21) Cervicalgia (09/14/21) Myalgia of mastication muscle (09/14/21) Abnormal posture (09/14/21) Weakness (09/14/21) Physical Therapy Treatment Note PT-OP-A Visit Information Start: 07/25/21 18:05 Freq: Status: Active Protocol: Document 09/14/21 14:37 SP (Rec: 09/14/21 15:53 SP [id number]) Out-Patient Physical Therapy Visit Information Visit Information Visit Type Treatment Note Visit Note 11/02 Visit Start Time 14:37 Visit Stop Time 15:20 Total Visit Minutes 43 Visit Number 12 Number of INSULATION BOARD HEAD SAW OPERATOR Visits 2 PT-OP-B Current Condition Start: 07/25/21 18:05 Freq: Status: Active Protocol: Document 07/26/21 13:49 LR (Rec: 07/26/21 14:35 [facility] [id number]) Current Condition History of Current Condition Onset Date >1 year ago Current Complaints L TMJ History of Current Condition Pt reports for over a year the jaw started giving her some issues and she got to the point where she couldn't open her mouth all the way and couldn't eat crunchy foods. It got worse over time. Dentist told her to use warm moist heat and stretch by opening her mouth and moving it side ot side. She is now reporting that she is much better. Pt reports she has gotten back to eating breads w/tough crust but does it carefully. She can no longer take a bite of an apple or carrots so has to cut apples or cook carrots. Pt reports L jaw still sore but can open her mouth a lot wider than she could a month ago. Pt reports selevar has a stiff neck but no typical pain. She has osteopenia and takes calcium and does yoga and tries to walk daily. Denies ringing in her ears or any hearing changes. She gets HAs and reports she has sinus issues. She gets NAVARRETE infrequently now (once a month or less). NAVARRETE at forehead when she gets them. Reports she tends to have back problems and has seen a chiropractor for that but not her neck. Pt was a little under the weather over the weekend and was yawning a lot and sam thinks that may be why her jaw feels better. Pt reports she is a very light sleeper and she doesn't clench. Notes she can' t sleep on her back d/t coughing. She takes tylenol w/ codine which helps the cough. She does feel rested when seh wakes up. Denies any lightheadness or dizziness Treatment Goals Patient/Caregiver Goals L jaw soreness to go away, be able to not have to worry about eating crusty bread at least. PT-OP-C Subjective Start: 07/25/21 18:05 Freq: Status: Active Protocol: Document 09/14/21 14:37 SP (Rec: 09/14/21 15:53 SP [id number]) OP-PT Subjective Patient Comments Patient Comments Pt states jaw much better able to eat what she wants: breads , kale. She still has little point specific discomfort sub L inferior angle of mandible, will be seeing dentist soon to assess tooth pain L mandible and maybe could be the root of pain still having. She reports thinks has a good HEP and thinking might be able to continue on own. PT-OP-F Manual Assessment Start: 07/25/21 18:05 Freq: Status: Active Protocol: Document 07/26/21 13:49 [facility] (Rec: 07/26/21 16:19 [facility] [id number]) Manual Assessments Soft Tissue Assessment Soft Tissue Mobility Assessment tightness L>R masseter, temporalis, med ptyerygoid, along inf and post jaw, R >L tightness lat ptyergoid Joint Mobility Assessment Joint Mobility Assessment post shear of R side w/closing , ant shear B w/opening and deviation to L PT-OP-J Posture/Palpation/Skin Start: 07/25/21 18:05 Freq: Status: Active Protocol: Document 07/26/21 13:49 [facility] (Rec: 07/26/21 16:20 [facility] [id number]) Posture Evaluation Comments Posture Comments significant kyphosis w/fwd head and upper cervical ext w/ slight R lat SB. PT-OP-K Range of Motion Start: 07/25/21 18:05 Freq: Status: Active Protocol: Document 07/26/21 13:49 [facility] (Rec: 07/26/21 14:35 [facility] [id number]) Cervical Spine Range of Motion Cervical Spine Active Degrees Flexion 24 Extension 33 Rotation Left 32 Rotation Right 35 Lateral Flexion Left 5 Lateral Flexion Right 3 Comments can feel it in her jaw when turning L TMJ Range of Motion Jaw Openning Jaw Openning (mm) 32 PT-OP-Q Treatments Start: 07/25/21 18:05 Freq: Status: Active Protocol: Document 09/14/21 14:37 SP (Rec: 09/14/21 15:53 SP [id number]) Therapeutic Exercises Supine Exercises axial elongation Supine Exercise Name chin tuck w/very small lift working on DNF Side bilateral Reps/Minutes 5 sec x10 Sitting Exercises jaw opening Sitting Exercise Name w/tongue contact rough mouth Resistance isometric on R mandible- painfree Equipment Used imagery intelligence mirror, better self corrections alignment Reps/Minutes x10 Comments cues for slow movement & comfortable range, no pain Standing Exercises resisted shld ext Side bilateral Resistance 1. TB #2 x10 reps, 2. hold CS rotation w/ head not painfree range Reps/Minutes 2x10 Comments cued posture, scap stab and CS neutral w/ chin nod alignment shld ER TB Standing Exercise Name Reviewed HEP Resistance Tb #2 Equipment Used in mirror for self feedback Reps/Minutes 2 sec hold x8 Comments cued level shld, head SB L to neutral alignment wall roll up Standing Exercise Name w/bilat shld ER Side bilateral Reps/Minutes x2 Comments cue for soft knee, post pelvic tilt, slow roll up Other Exercises quadruped: Other Exercise Name cat cow x5, CS ext neutral 60 sec hold, UE ext x5 contact table Resistance reviewed HEP Equipment Used used pt's phone to take pic of self for alignment corrections Reps/Minutes x5, 60 sec hold Comments cued level shlds and CS neutral,good feedback CS tiring but found good work Manual Therapy Treatment Soft Tissue Mobilization cervical Body Location SCM & Scalenes L>R, SOR Mobilization Type Rolling,Sustained Pressure Intensity/Depth Moderate Body Position Hooklying Comments manual and MWM chin tucks and head turns PT-OP-T Assessment and Plan Start: 07/25/21 18:05 Freq: Status: Active Protocol: Document 09/14/21 14:37 SP (Rec: 09/14/21 15:53 SP [id number]) Physical Therapy Assessment Goals eating Detention Goal (LTG) Pt will be able to eat all breads w/o issue and will be able to eat foods without feeling concerned re: inc pain . 08/14/21: (progresing) not having pain with crusty breads . 08/31/20: Pt states can eat everything wants to eat like kale and opening up mouth to brush her teeth with no pain but really tiring. 09/04-kale tiring, no issues w/ other foods but has not tried apple 09/14/21: back to normal, pain free. Only has pain with the exercises now. LTG Duration 09/26/21 jaw Short Term Goal (STG) Pt will impove jaw opening to at least 38 mm to show improved ROM. 09/04-improving w/pt feeling like she has good opening but w/slight post L jaw pain 09/14/21: 30mm open, feels somthing but not pain. STG Duration 08/26/21 Detention Goal (LTG) Pt will improve jaw opening to 45 mm without lat deviation in order to allow pt to eat as she would like. 09/04-no lat deviation today. Improving jaw opening but some discomfort at end range in post sup jaw LTG Duration 09/26/21 cervical Short Term Goal (STG) Pt will improve cervical rotation 10 deg B to improve ability to look when driving. 09/04-improved ROM w/less stiffness w/pt reporting greater ease of motion STG Duration 08/26/21 [employer] Demonstrator Goal (LTG) Pt will improve cervical rotation 20 deg B to improve ability to look when driving and have no pain in jaw w/ rotation LTG Duration 09/26/21 Assessment Summary Assessment Pt stated TMJ painfree during resisted R mandible open/ closing this tx. She responded well to manual CS musculature, stated less tension over posterior neck and able to get deeper stretch during supine elongation. Occasional cues level shlds and chin tuck with improved self corrections quadruped scap stabilization to allow shld flexion slides. Able to add CS rotation w/ nods with resisted ext hold, no pain good increase effort with relaxed jaw cue for awareness. Physical Therapy Plan Frequency and Duration Frequency of Treatment 1-2x/week Duration of Treatment 2 months Plan of Care Start Date 07/26/21 Plan of Care End Date 09/26/21 Therapeutic Interventions Therapeutic Interventions Home Exercise Program,Joint Mobilizations,Manual Therapy, Neuromuscular Re-education, Patient/Caregiver Education, Self-Care/Home Management,Soft Tissue Mobilization,Taping, Therapeutic Activities, Therapeutic Exercises Modalities Cold Pack/Ice Massage,Electric Stimulation,Hot Packs, Ultrasound Next Visit Focus/Plan Next Note Type Treatment Note Next Visit Plan Check: 2 more tx scheduled, pt considering DC. Recheck resisted shld ext with CS rotation nods progressed last tx. POC: work on C1 & C2 mobility along w/other upper cervical AP gentle & soft tissue to improve jaw opening w/o discomfort.
--- NOTE | 2021-09-18 16:44 | PT.OTN ---
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 It got worse over time. Dentist told her to use warm moist heat and stretch by opening her mouth and moving it side ot side. She is now reporting that she is much better. Pt reports she has gotten back to eating breads w/tough crust but does it carefully. She can no longer take a bite of an apple or carrots so has to cut apples or cook carrots. Pt reports L jaw still sore but can open her mouth a lot wider than she could a month ago. Pt reports selevar has a stiff neck but no typical pain. She has osteopenia and takes calcium and does yoga and tries to walk daily. Denies ringing in her ears or any hearing changes. She gets HAs and reports she has sinus issues. She gets NAVARRETE infrequently now (once a month or less). NAVARRETE at forehead when she gets them. Reports she tends to have back problems and has seen a chiropractor for that but not her neck. Pt was a little under the weather over the weekend and was yawning a lot and seh thinks that may be why her jaw feels better. Pt reports she is a very light sleeper and she doesn't clench. Notes she can' t sleep on her back d/t coughing. She takes tylenol w/ codine which helps the cough. She does feel rested when the [facility] wakes up. Denies any lightheadness or dizziness Treatment Goals Patient/Caregiver Goals L jaw soreness to go away, be able to not have to worry about eating crusty bread at least. PT-OP-C Subjective Start: 07/25/21 18:05 Freq: Status: Active Protocol: Document 09/18/21 10:26 [facility] (Rec: 09/18/21 16:44 [facility] [id number]) OP-PT Subjective Patient Comments Patient Comments Pt reports no issues with jaw w/eating things she wants to eat or opening wide. Notes tooth is her only problem and will see dentist next week. PT-OP-F Manual Assessment Start: 07/25/21 18:05 Freq: Status: Active Protocol: Document 07/26/21 13:49 [facility] (Rec: 07/26/21 16:19 [facility] [id number]) Manual Assessments Soft Tissue Assessment Soft Tissue Mobility Assessment tightness L>R masseter, temporalis, med ptyerygoid, along inf and post jaw, R >L tightness lat ptyergoid Joint Mobility Assessment Joint Mobility Assessment post shear of R side w/closing , ant shear B w/opening and deviation to L PT-OP-J Posture/Palpation/Skin Start: 07/25/21 18:05 Freq: Status: Active Protocol: Document 07/26/21 13:49 [facility] (Rec: 07/26/21 16:20 [facility] [id number]) Posture Evaluation Comments Posture Comments significant kyphosis w/fwd head and upper cervical ext w/ slight R lat SB. PT-OP-K Range of Motion Start: 07/25/21 18:05 Freq: Status: Active Protocol: Document 09/18/21 10:26 [facility] (Rec: 09/18/21 16:44 [facility] [id number]) Cervical Spine Range of Motion Cervical Spine Active Degrees Rotation Left 42 Rotation Right 44 TMJ Range of Motion Jaw Openning Jaw Openning (mm) 43 PT-OP-Q Treatments Start: 07/25/21 18:05 Freq: Status: Active Protocol: Document 09/18/21 10:26 [facility] (Rec: 09/18/21 16:44 [facility] [id number]) Therapeutic Exercises Supine Exercises diaphragmatic breathing Reps/Minutes 6 breaths Comments cue hand placement, breathing pace Sitting Exercises rocabado Sitting Exercise Name 6x6- challenged tongue behind upper teeth Reps/Minutes 1 set of 6 exercises Comments min cue for chin tuck Standing Exercises resisted shld ext Side bilateral Resistance 1. TB #2 x10 reps Reps/Minutes 15 Comments cued posture, scap stab and CS neutral w/ chin nod alignment Manual Therapy Treatment Soft Tissue Mobilization cervical Body Location SCM & Scalenes L>R, SOR Mobilization Type Rolling,Sustained Pressure Intensity/Depth Moderate Body Position Hooklying Comments manual and MWM chin tucks and head turns Joint Mobilizations cervical Joint C3 transverse R Self-Care/Home Management Treatment Education Patient Education Home Exercise Program Other Education discuss cont HEP and neck stretches addition; pt asked about massage therapy for neck and discussed insurance does not cover this but how it is beneficial maintanence care for neck mobility & that will help jaw overall too. edu to cont to work on posture and head position PT-OP-T Assessment and Plan Start: 07/25/21 18:05 Freq: Status: Active Protocol: Document 09/18/21 10:26 [facility] (Rec: 09/18/21 16:44 [facility] [id number]) Physical Therapy Assessment Goals eating Plant Scientist Goal (LTG) Pt will be able to eat all breads w/o issue and will be able to eat foods without feeling concerned re: inc pain . 08/14/21: (progresing) not having pain with crusty breads . 08/31/20: Pt states can eat everything wants to eat like kale and opening up mouth to brush her teeth with no pain but really tiring. 09/04-kale tiring, no issues w/ other foods but has not tried apple 09/14/21: back to normal, pain free. Only has pain with the exercises now. LTG Duration achieved no issues jaw Short Term Goal (STG) Pt will impove jaw opening to at least 38 mm to show improved ROM. 09/04-improving w/pt feeling like she has good opening but w/slight post L jaw pain 09/14/21: 30mm open, feels somthing but not pain. STG Duration 43 mm achieved Plant Scientist Goal (LTG) Pt will improve jaw opening to 45 mm without lat deviation in order to allow pt to eat as she would like. 09/04-no lat deviation today. Improving jaw opening but some discomfort at end range in post sup jaw LTG Duration close 43 mm and no pain cervical Short Term Goal (STG) Pt will improve cervical rotation 10 deg B to improve ability to look when driving. 09/04-improved ROM w/less stiffness w/pt reporting greater ease of motion STG Duration achieved Plant Scientist Goal (LTG) Pt will improve cervical rotation 20 deg B to improve ability to look when driving and have no pain in jaw w/ rotation LTG Duration 10 deg improvement Assessment Summary Assessment Pt has good TMJ ROM w/o pain or deviation and is indep w/ HEP. She has no foods taht she feels like her jaw is limiting her from. At this time, she has a tooth problem that limits her and she will see dentist. Pt instructed to cont HEP for cont neck ROM and jaw mobility. Physical Therapy Plan Discharge Physical Therapy Discharge Reasons Goals Met
== END 2021-09-26 08:26 | disposition home or self-care (01) ==
LOC: PHYS 10:30
PROVIDERS: Family Provider Student in an Organized Health Care Education/Training Program; PCP Student in an Organized Health Care Education/Training Program; Referring Provider Otolaryngology; Visit Provider Otolaryngology
DX: M26.609 Unspecified temporomandibular joint disorder, unspecified side (principal); R53.1 Weakness; M54.2 Cervicalgia; R29.3 Abnormal posture; M79.11 Myalgia of mastication muscle
CPT/HCPCS: 97110; 97140; 97161; 97535

== ENCOUNTER → 2022-05-10 09:47 | Outpatient (CLI) | payer MEDICARE, OTHER, SELFPAY | PROVIDERS: Family Provider Student in an Organized Health Care Education/Training Program; PCP Nurse Practitioner; Referring Provider Nurse Practitioner; Visit Provider Nurse Practitioner | DX: Z13.820 Encounter for screening for osteoporosis (principal) ==

== ENCOUNTER → 2022-05-11 11:47 | Outpatient (CLI) | payer MEDICARE, OTHER, SELFPAY | PROVIDERS: Family Provider Student in an Organized Health Care Education/Training Program; PCP Nurse Practitioner; Referring Provider Nurse Practitioner; Visit Provider Nurse Practitioner | DX: Z78.0 Asymptomatic menopausal state (principal); M85.89 Other specified disorders of bone density and structure, multiple sites; M81.0 Age-related osteoporosis without current pathological fracture | CPT/HCPCS: 77080 ==

== ENCOUNTER → 2024-04-01 14:19 | Outpatient (CLI) | payer MEDICARE, OTHER, SELFPAY ==
--- NOTE | 2024-04-01 14:21 | DI.RAD.S_ITS ---
PROCEDURE: XR HAND LT MIN 3V INDICATIONS: Hand injury TECHNIQUE: 3 views of the hand(s) acquired. COMPARISON: None. FINDINGS: Bones: No fractures or dislocations. Carpal bones are normally aligned. No suspicious bony lesions. Soft tissues: No suspicious soft tissue calcifications. IMPRESSION: No acute bony abnormality. Source of palpable abnormality is not seen. Follow-up targeted ultrasound may be warranted. Dictated by: Luis Meza M.D. on 04/01/2024 at 16:31 Approved by: Luis Meza M.D. on 04/01/2024 at 16:31
== END ==
PROVIDERS: Family Provider Student in an Organized Health Care Education/Training Program; PCP Nurse Practitioner; Referring Provider Nurse Practitioner Family; Visit Provider Nurse Practitioner Family
DX: S69.90XA Unspecified injury of unspecified wrist, hand and finger(s), initial encounter (principal); X58.XXXA Exposure to other specified factors, initial encounter
CPT/HCPCS: 73130

== ENCOUNTER 2025-05-02 16:23 | Emergency (ER) | payer MEDICARE, OTHER, SELFPAY ==
[2025-05-02 16:34] VITALS: BP 136/106; PULSE 91; RESP 16; TEMP 36.6; O2SAT 100; BMI 21.6
--- NOTE | 2025-05-02 16:54 | DI.RAD.S_ITS ---
PROCEDURE: XR LUMBAR SPINE 2-3V INDICATIONS: lower back pain since felt a POP TECHNIQUE: 3 views of the lumbar spine were acquired. COMPARISON: [facility], CR, XR LUMBAR SPINE 2 OR 3 VIEWS, 01/05/2020, 15:05. [facility], MR, MR LUMBAR SPINE WO CON, 02/03/2020, 18:47. FINDINGS: Bones: 5 [id number] vertebrae are present. No dextroconvex No vertebral body compression fractures. No suspicious bony lesions. There is at least moderate L5-S1 disc space narrowing. Mild disc space narrowing can be seen elsewhere. Lower lumbar spine facet arthropathy is seen. Bilateral hip degenerative change can be seen, left worse than right. Soft tissues: Overlying bowel gas pattern is normal. No suspicious soft tissue calcifications. IMPRESSION: No vanessa acute plain film abnormality is seen. Focal L5-S1 degenerative change. Mild dextroconvex scoliotic curvature is seen. Dictated by: Jax Javier M.D. on 05/02/2025 at 16:35 Approved by: Jax Javier M.D. on 05/02/2025 at 16:37
--- NOTE | 2025-05-02 19:20 | ED.BACK ---
HPI - Back Pain/Injury General Chief Complaint: Back Pain/Injury Stated Complaint: back injury / severe pain Time Seen by Provider: 05/02/25 19:20 Source: family History of Present Illness HPI Narrative: Patient is a 84-year-old female past medical history of GERD, COPD not requiring any supplemental oxygen comes into the ED from home for evaluation of low back pain, she states that she was lifting a bike into her car on , she states that she felt a pop to her low back however she denies any numbness weakness tingling to lower extremities denies any bowel or urinary incontinence or retention, denies any saddle paresthesias, states that she went to urgent care yesterday got a lidocaine patch and Toradol shot but states that she is still having persistent pain therefore decided come into the ED for further evaluation treatment. Related Data Home Medications ?Medication ?Instructions ?Recorded ?Confirmed ascorbic acid (vitamin C) 500 mg 500 mg PO BID ##0 01/21/17 05/01/25 tablet calcium acetate(phosphat bind) 667 1,200 mg PO QDAY ##0 01/21/17 05/01/25 mg capsule cholecalciferol (vitamin D3) 50 1 tab PO QDAY ##0 01/21/17 05/01/25 mcg (2,000 unit) tablet (Vitamin D3) glucosamine 1 ea PO BID ##0 01/21/17 05/01/25 sulfate-methylsulfonylmethane 250 mg-250 mg capsule olopatadine 0.1 % eye drops 1 drp OPHTH DAILY ##0 01/21/17 05/01/25 (Patanol) propranolol 10 mg tablet 10 mg PO QDAY PRN Anxiety ##0 01/21/17 05/01/25 tiotropium bromide 18 mcg capsule 1 puff INH QDAY ##0 01/21/17 05/01/25 with inhalation device (Spiriva with HandiHaler) salmeterol 50 mcg/dose blister 2 inh inhalation BID 12/09/23 05/01/25 powder for inhalation (Serevent Diskus) Previous Rx's ?Medication ?Instructions ?Recorded docusate sodium 250 mg capsule 250 mg PO BID #10 caps 03/06/20 clindamycin HCl 300 mg capsule 300 mg PO TID #21 caps 12/09/23 lidocaine 5 % topical patch 3 patch topical DAILY #15 ea 05/01/25 diazepam 2 mg tablet (Valium) 2 mg PO BEDTIME PRN muscle spasm 5 05/02/25 days #5 tabs methylprednisolone 4 mg tablets in See Rx Instructions PO .COMPLEX 05/02/25 a dose pack (Medrol (Rick)) #21 ea Allergies Allergy/AdvReac Type Severity Reaction Status Date / Time No Known Drug Allergies Allergy Verified 05/01/25 16:55 Review of Systems Review of Systems Narrative: General: Denies fever, chills, weight loss HEENT: Denies headache, eye drainage, eye irritation, head trauma, sore throat, voice change Cardiovascular: Denies any chest pain, palpitations, tachycardia Respiratory: Denies any shortness of breath, cough, wheeze, stridor GI/: Denies any abdominal pain, nausea, vomiting, diarrhea, bright red blood per rectum, melanotic stools, urinary frequency, urinary retention, dysuria, hematuria MSK: Positive low back pain Skin: Denies any rashes, lesions, discoloration Neuro: Denies any headache, lightheadedness, dizziness, fainting, weakness Psych: Denies SI/HI Patient History Family History Father COPD (chronic obstructive pulmonary disease) Congestive heart failure Old age Mother Breast cancer Social History household members: none alcohol intake frequency: 0-2 drinks per day Exam Narrative Exam Narrative: General: Cooperative, well-developed, not in acute distress HEENT: Normocephalic, atraumatic, PERRLA, normal sclera, eyelids normal Neck: Active full range of motion, atraumatic Chest: Normal to inspection, negative crepitus, no overlying erythema ecchymosis Respiratory: Normal respiratory effort, not in acute respiratory distress, clear to auscultation bilaterally negative cough, wheeze, tachypnea, rhonchi, rales Cardiology: Regular rate rhythm negative gallop, murmur, rubs GI/: No tenderness to palpation, soft, non rigid, normal to inspection, exam deferred MSK: Full active range of motion in all 4 extremities, atraumatic, no tenderness to palpation of any bony prominences, patient is able to stand bear weight ambulate with her walker which is her baseline however slowed secondary to pain, she is neurovascularly intact to bilateral lower extremities Skin: No rashes or lesions noted Neuro: Alert awake oriented x3, moves all 4 extremities spontaneously, cranial nerves intact, able to answer all questions appropriately follows commands appropriately Psych: Cooperative, negative suicidal or homicidal ideations Initial Vital Signs Initial Vital Signs: Vital Signs Temperature 97.8 F 05/02/25 16:34 Pulse Rate 91 H 05/02/25 16:34 Respiratory Rate 16 05/02/25 16:34 Blood Pressure 136/106 H 05/02/25 16:34 Pulse Oximetry 100 05/02/25 16:34 Oxygen Delivery Method Room Air 05/02/25 16:34 Course Orders Ordered: ED Orders 05/02/25 16:54 XR lumbar spine 2-3V Stat Vital Signs Vital signs: Vital Signs - 8 hr 05/02/25 16:34 Temperature 97.8 F Pulse Rate 91 H Respiratory Rate 16 Blood Pressure 136/106 H Pulse Oximetry 100 Oxygen Delivery Method Room Air MDM - Back Pain/Injury MDM Narrative Medical decision making narrative: Patient is a 84-year-old female past medical history of COPD not requiring any supplemental oxygen, comes into the ED from home for evaluation of low back pain, states it started on when she was lifting a bicycle into her car, she states that she felt a pop states that she has been having some pain to a low whole back primary to the left, he has positive straight leg test, she is neurovascularly intact to her lower extremity denies any red flags for cauda equina. Patient did have x-ray of her lumbar spine without any acute fractures, she was able to stand bear weight ambulate unassisted here at her baseline with a walker. She had no tenderness palpation of the midline spine reproducible tenderness to palpation of the left side paraspinal muscles, patient was given symptomatic relief discharged home with medications and instructed follow up with the primary care in outpatient setting, strict return precautions given verbalized understanding of this and agrees to being discharged home with outpatient follow up Discharge Plan Departure Patient Disposition: Home Clinical Impression: Low back pain Instructions: DI for Low Back Pain Activity Restrictions/Additional Instructions: Please follow up with the primary care doctor for continued evaluation treatment of your low back pain Please read the discharge instructions sheet carefully and bring all papers to all doctor follow-up visits, as it may contain information that your doctor may want to see. Disease processes change and evolve, if your symptoms worsen or if you develop any new symptoms that are concerning to you please return for evaluation. Your evaluation today does not show any evidence of any life-threatening/serious illnesses requiring admission to the hospital or surgery. Please follow-up with your doctor for re-evaluation in approximately 1 day. Seek immediate medical attention for any worrisome symptoms. *If you do not have a primary care provider please contact the [facility] Resource line at [phone]. They will ask some questions about your medical history and help get you set up with a doctor in the community. Prescriptions: New methylprednisolone [Medrol (Rick)] 4 mg tablets,dose pack See Rx Instructions .ROUTE .COMPLEX Qty: 21 0RF Rx Instructions: for 6 days diazepam [Valium] 2 mg tablet 2 mg PO BEDTIME PRN (Reason: muscle spasm) 5 Days Qty: 5 0RF No Action Serevent Diskus 50 mcg/dose blister with device 2 inh inhalation BID clindamycin HCl 300 mg capsule 300 mg PO TID Qty: 21 0RF lidocaine 5 % adhesive patch,medicated 3 patch topical DAILY Qty: 15 0RF Rx Instructions: leave on most painful area for up to 12 hrs propranolol 10 MG tablet 10 mg PO QDAY PRN (Reason: Anxiety) Qty: 0 olopatadine [Patanol] 5 ML drops 1 drp OPHTH DAILY Qty: 0 Spiriva with HandiHaler 18 MCG capsule, w/inhalation device 1 puff INH QDAY Qty: 0 ascorbic acid (vitamin C) 500 MG tablet 500 mg PO BID Qty: 0 calcium acetate(phosphat bind) 667 MG capsule 1,200 mg PO QDAY Qty: 0 cholecalciferol (vitamin D3) [Vitamin D3] 2,000 UNIT tablet 1 tab PO QDAY Qty: 0 glucosamine sulfate-msm 1 EACH capsule 1 ea PO BID Qty: 0 docusate sodium 250 mg Capsule 250 mg PO BID Qty: 10 0RF Referrals: Zelda Olivia ARNP [Primary Care Provider, Nursing] Stand Alone Forms: Patient Portal/API
[2025-05-02] MEDS: IBUPROFEN 400 MG TABLET PO (19:36)
[2025-05-02 20:04] VITALS: BP 148/88; PULSE 79; RESP 20; O2SAT 97
== END 2025-05-02 20:06 | disposition home or self-care (01) ==
PROVIDERS: Emergency Provider Student in an Organized Health Care Education/Training Program; Family Provider Student in an Organized Health Care Education/Training Program; PCP Nurse Practitioner
DX: M54.50 Low back pain, unspecified (principal); X50.9XXA Other and unspecified overexertion or strenuous movements or postures, initial encounter; J44.9 Chronic obstructive pulmonary disease, unspecified
CPT/HCPCS: 72100; 96372; 99283; J1100